=== PATIENT | female | born 1950 | race Caucasian/White ===

== ENCOUNTER → 2017-01-08 | Outpatient (CLI) | payer OTHER, MEDICARE ==
[~2017-01-08] MED LIST: AMLO2.5T PO; B-COCAP2 PO; CALC1CHW95 PO; CIME-56 PO; CYAN500T SL; CYCL5TAB PO; GLCS500 PO; HYDR0.5T PO; NSNN50 NAE; NTRGSL/4 UT; OMEG10007 PO; PANT40TA PO; PLQ200 PO; RALO60TA12 PO; SUMA100T16 PO; SUMA6KIT IM; SYN100 PO; TOPI100T34 PO; TRAM-10 PO; VALA500T60 PO; VITA1TAB4 PO; VITATAB11 PO; ZOLE5INJ IV
--- NOTE | 2017-01-08 15:19 | MAMMOGRAPHY REPORT ---
BILATERAL DIGITAL SCREENING MAMMOGRAM TOMOSYNTHESIS WITH CAD: 01/08/2017 CLINICAL HISTORY: Routine screening. Patient has no complaints. TECHNIQUE: Breast tomosynthesis in addition to standard 2D mammography was performed. Current study was also evaluated with a Computer Aided Detection (CAD) system. COMPARISON: Comparison is made to exams dated: 10/14/2014 mammogram - [facility], mammogram, 01/10/2011 mammogram, 11/07/2009 mammogram, 06/07/2008 mammogram, and 06/06/2007 junior mogram. BREAST COMPOSITION: The tissue of both breasts is heterogeneously dense, which may obscure small mas ses. FINDINGS: There is a benign rim calcification in the right breast. No suspicious mass, architectural distortion or cluster of microcalcifications is seen. IMPRESSION: ACR BI-RADS CATEGORY 1: NEGATIVE There is no mammographic evidence of malignancy. A 1 year screening mammogram is recommended. The pa tient will receive written notification of the results. Approximately 10% of breast cancers are not detected with mammography. A negative mammographic report should not delay biopsy if a clinically suggestive mass is present. Sonia Barnes M.D. ay/:01/08/2017 12:30:37 Sound Equipment Mechanic: [place], [facility] letter sent: Normal 1/2 BI-RADS Code: ACR BI-RADS Category 1: Negative
== END | disposition home or self-care (01) ==
LOC: C.MAMM 09:38
PROVIDERS: ATTEND Family Medicine
DX: Z12.31 Encounter for screening mammogram for malignant neoplasm of breast (principal)

== ENCOUNTER → 2017-02-06 | Outpatient (CLI) | payer OTHER, MEDICARE ==
[~2017-02-06] MED LIST changes: -RALO60TA12 PO; +RALO60TA30 PO
--- NOTE | 2017-02-06 16:31 | DIAGNOSTIC IMAGING REPORT ---
CHEST 2 VIEWS ROUTINE HISTORY: 66 years-old Female VIRAL URI W/COUGH,SOB acute cough and shortness of breath with upper respiratory infection COMPARISON: Chest radiograph 01/29/2017 TECHNIQUE: PA and lateral views of the chest FINDINGS: Cardiomediastinal and hilar silhouettes are within normal limits. There is atherosclerosis of the aorta. No pneumothorax, pleural effusion or focal airspace consolidation. There is improved aeration of left lung base from comparison. Mild hyperinflation. Degenerative changes are seen throughout the spine and shoulders. Remote right-sided rib fractures noted. IMPRESSION: No acute cardiopulmonary process. No lobar airspace consolidation to suggest pneumonia. The above report was generated using voice recognition software. It may contain grammatical, syntax or spelling errors. Electronically signed by: Bandar Rondon M.D. 02/06/2017 4:30 PM Dictated Date/Time: 02/06/2017 4:28 PM
== END | disposition home or self-care (01) ==
LOC: C.RAD1850 16:06
PROVIDERS: ATTEND Student in an Organized Health Care Education/Training Program
DX: R06.02 Shortness of breath (principal); J06.9 Acute upper respiratory infection, unspecified

== ENCOUNTER → 2017-02-19 | Outpatient (CLI) | payer OTHER, MEDICARE | END | disposition home or self-care (01) | LOC: C.RDSM 13:30 | PROVIDERS: ATTEND Orthopaedic Surgery Sports Medicine | DX: M79.672 Pain in left foot (principal) ==

== ENCOUNTER → 2017-03-13 | Outpatient (CLI) | payer OTHER, MEDICARE | END | disposition home or self-care (01) | LOC: C.RDSM 11:56 | PROVIDERS: ATTEND Orthopaedic Surgery Sports Medicine | DX: M79.672 Pain in left foot (principal) ==

== ENCOUNTER → 2017-07-29 | Outpatient (CLI) | payer OTHER, MEDICARE | END | disposition home or self-care (01) | LOC: C.MAMM 08:58 | PROVIDERS: ATTEND Internal Medicine Rheumatology | DX: M81.0 Age-related osteoporosis without current pathological fracture (principal); M85.851 Other specified disorders of bone density and structure, right thigh; M85.852 Other specified disorders of bone density and structure, left thigh ==

== ENCOUNTER 2018-10-18 09:47 | Inpatient (IN) ==
[2018-10-18] MEDS ORDERED: fentaNYL citrate 100 MCG/2 ML VIAL IV STA (10:18)
[2018-10-18] MEDS ORDERED: SODIUM CHLORIDE 0.9% 500 ML IV ONE (10:18)
[2018-10-18 10:54] LABS: Basophils # (auto) 0.11 K/uL (0-0.2); Basophils % (auto) 1.3 %; Eosinophils # (auto) 0.18 K/uL (0-0.5); Eosinophils % (auto) 2.1 %; Hematocrit (blood only) 41.3 % (37-47); Hemoglobin 14.2 g/dL (12.0-16.0); Immature Granulocytes # (auto) 0.02 K/uL (0.00-0.02); Immature Granulocytes % (auto) 0.2 %; Lymphocytes # (auto) 1.49 K/uL (1.2-3.4); Mean Corpuscular Hgb Conc 34.4 g/dL (32-36); Mean Corpuscular Volume 101.5 fL (80-100); Monocytes # (auto) 0.44 K/uL (0.11-0.59); Neutrophils # (auto) 6.53 K/uL (1.4-6.5); Neutrophils % (auto) 74.4 %; Platelet Count 329 K/uL (130-400); RDW Coefficient of Variation 13.7 % (11.5-14.5); RDW Standard Deviation 51.1 fL (36.4-46.3); Red Blood Count 4.07 M/uL (4.2-5.4); White Blood Count 8.77 K/uL (4.8-10.8)
--- NOTE | 2018-10-18 11:03 | XRay Report ---
SINGLE VIEW CHEST CLINICAL HISTORY: Atypical chest pain. FINDINGS: An AP, portable, upright chest radiograph is compared to study dated 01/29/2017. The cardiom ediastinal silhouette is unremarkable. Chronic interstitial thickening is similar to previous. No air space consolidation or large pleural effusion is identified. No pneumothorax is seen. The skeletal st ructures are osteopenic. There are healed right-sided rib fractures. Mild scoliosis is noted in the t horacic spine. IMPRESSION: No acute cardiopulmonary abnormality. Electronically signed by: Shravan Cueto M.D. 10/18/2018 11:02 AM
[2018-10-18 11:18] LABS: BUN Creatinine Ratio 9.8 (10-20); Bilirubin Direct 0.1 mg/dl (0-0.2); Calcium 8.8 mg/dl (8.5-10.1); Creatinine Clr Calc Pharmacy 36.5 ml/min; Est GFR (African American) 52.7; Est GFR (Non-African American) 45.5; Potassium 3.2 mmol/L (3.5-5.1)
[2018-10-18] MEDS ORDERED: MoRPHine SULFATE 10 MG/ML CARP/VIAL IV STA (11:18)
[2018-10-18] MEDS ORDERED: NITROGLYCERIN 2% OINTMENT 30GM TUBE EXT ONE (11:18)
[2018-10-18] MEDS ORDERED: ONDANSETRON INJ 2 MG/ML 2 ML VIAL ONE (11:39)
[2018-10-18 11:44] LABS: Bilirubin,Total 0.4 mg/dl (0.2-1); Total Protein 7.6 gm/dl (6.4-8.2); Troponin I 1.8 ng/ml (0-0.045)
[2018-10-18] MEDS ORDERED: methylPREDNISolone 125 MG/2 ML VIAL IV STA (12:04)
[2018-10-18] MEDS ORDERED: DiphenhydrAMINE HCL 50 MG/ML VIAL IV STA (12:04)
[2018-10-18] MEDS ORDERED: HEPARIN SODIUM/DEXTROSE 25,000 UNITS/500 ML BAG IV SCH (12:15)
[2018-10-18] MEDS: HEPARIN SOD 5,000 UNIT/0.5 ML VIAL ONE ×2 (12:17→13:33)
[2018-10-18] MEDS ORDERED: ASPIRIN CHEW 324 MG PO STA (13:23)
[2018-10-18] MEDS ORDERED: FAMOTIDINE 20MG IV PUSH 20 MG/5 ML SYR IV STA (13:23)
--- NOTE | 2018-10-18 13:27 | Cardiology Consultation ---
Date of Consultation October 18, 2018 Assessment & Plan (1) NSTEMI (non-ST elevated myocardial infarction): The patient's symptoms of chest discomfort are concerning for an acute coronary syndrome. She does have evidence of ischemia with an elevated troponin and EKG changes. She has a history of variant angina but describes her current symptoms as distinct from those she has experienced in the past. There were no ST elevations on her EKG. Her symptoms do not appear to have resolved with administration of nitroglycerin or narcotics. Based on the nature of her symptoms in the objective findings she was felt to be a good candidate for urgent angiography. She did have the procedure performed in 2010. I did describe the risks benefits and alternatives to the patient. Will plan on proceeding immediately. Alternate etiologies for symptoms include musculoskeletal pain, toxic suitable cardiomyopathy or aortic dissection. Her left ventricular function appeared to be normal without the typical pattern of takotsubo is injury. Her chest x-ray and echocardiogram did not support aortic dissection. She has normal and equal pulses in both arms. Present on Admission?: Yes (2) Hypokalemia: Will replete with oral potassium History of Present Illness Reason for Consultation: Chest pain Requesting Physician: Janki Attending Physician: Dawit History of Present Illness The patient is a 60-year-old woman with a history of variant angina who experienced the onset of substernal chest discomfort early this morning. Patient states that when she got up this morning she began experience some symptoms in the left precordium. Initially this was described as a heaviness. He later began to involve space between her shoulder blades and even relatively severe episode of discomfort involving the left neck, left shoulder and arm. There is not appear to be any change in the symptoms with changes in position or deep inspiration. The patient states that she has not had symptoms of this nature in the past. She has been under lot of stress over the last year. She had a alliance party last night at her house but did not report any other acute events over the past few days. 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 In general she is an active individual was able to perform mild to moderate activity without symptoms of limiting chest pain or significant dyspnea. Allergies Allergy/AdvReac Type Severity Reaction Status Date / Time Iodinated Contrast- Oral and Allergy Severe anaphylaxis Unverified 10/18/18 11:48 IV Dye penicillamine Allergy Unknown RASH, Verified 10/18/18 11:48 lupus-like rx Sulfa (Sulfonamide Allergy Unknown UNKNOWN Verified 10/18/18 11:48 Antibiotics) diflunisal AdvReac Intermediate KIDNEY Unverified 10/18/18 11:48 FAILURE NSAIDS (Non-Steroidal AdvReac Intermediate kidney Unverified 10/18/18 11:48 Anti-Inflamma failure gabapentin AdvReac Unknown hallucinati Unverified 10/18/18 11:48 ons Opioid Analgesics AdvReac Unknown gi Uncoded 10/18/18 11:48 intolerance Home Medications Home Medications Medication Instructions Recorded Confirmed Type nitroglycerin 0.4 mg UT q 5min x 3 #0 10/07/10 10/18/18 History valacyclovir 500 mg PO DAILY #0 10/07/10 10/18/18 History amlodipine 2.5 mg PO DAILY #0 tab 07/22/15 10/18/18 History calcium phosphate-vitamin D3 1 tab PO TID #0 07/22/15 10/18/18 History cyclobenzaprine 10 mg PO DIRECTED PRN #0 tab 07/22/15 10/18/18 History cyanocobalamin (vitamin B-12) 1,000 mg PO DAILY 03/08/18 10/18/18 History [Vitamin B-12] glucosamine sulfate 500 mg PO TID 03/08/18 10/18/18 History sumatriptan succinate [Imitrex] 50 mg PO DIRECTED PRN 03/08/18 10/18/18 History topiramate 100 mg PO BID 03/08/18 10/18/18 History vitamin B complex 1 tab PO DAILY 03/08/18 10/18/18 History vitamin E 400 unit PO DAILY 03/08/18 10/18/18 History vitamins-lipotropics 1 tab PO TID 03/08/18 10/18/18 History cimetidine 400 mg PO TID 05/24/18 10/18/18 History cyclobenzaprine 5 mg PO DAILY PRN 05/24/18 10/18/18 History docusate sodium 200 mg PO HS 05/24/18 10/18/18 History lorazepam [Ativan] 0.5 mg PO BID PRN #14 tab 05/24/18 10/18/18 Rx bupropion HCl 150 mg PO DAILY 10/18/18 10/18/18 History levothyroxine 88 mcg PO DAILY 10/18/18 10/18/18 History pantoprazole 20 mg PO DAILY 10/18/18 10/18/18 History sertraline 50 mg PO BID 10/18/18 10/18/18 History Patient History Medical History Eosinophilic fasciitis (Chronic) On chronic H2 annemarie History of shingles (Chronic) on chronic Valtrex History of hysterectomy (Chronic) CKD (chronic kidney disease), stage III (Chronic) Migraine (Chronic) History of angina (Chronic) Depression (Chronic) Anxiety (Chronic) Hypothyroidism (Chronic) Osteoarthritis (Chronic) CKD (chronic kidney disease) (Chronic) Eosinophilic fasciitis (Chronic) H/O: hysterectomy (Resolved) Surgical History History of cardiac catheterization (Chronic) 06/2010 at [facility] by Dr Maldonado - Normal coronary arteries History of appendectomy (Chronic) History of appendectomy (Resolved) Family History Other No pertinent family history Social History Preferred Language: Slovenian Communication Ability: Effective Beliefs That Will Affect Care: None Current Living Situation: Family Other Information That Helps Us Care for You: No Feels Safe at Home: Yes Safety Concerns: Feels Safe At This Time Smoking Status: Never smoker Hx Alcohol Use: No Hx Substance Use: No Review of Systems Review of Systems: All systems reviewed & are unremarkable except as noted in HPI & below No recent dizziness or lightheadedness. No history of chest pain over the past few years. She claims to be compliant with her medicines. Physical Exam Physical Exam: She is alert and oriented x3. Mood affect appear normal. She answered all questions appropriately. HEENT: Sclerae are anicteric. Pupils are equal and reactive to light and accommodation. Extraocular movements were intact. Neuro: Cranial nerves intact Neck: Examination of the submandibular region did not reveal any significant lymphadenopathy. Carotids are palpable bilaterally and free of bruits on auscultation. There was no evidence of jugular venous distention. The thyroid was not enlarged. Lungs: Lungs are clear to auscultation bilaterally. There are no rales wheezes or rhonchi. She has normal respiratory effort without use of accessory muscles. There is normal pulmonary excursion. Cardiac: The rhythm was regular. S1 and S2 were normal. There are no murmurs on examination. The PMI was not markedly displaced on palpation. Chest: No tenderness to palpation over the precordium or left shoulder Abdomen: The abdomen was soft and nontender. Extremities: Patient has bilateral radial pulses that are equal in intensity. There is no evidence cyanosis or clubbing. There was no evidence of significant peripheral edema bilaterally. Skin: There are no rashes noted on examination today. Results & Data Vital Signs (Past 12 Hours) Vital Signs Temp Pulse Pulse Resp BP BP Pulse Ox 10/18/18 11:45 64 18 139/73 96 10/18/18 10:39 73 21 118/75 98 10/18/18 10:02 36.8 C 77 16 125/73 98 10/18/18 09:56 96 Laboratory Results Abnormal Lab Results 10/18/18 10/18/18 10/18/18 09:40 09:40 09:40 WBC 8.77 RBC 4.07 L Hgb 14.2 Hct 41.3 MCV 101.5 H MCH 34.9 H MCHC 34.4 RDW Std Deviation 51.1 H RDW Coeff of Edmar 13.7 Plt Count 329 MPV 11.0 H Immature Gran % (Auto) 0.2 Neut % (Auto) 74.4 Lymph % (Auto) 17.0 [place] % (Auto) 5.0 Eos % (Auto) 2.1 Baso % (Auto) 1.3 Immature Gran # (Auto) 0.02 Neut # (Auto) 6.53 H Lymph # (Auto) 1.49 [place] # (Auto) 0.44 Eos # (Auto) 0.18 Baso # (Auto) 0.11 PT INR Sodium 142 Potassium 3.2 L Chloride 112 H Carbon Dioxide 20 L Anion Gap 10.0 BUN 12 Creatinine 1.22 H Est Cr Clr Drug Dosing 36.5 Est GFR ( Amer) 52.7 Est GFR (Non-Af Amer) 45.5 BUN/Creatinine Ratio 9.8 L Glucose 117 H Calcium 8.8 Magnesium 2.2 Total Bilirubin 0.4 Direct Bilirubin 0.1 AST 19 ALT 17 Alkaline Phosphatase 81 Troponin I 1.800 H* Total Protein 7.6 Albumin 4.0 Lipase 204 10/18/18 13:06 WBC RBC Hgb Hct MCV MCH MCHC RDW Std Deviation RDW Coeff of [place] Plt Count MPV Immature Gran % (Auto) Neut % (Auto) Lymph % (Auto) [place] % (Auto) Eos % (Auto) Baso % (Auto) Immature Gran # (Auto) Neut # (Auto) Lymph # (Auto) [place] # (Auto) Eos # (Auto) Baso # (Auto) PT 10.6 INR 1.0 Sodium Potassium Chloride Carbon Dioxide Anion Gap BUN Creatinine Est Cr Clr Drug Dosing Est GFR ( Amer) Est GFR (Non-Af Amer) BUN/Creatinine Ratio Glucose Calcium Magnesium Total Bilirubin Direct Bilirubin AST ALT Alkaline Phosphatase Troponin I Total Protein Albumin Lipase Diagnostic Findings Chest x-ray obtained the time of admission every any acute cardiopulmonary findings Echocardiogram performed today in the emergency room did not reveal any evidence of aortic dissection. There is very mild mitral regurgitation but preserved LV systolic function without regional wall motion abnormality ECG Additional Comments: Normal sinus rhythm with diffuse T-wave inversion
--- NOTE | 2018-10-18 13:27 | History & Physical Report ---
Date of Service October 18, 2018 Assessment & Plan (1) NSTEMI (non-ST elevated myocardial infarction): Pt with hx angina presented with c/o sternal CP started this morning with associated nausea, diaphoresis, SOB. Had 2 SL nitro prior to arrival with minimal relief. Was given aspirin by EMS. While in the ER chest pain radiated to left shoulder. In ER patient afebrile, pulse: 77, RR: 16, BP: 125/73, 98% on room air. No leukocytosis, H/H: 14/41, K: 3.2, magnesium: 2.2 troponin: 1.8. EKG: Sinus rhythm with inverted T waves septal, anterior, lateral which is changed compared to EKG September 12, 2013 Chest x-ray: no acute changes -In ER patient was given Nitropaste and morphine with some decrease chest pain. -Cardiology consult: Dr. Zeng saw patient in ER ordered bedside echo and plans to take patient to [facility] -In ER patient was started on heparin drip. -Benadryl and Solu-Medrol IV were given prior to cath secondary to history of reaction to IVP dye in past. -Monitor Vitals -Repeat EKG in am -Will trend troponin -Resting echo pending -Lipid panel in am -ASA -Cardiology on board (2) Hypokalemia: K: 3.2 -replace and monitor (3) CKD (chronic kidney disease), stage III: Cr: 1.2 (baseline 1.1-1.2) -Monitor renal functions -Avoid nephrotoxic agents when possible (4) Anxiety: (5) Depression: -Continue sertraline, bupropion -Continue Ativan as needed (6) Migraine: Denies current headache -Continue Topamax (7) Hypothyroidism: TSH: 3.1 on 05/20/2018 -Continue levothyroxine (8) Eosinophilic fasciitis: -Continue H2 annemarie DVT Prophylaxis -On heparin drip Full code as per discussion with pt Follows with Dr Rodger Tobar for routine care Pt was seen and care coordinated with Dr Pastor. See addendum History of Present Illness Chief Complaint: CP Primary Care Provider: Rodger Tobar, DO Pt is 68 y/o F with PMH angina, CKD III, hypothyroidism, anxiety, depression, migraine, eosinophilic fasciitis presented to ER with complaint of chest pain. Patient states this morning around 6:30 started with sternal chest heaviness. Patient states symptoms seem to ease up and she started trying to make breakfast and CP occurred again and described pain between shoulder blades with associated nausea and shortness of breath. Reports was feeling anxious and had some mild diaphoresis. Patient took 1 sublingual nitroglycerin at home without relief and the second was administered upon EMS arrival. Reported was given 4 baby aspirin by EMS. Patient states while in the ER chest pain radiated to left shoulder. In ER patient started on Nitropaste and given morphine with some decrease chest pain. Patient states morphine made her feel little dizzy. Denies fever/chills, V/D/C, DUONG, syncope, vision changes, orthopnea, palpitations, cough, sore throat, choking, otalgia, rhinorrhea, abdominal pain, paresthesias, weakness, extremity weakness, increased extremity edema, rashes, urinary symptoms. In ER EKG: Sinus rhythm with inverted T waves septal, anterior, lateral which is changed compared to EKG September 12, 2013. Dr. Zeng-cardiology ordered bedside echo and plans to take patient to [facility]. In ER patient was started on heparin. She was also given Benadryl and Solu-Medrol prior to cath. History cardiac cath 06/2010: Normal coronary arteries Allergies Allergy/AdvReac Type Severity Reaction Status Date / Time Iodinated Contrast- Oral and Allergy Severe anaphylaxis Unverified 10/18/18 11:48 IV Dye penicillamine Allergy Unknown RASH, Verified 10/18/18 11:48 lupus-like rx Sulfa (Sulfonamide Allergy Unknown UNKNOWN Verified 10/18/18 11:48 Antibiotics) diflunisal AdvReac Intermediate KIDNEY Unverified 10/18/18 11:48 FAILURE NSAIDS (Non-Steroidal AdvReac Intermediate kidney Unverified 10/18/18 11:48 Anti-Inflamma failure gabapentin AdvReac Unknown hallucinati Unverified 10/18/18 11:48 ons Opioid Analgesics AdvReac Unknown gi Uncoded 10/18/18 11:48 intolerance Home Medications Home Medications Medication Instructions Recorded Confirmed Type nitroglycerin 0.4 mg UT q 5min x 3 #0 10/07/10 10/18/18 History valacyclovir 500 mg PO DAILY #0 10/07/10 10/18/18 History amlodipine 2.5 mg PO DAILY #0 tab 07/22/15 10/18/18 History calcium phosphate-vitamin D3 1 tab PO TID #0 07/22/15 10/18/18 History cyclobenzaprine 10 mg PO DIRECTED PRN #0 tab 07/22/15 10/18/18 History cyanocobalamin (vitamin B-12) 1,000 mg PO DAILY 03/08/18 10/18/18 History [Vitamin B-12] glucosamine sulfate 500 mg PO TID 03/08/18 10/18/18 History sumatriptan succinate [Imitrex] 50 mg PO DIRECTED PRN 03/08/18 10/18/18 History topiramate 100 mg PO BID 03/08/18 10/18/18 History vitamin B complex 1 tab PO DAILY 03/08/18 10/18/18 History vitamin E 400 unit PO DAILY 03/08/18 10/18/18 History vitamins-lipotropics 1 tab PO TID 03/08/18 10/18/18 History cimetidine 400 mg PO TID 05/24/18 10/18/18 History cyclobenzaprine 5 mg PO DAILY PRN 05/24/18 10/18/18 History docusate sodium 200 mg PO HS 05/24/18 10/18/18 History lorazepam [Ativan] 0.5 mg PO BID PRN #14 tab 05/24/18 10/18/18 Rx bupropion HCl 150 mg PO DAILY 10/18/18 10/18/18 History levothyroxine 88 mcg PO DAILY 10/18/18 10/18/18 History pantoprazole 20 mg PO DAILY 10/18/18 10/18/18 History sertraline 50 mg PO BID 10/18/18 10/18/18 History Past Med/Surg History Medical History Eosinophilic fasciitis (Chronic) On chronic H2 annemarie History of shingles (Chronic) on chronic Valtrex History of hysterectomy (Chronic) CKD (chronic kidney disease), stage III (Chronic) Migraine (Chronic) History of angina (Chronic) Depression (Chronic) Anxiety (Chronic) Hypothyroidism (Chronic) Osteoarthritis (Chronic) CKD (chronic kidney disease) (Chronic) Eosinophilic fasciitis (Chronic) H/O: hysterectomy (Resolved) Surgical History History of cardiac catheterization (Chronic) 06/[address] [facility] by Dr Maldonado - Normal coronary arteries History of appendectomy (Chronic) History of appendectomy (Resolved) Family History Other No pertinent family history Social History Preferred Language: Bulgarian Communication Ability: Effective Beliefs That Will Affect Care: None Current Living Situation: Family Other Information That Helps Us Care for You: No Feels Safe at Home: Yes Safety Concerns: Feels Safe At This Time Smoking Status: Never smoker Hx Alcohol Use: No Hx Substance Use: No Review of Systems Review of Systems: All systems reviewed & are unremarkable except as noted in HPI & below Physical Exam Physical Exam: General: Mildly anxious appearing, WDWN Head: normocephalic, atraumatic Eyes: PERRL, EOM's intact, conjunctiva non-injected, anicteric ENT: normal inspection external ears, nose, mucous membranes moist Neck: supple, trachea midline Lungs: clear, no respiratory distress, no wheezing/rhonchi/rales CV: RRR, no murmur, chest wall without rashes and non-tender to palpation, no pretibial edema Abd: normal BS, soft, non-tender Ext: no cyanosis, no calf tenderness Neuro: A&O x 3, no focal deficits noted, anxious appearing Skin: warm, dry Results & Data Vital Signs (Past 12 Hours) Vital Signs Temp Pulse Pulse Resp BP BP Pulse Ox 10/18/18 11:45 64 18 139/73 96 10/18/18 10:39 73 21 118/75 98 10/18/18 10:02 36.8 C 77 16 125/73 98 10/18/18 09:56 96 Laboratory Results Short CBC 10/18/18 10/18/18 Range/Units 09:40 09:40 WBC 8.77 (4.8-10.8) K/uL Hgb 14.2 (12.0-16.0) g/dL Hct 41.3 (37-47) % Plt Count 329 (130-400) K/uL Creatinine 1.22 H (0.6-1.2) mg/dl BMP 10/18/18 09:40 Sodium 142 Potassium 3.2 L Chloride 112 H Carbon Dioxide 20 L BUN 12 Creatinine 1.22 H Glucose 117 H Calcium 8.8 Cardiac Enzymes 10/18/18 Range/Units 09:40 Troponin I 1.800 H* (0-0.045) ng/ml Liver Function 10/18/18 Range/Units 09:40 Total Bilirubin 0.4 (0.2-1) mg/dl Direct Bilirubin 0.1 (0-0.2) mg/dl AST 19 (15-37) U/L ALT 17 (12-78) U/L Alkaline Phosphatase 81 (45-117) U/L Albumin 4.0 (3.4-5.0) gm/dl Diagnostic Findings CXR: IMPRESSION: No acute cardiopulmonary abnormality. Supervising Physician Co-Signing Physician Notes I saw this patient with the physician senior assistant manager, I participated in the history, physical, review of systems, and physical exam. I reviewed the medications with the patient and the physician senior assistant manager and helped reconcile the medications. I helped take a detailed family and social history as well. I formulated the assessment and plan personally with the physician senior assistant manager and went over it with the patient. PT had a normal echo and a clean cath. ROS-No Headache, No Visual Changes, No Nausea, No Vomiting, No Fever, No Chills, No Neck Pain or Stiffness, + Chest Pain, No Palpitations, No SOB, No MONROE, No Cough, No Sputum, No Wheezing, No Abdominal Pain, No Diarrhea, No Hematemesis, No Hemoptysis, No Unexpected Weight Loss, No Flank pain, No Melena, No Hematochezia, No Frequency, No Urgency, No Burning, No Hematuria, No Rashes, No Diaphoresis. Appetite is Normal Physical Exam Gen-AAO x 3, NAD, Afebrile Head-NCAT, EOMI, PERRLA, Anicteric Sclera, No Posterior Pharyngeal Erythema Neck-Supple, No JVD, No Thyromegaly, No Masses, No LAD, No Bruits Lungs-Clear to Auscultation Bilaterally, No Rales, No Rhonchi, No Wheezing, No Crepitus Chest-No S4, +S1, +S2, No S3, No Murmurs, No Rubs, No Gallops, No Ectopy Abdomen-Soft, Bowel Sounds Present, Non Tender, Non Distended, No Hepatomegaly, No Splenomegaly, No Palpable Masses, No Rebound, No Rigidity, No Guarding Musculoskeletal-Full Range of Motion Bilaterally, No CVAT Extremities-No Cyanosis, No Clubbing, No Edema Nuero-Cranial Nerves II-XII grossly intact, Motor WNL, DTRs WNL, Strength WNL, Non Focal Psych-Normal Mood
[2018-10-18 13:30] LABS: Prothrombin Time 10.6 Seconds (9.0-12.0)
[2018-10-18] MEDS ORDERED: NiCARDipine HCL INJ 2.5 MG/ML 10 ML AMP ONE (13:59)
[2018-10-18] MEDS ORDERED: MIDAZOLAM HCL 1 MG/ML 2ML VIAL ONE (14:00)
[2018-10-18] MEDS ORDERED: fentaNYL citrate 100 MCG/2 ML VIAL ONE (14:00)
[2018-10-18] MEDS ORDERED: NITROGLYCERIN/D5W 100MCG/ML 20ML SYR ONE (14:01)
--- NOTE | 2018-10-18 14:26 | Pre Anesthesia Assessment ---
Date of Service October 18, 2018 Pre Sedation Assessment Vital Signs Temp Pulse Pulse Resp BP BP Pulse Ox 10/18/18 13:32 77 17 115/97 98 10/18/18 13:31 70 18 115/97 97 10/18/18 11:45 64 18 139/73 96 10/18/18 10:39 73 21 118/75 98 10/18/18 10:02 36.8 C 77 16 125/73 98 10/18/18 09:56 96 Cardiovascular + regular rate Respiratory + respiratory effort normal Pre-Sedation Airway Assessment Smoking Status: Never smoker Hx Sleep Apnea: No Hx Difficult Intubation: No Short, Thick Neck: No Thyromental Distance: > or= 3.5 Finger Breadths Oral Cavity: + WNL Mallampati Class: III ASA: ASA3 Procedure Planning Contraindications for Sedation: none Current Medications Reviewed: Yes Notes The planned sedation has been discussed with the patient. Informed Consent was obtained. I have identified the patient, determined the appropriateness of sedation and have assessed the patient immediately prior to the procedure. All medicine(s) and interventions are by my order.
[2018-10-18] MEDS ORDERED: POTASSIUM CHLORIDE 20 MEQ TABCR PO STA (14:55)
[2018-10-18] MEDS ORDERED: SODIUM CHLORIDE 0.9% 1000ML 1,000 ML IV SCH (15:00)
[2018-10-18] MEDS ORDERED: OPTIRAY 320 125ml IV PRN (15:00)
--- NOTE | 2018-10-18 15:02 | Cardiac Catheterization ---
Cardiac Cath Procedure: Brief Procedure Date October 18, 2018 Pre-Procedure Diagnosis Pre-Procedure Diagnosis: Non STEMI AUC Score AUC Score: 8 Post-Procedure Diagnosis Post-Procedure Diagnosis: Normal Coronary Arteries Procedure(s) Performed Procedure(s) Performed: Coronary Angiography and Left Heart Cath Destination Sign Repairer Gómez Zeng MD Computer Trainer(s) none Estimated Blood Loss Estimated Blood Loss: 5cc Medication(s) Medication(s): Fentanyl, Heparin, Nicardipine, Nitroglycerin and Versed Preliminary Findings Normal coronary arteries and left ventricular filling pressure. Recommendations Recommendations: None Specimens Specimens: None Procedural Complication(s) None Disposition PCU
--- NOTE | 2018-10-18 15:19 | CT Scan Report ---
CHEST CTA for AORTIC DISSECTION CT DOSE: 400.80 mGy.cm HISTORY: Atypical chest pain. r/o aortic dissection TECHNIQUE: Multiaxial CT images of the chest were performed both before and after the intravenous adm inistration of contrast to evaluate the aorta. Maximal intensity projection images were also obtained . A dose lowering technique was utilized adhering to the principles of ALARA. COMPARISON STUDY: None. FINDINGS: Noncontrast imaging through the chest shows no evidence for an intramural hematoma. The tho racic aorta is normal in caliber with no evidence for dissection. The heart is normal in size. No ple ural or pericardial effusions. No evidence for pulmonary embolus. No acute fractures within the visua lized osseous structures. The visualized liver, spleen, and adrenal glands are unremarkable. Normal e sophagus. No mediastinal or hilar lymphadenopathy. No pneumothorax. The central airways are patent. N o focal lung consolidations to suggest pneumonia. IMPRESSION: No evidence for an aortic dissection. Electronically signed by: Preston Reed M.D. 10/18/2018 3:17 PM
--- NOTE | 2018-10-18 17:29 | Cardiac Catheterization ---
Date of Service October 18, 2018 Cardiac Cath Report Cardiac Cath Report Procedure performed: Cardiac catheterization Staff crm developer: Gómez Zeng MD Indication: The patient is a 60-year-old woman with a history of variant angina who presented to the emergency room with symptoms of chest discomfort. Despite the usual efforts she continued to have chest pain, EKG changes and elevated cardiac biomarkers. He is therefore brought to the catheterization suite in urgent fashion for coronary angiography. Procedure in detail: The patient was informed of the risks benefits and alternatives to the intended procedure, he understood such and wished to proceed. She was taken to the cardiac catheterization suite in a fasting state. Conscious sedation was administered per protocol and the patient was monitored electrocardiographically throughout today's procedure. The right wrist area was prepped and draped in usual sterile fashion. This area was anesthetized using subcutaneous administration of a lidocaine solution. The right radial artery was then accessed using Seldinger technique, and a arterial sheath was placed at this site over a guidewire. The sheath was used to facilitate passage of the cardiac catheter for coronary angiography and left heart catheterization. Coronary angiogram was then obtained in multiple orthogonal views prior to removal of the catheter. At the conclusion of the procedure the sheath was removed and hemostasis was achieved at the access site using manual pressure. The patient tolerated procedure well, there were no immediate complications. Equipment used: 5 Setswana tiger 4 Findings: Opening aortic pressure: Left ventricular pressure: Left ventricular end-diastolic pressure: Closing aortic pressure: Coronary angiography: Left main: The left main coronary artery was normal in size and caliber. It bifurcated normally into the left anterior descending left circumflex arteries. There is no disease in this vessel Left anterior descending: Left anterior descending was a large transapical vessel. The produce a large 1st diagonal branch in 2 diminutive additional diagonal branches. There is no angiographic disease in this vessel. Left circumflex: Left circumflex was a non dominant vessel. It produced a sma ll OM1 and a large om 2. There is no significant disease in this vessel Ramus intermedius: There was a small ramus intermedius without obvious disease Right coronary artery: The right coronary artery was a dominant vessel. There is no angiographic disease in this vessel Impression: Right-dominant coronary system Normal left ventricular end-diastolic pressures No evidence of aortic stenosis Normal coronary arteries without obstructive coronary disease No evidence of acute coronary syndrome or spasm
[2018-10-18] MEDS: LORazepam 0.5 MG TAB PO PRN (20:13)
[2018-10-18] MEDS: DOCUSATE SODIUM 100 MG CAP PO SCH (20:14)
[2018-10-18] MEDS: TOPIRAMATE 100 MG TAB PO SCH (20:16)
[2018-10-18] MEDS ORDERED: Nursing to Pharmacy Communication ONE (20:43)
[2018-10-18] MEDS ORDERED: SERTRALINE HCL 50 MG TABLET PO SCH (21:00)
[2018-10-18] MEDS: SERTRALINE HCL 50 MG TABLET PO SCH (22:45)
[2018-10-19] MEDS: LEVOTHYROXINE SODIUM 88 MCG TABLET PO SCH (05:37)
[2018-10-19] MEDS: ASPIRIN 81 MG ECTAB PO SCH (08:09)
[2018-10-19] MEDS: BuPROPion XL 150 MG TABCR PO SCH (08:09)
[2018-10-19] MEDS: FAMOTIDINE 20 MG TAB PO SCH ×2 (08:09→10:04)
[2018-10-19] MEDS: PANTOprazole 40 MG TAB PO SCH (08:09)
[2018-10-19] MEDS: TOPIRAMATE 100 MG TAB PO SCH ×2 (08:09→20:44)
[2018-10-19] MEDS: SERTRALINE HCL 50 MG TABLET PO SCH (08:12)
[2018-10-19 08:23] LABS: Hemoglobin 12.7 g/dL (12.0-16.0); Mean Corpuscular Hgb Conc 33.4 g/dL (32-36); Mean Corpuscular Volume 102.2 fL (80-100); Mean Platelet Volume 10.5 fL (7.4-10.4); Platelet Count 265 K/uL (130-400); RDW Coefficient of Variation 13.8 % (11.5-14.5); RDW Standard Deviation 51.6 fL (36.4-46.3); Red Blood Count 3.72 M/uL (4.2-5.4); White Blood Count 11.45 K/uL (4.8-10.8)
[2018-10-19] MEDS ORDERED: VALACYCLOVIR HCL 500 MG TABLET PO SCH ×2 (09:00→21:00)
[2018-10-19] MEDS ORDERED: AMLODIPINE BESYLATE 5 MG TAB PO SCH ×2 (09:00→21:00)
[2018-10-19 09:05] LABS: BUN Creatinine Ratio 17.8 (10-20); Calcium 8.2 mg/dl (8.5-10.1); Creatinine Clr Calc Pharmacy 42.8 ml/min; Est GFR (African American) 63.9; Est GFR (Non-African American) 55.2; Potassium 3.9 mmol/L (3.5-5.1)
[2018-10-19] MEDS ORDERED: ACETAMINOPHEN 325 MG TAB PO PRN (09:17)
--- NOTE | 2018-10-19 09:20 | Emergency Department Note ---
Entered by Sheri Russell acting as a scribe for ED Provider Note Name: Miryam Bean Age: 68 Arrives Via: EMS Informant: Patient CC: Back and Chest Pain HPI: A 62 year old female arrives for evaluation of center chest and back pain that began 4 hours ago after she started walking after waking up this morning at 645. The patient reports the pain radiates into her shoulders. The patient describes the pain as intermittent and comes in spasms. The patient reports that she has had angina in the past, but she notes she has never experienced symptoms like this before. The patient denies stents, but she notes she had a clean heart cath test several years ago. The patient also denies history of aorta issues, bleeding disorders, hypertension, hyperlipidemia, diabetes, blood clots, or family history of heart disease. The patient does note anxiety issues that she has been seeing a psychiatrist for since September. The patient states EMS gave her 2 NG and aspirin prior to arrival, and she notes taking Ativan. The patient also reports she is allergic to IV dye, which causes convulsions, and she states she does not want opiates. ROS: See above HPI for pertinent positives & negatives. A total of 10 systems reviewed and were otherwise negative. Past Medical History: Anxiety, eosinophilic fasciitis, osteoarthritis, chronic kidney disease Past Surgical History: Appendectomy, hysterectomy. Family History: No significant family history. Social History: Never smoker. Home Medications: Ativan Allergies Allergic to IV dye. Physical: Vitals: BP 139/73. Pulse 64. Resp 18. Temp 36.8. O2 Sat 96. Room Air Exam: GENERAL: Patient is very anxious appearing and is periodically spasming in bed. EYES: No scleral icterus, unremarkable pupils. ENT: Mucous membranes moist, no nasal congestion. NECK: No masses appreciated, no meningismus, trachea is midline. RESPIRATORY: No dyspnea. Clear to auscultation and equal bilaterally. No wheeze, no rhonchi. CARDIOVASCULAR: Regular rate and rhythm. No murmurs, rubs, gallops appreciated. GASTROINTESTINAL: Abdomen soft, non-tender, no peritonitis. Bowel sounds positive. No masses appreciated. BACK: No midline tenderness, no CVA tenderness EXTREMITIES: Normal motion all extremities, no cyanosis, no edema. NEUROLOGIC: Alert and oriented, no acute motor or sensory deficits, no focal weakness, cranial nerves grossly intact. SKIN: No rash, no jaundice, no diaphoresis. ED Course: Prior Medical Record, Triage/Nursing Notes, Medications, Allergies reviewed by Me Vital Signs: reviewed and remarkable for wnl Labs: Reviewed and remarkable for elevated Troponin Interventions: saline lock, Fentanyl 50mcg IV, Morphine 6mg IV, Zofran 4mg IV, Nitro 1in paste, NSS infusion, Heparin bolus/gtt Imaging: Radiology results as stated below per my review and the radiologist's interpretation: SINGLE VIEW CHEST CLINICAL HISTORY: Atypical chest pain. FINDINGS: An AP, portable, upright chest radiograph is compared to study dated 01/29/2017. The cardiomediastinal silhouette is unremarkable. Chronic interstitial thickening is similar to previous. No airspace consolidation or large pleural effusion is identified. No pneumothorax is seen. The skeletal structures are osteopenic. There are healed right-sided rib fractures. Mild sc oliosis is noted in the thoracic spine. IMPRESSION: No acute cardiopulmonary abnormality. Electronically signed by: Shravan Cueto M.D. 10/18/2018 11:02 AM EKG: Per My Interpretation: Indication Chest Pain: NSR 74 qtc 457. Lateral t waves mildly more pronounced than previously without stemi. Otherwise similar to 09/12/2013 Course: 1012: Past medical records reviewed. The patient was evaluated in room B7. A complete history and physical exam was performed. 1118: I reevaluated and updated the patient. The patient is looking much more comfortable but she states she still has dull pain. She would like something more for pain. 1204: I reevaluated the patient. The patient has no more chest pain. She agrees to start heparin. The patient understands the severe risk of bleeding and the severe outcomes that could arise if aorta is the issue. The patient agrees to Benadryl and steroid in case she needs contrast dye. 1210: I reevaluated the patient. The patient is stable beyond chief complaint. 1210: I discussed the patient's case with Tabatha Aguero. Dr. Antonietta Aguero Hospitalist will further evaluate the patient. Blood pressure: Normal. No Referral necessary Disposition: Hospitalization Differentials: Differential diagnosis: Etiologies such as cardiac ischemia, aortic dissection, pulmonary embolism, pneumonia, pneumothorax, musculoskeletal, infections, pericarditis, myocarditis, esophageal rupture, gastrointestinal, as well as others were entertained. Medical Decision Making: Pleasant 68 yr old female quite anxious arrives for evaluation of central chest pain that radiates to back (as well at times to jaw). She was already given ASA 324 mg and SLNTG by EMS without any improvements. She was given IV fentanyl here with improvement, which after wearing off she was given Morphine with good result. Repeat EKG unchanged. Good pulses all 4. She has normal CXR. She does not have typical dissection symptoms and given her allergy to IV contrast I do not feel that doing CT would be appropriate. She is stable, breathing comfortably and no further distress. Reviewed with cards who agree with getting stat ECHO and admit. She has no evidence nor history of PE. Trop returned positive as well. While here symptoms actually seem a bit atypical for ACS, with positive Trop must assume NSTEMI until proven otherwise. Discussed pros/cons and significant risks of starting heparin and with shared decision making she agrees with starting this. We specifically discussed if dissection the risks of severe bleeding/. She was furthermore given IV solumedrol/b enadryl in preparation for presumed cath later on. Impression: Acute Non-ST Elevation Myocardial Infarction (NSTEMI) Critical Care Time: I have personally spent greater than 35 minutes of critical care time in the direct management of this patient. ACS with positive Troponin started on heparin. This was a life/limb threatening event. This includes time spent evaluating patient, direct bedside care, chart review, placing orders, interpretation of diagnostic studies, discussion with consultants, patient, and family members, as well as other required patient management activities. This 35 minutes is in excess of all separately billable procedures. The scribe's documentation has been prepared under my direction and personally reviewed by me in its entirety. I confirm that the note above accurately reflects all work, treatment, procedures, and medical decision making performed by me. Himanshu Shearer MD Impression & Plan Acute non-ST elevation myocardial infarction (NSTEMI) Past Med/Surg History Medical History Eosinophilic fasciitis (Chronic) On chronic H2 annemarie History of shingles (Chronic) on chronic Valtrex History of hysterectomy (Chronic) CKD (chronic kidney disease), stage III (Chronic) Migraine (Chronic) History of angina (Chronic) Depression (Chronic) Anxiety (Chronic) Hypothyroidism (Chronic) Osteoarthritis (Chronic) CKD (chronic kidney disease) (Chronic) Eosinophilic fasciitis (Chronic) H/O: hysterectomy (Resolved) Surgical History History of cardiac catheterization (Chronic) 06/2010 at [facility] by Dr Maldonado - Normal coronary arteries History of appendectomy (Chronic) History of appendectomy (Resolved) Family History Other No pertinent family history Social History Preferred Language: Uzbek Communication Ability: Effective Beliefs That Will Affect Care: None Current Living Situation: Family Other Information That Helps Us Care for You: No Feels Safe at Home: Yes Safety Concerns: Feels Safe At This Time Smoking Status: Never smoker Hx Alcohol Use: No Hx Substance Use: No Results & Data Vital Signs Vital Signs - 24 hr 10/18/18 09:56 10/18/18 10:02 10/18/18 10:39 Temperature 36.8 C Temperature Source Oral Sepsis Recent Fever Within 48 Hours No Sepsis New/Unexplained Change in Mental Status No Sepsis Action Taken by Nursing No Action Required Pulse Rate 77 Pulse Rate [Left] 73 Pulse Rhythm [Left] Respiratory Rate 16 21 Respiratory Effort / Characteristics Non-Labored Spontaneous Non-Labored Spontaneous Respiratory Depth Respiratory Pattern Blood Pressure 125/73 Blood Pressure [Left Arm] Blood Pressure [Right Arm] 118/75 Blood Pressure Mean 90 Blood Pressure Mean [Left Arm] Blood Pressure Mean [Right Arm] 89 Blood Pressure Position Lying Blood Pressure Position [Left Arm] Blood Pressure Position [Right Arm] Lying Pulse Oximetry 96 98 98 Oxygen Delivery Method Room Air Room Air Room Air 10/18/18 11:45 10/18/18 12:26 10/18/18 13:31 Temperature Temperature Source Sepsis Recent Fever Within 48 Hours Sepsis New/Unexplained Change in Mental Status Sepsis Action Taken by Nursing Pulse Rate Pulse Rate [Left] 64 70 Pulse Rhythm [Left] Regular Regular Respiratory Rate 18 18 Respiratory Effort / Characteristics Non-Labored Spontaneous Non-Labored Spontaneous Non-Labored Spontaneous Respiratory Depth Normal Normal Normal Respiratory Pattern Regular Regular Regular Blood Pressure Blood Pressure [Left Arm] Blood Pressure [Right Arm] 139/73 115/97 Blood Pressure Mean Blood Pressure Mean [Left Arm] Blood Pressure Mean [Right Arm] 95 103 Blood Pressure Position Blood Pressure Position [Left Arm] Blood Pressure Position [Right Arm] Pulse Oximetry 96 97 Oxygen Delivery Method Room Air Room Air Room Air 10/18/18 13:32 10/18/18 14:15 10/18/18 15:04 Temperature 37.1 C Temperature Source Oral Sepsis Recent Fever Within 48 Hours Sepsis New/Unexplained Change in Mental Status Sepsis Action Taken by Nursing Pulse Rate 73 Pulse Rate [Left] 77 62 Pulse Rhythm [Left] Regular Respiratory Rate 17 17 18 Respiratory Effort / Characteristics Non-Labored Spontaneous Respiratory Depth Normal Respiratory Pattern Regular Blood Pressure 118/89 Blood Pressure [Left Arm] 146/76 H Blood Pressure [Right Arm] 115/97 Blood Pressure Mean Blood Pressure Mean [Left Arm] 99 Blood Pressure Mean [Right Arm] 103 Blood Pressure Position Blood Pressure Position [Left Arm] Lying Blood Pressure Position [Right Arm] Pulse Oximetry 98 98 97 Oxygen Delivery Method Room Air Room Air Room Air Laboratory Data Result diagrams: 10/19/18 08:09 10/19/18 08:09 Lab Results 10/18/18 10/18/18 10/18/18 Range/Units 09:40 09:40 09:40 WBC 8.77 (4.8-10.8) K/uL RBC 4.07 L (4.2-5.4) M/uL Hgb 14.2 (12.0-16.0) g/dL Hct 41.3 (37-47) % MCV 101.5 H (80-100) fL MCH 34.9 H (25-34) pg MCHC 34.4 (32-36) g/dL RDW Std Deviation 51.1 H (36.4-46.3) fL RDW Coeff of Edmar 13.7 (11.5-14.5) % Plt Count 329 (130-400) K/uL MPV 11.0 H (7.4-10.4) fL Immature Gran % (Auto) 0.2 % Neut % (Auto) 74.4 % Lymph % (Auto) 17.0 % Morris % (Auto) 5.0 % Eos % (Auto) 2.1 % Baso % (Auto) 1.3 % Immature Gran # (Auto) 0.02 (0.00-0.02) K/uL Neut # (Auto) 6.53 H (1.4-6.5) K/uL Lymph # (Auto) 1.49 (1.2-3.4) K/uL Morris # (Auto) 0.44 (0.11-0.59) K/uL Eos # (Auto) 0.18 (0-0.5) K/uL Baso # (Auto) 0.11 (0-0.2) K/uL PT (9.0-12.0) Seconds INR (0.9-1.1) Sodium 142 (136-145) mmol/L Potassium 3.2 L (3.5-5.1) mmol/L Chloride 112 H (98-107) mmol/L Carbon Dioxide 20 L (21-32) mmol/L Anion Gap 10.0 (3-11) BUN 12 (7-18) mg/dl Creatinine 1.22 H (0.6-1.2) mg/dl Est Cr Clr Drug Dosing 36.5 ml/min Est GFR ( Amer) 52.7 Est GFR (Non-Af Amer) 45.5 BUN/Creatinine Ratio 9.8 L (10-20) Glucose 117 H (70-99) mg/dl Calcium 8.8 (8.5-10.1) mg/dl Magnesium 2.2 (1.8-2.4) mg/dl Total Bilirubin 0.4 (0.2-1) mg/dl Direct Bilirubin 0.1 (0-0.2) mg/dl AST 19 (15-37) U/L ALT 17 (12-78) U/L Alkaline Phosphatase 81 (45-117) U/L Troponin I 1.800 H* (0-0.045) ng/ml Total Protein 7.6 (6.4-8.2) gm/dl Albumin 4.0 (3.4-5.0) gm/dl Lipase 204 (73-393) U/L 10/18/18 Range/Units 13:06 WBC (4.8-10.8) K/uL RBC (4.2-5.4) M/uL Hgb (12.0-16.0) g/dL Hct (37-47) % MCV (80-100) fL MCH (25-34) pg MCHC (32-36) g/dL RDW Std Deviation (36.4-46.3) fL RDW Coeff of Edmar (11.5-14.5) % Plt Count (130-400) K/uL MPV (7.4-10.4) fL Immature Gran % (Auto) % Neut % (Auto) % Lymph % (Auto) % Morris % (Auto) % Eos % (Auto) % Baso % (Auto) % Immature Gran # (Auto) (0.00-0.02) K/uL Neut # (Auto) (1.4-6.5) K/uL Lymph # (Auto) (1.2-3.4) K/uL Morris # (Auto) (0.11-0.59) K/uL Eos # (Auto) (0-0.5) K/uL Baso # (Auto) (0-0.2) K/uL PT 10.6 (9.0-12.0) Seconds INR 1.0 (0.9-1.1) Sodium (136-145) mmol/L Potassium (3.5-5.1) mmol/L Chloride (98-107) mmol/L Carbon Dioxide (21-32) mmol/L Anion Gap (3-11) BUN (7-18) mg/dl Creatinine (0.6-1.2) mg/dl Est Cr Clr Drug Dosing ml/min Est GFR ( Amer) Est GFR (Non-Af Amer) BUN/Creatinine Ratio (10-20) Glucose (70-99) mg/dl Calcium (8.5-10.1) mg/dl Magnesium (1.8-2.4) mg/dl Total Bilirubin (0.2-1) mg/dl Direct Bilirubin (0-0.2) mg/dl AST (15-37) U/L ALT (12-78) U/L Alkaline Phosphatase (45-117) U/L Troponin I (0-0.045) ng/ml Total Protein (6.4-8.2) gm/dl Albumin (3.4-5.0) gm/dl Lipase (73-393) U/L Administered Medications Aspirin ([facility]rin Ectab) [facility] [place]: 11/18/18 08:59 Last Admin: 10/19/18 08:09 Dose: 81 mg Documented by: [id number] Bupropion HCl (Wellbutrin-Xl) 150 mg PO DAILY [facility] Stop: 11/18/18 08:59 Last Admin: 10/19/18 08:09 Dose: 150 mg Documented by: [id number] Docusate Sodium (Colace) 200 mg PO HS [facility] Stop: 11/17/18 20:59 Last Admin: 10/18/18 20:14 Dose: Not Given Documented by: [id number] Ioversol (Optiray 320 125ml) 118 ml IV ONCE PRN PRN Reason: Interaction Checking Stop: 10/22/18 14:59 Last Admin: 10/18/18 15:01 Dose: 118 ml Documented by: [id number] Levothyroxine Sodium (Synthroid) 88 mcg PO DAILYBB [facility] Stop: 11/18/18 06:29 Last Admin: 10/19/18 05:37 Dose: 88 mcg Documented by: [id number] Lorazepam (Ativan) 0.5 mg PO BID PRN PRN Reason: anxiety Stop: 11/17/18 15:16 Last Admin: 10/18/18 20:13 Dose: 0.5 mg Documented by: [id number] Pantoprazole Sodium (Protonix) 40 mg PO DAILY [facility] Stop: 11/18/18 08:59 Last Admin: 10/19/18 08:09 Dose: 40 mg Documented by: [id number] Sertraline HCl (Zoloft) 100 mg PO HS [facility] Stop: 11/17/18 20:59 Last Admin: 10/19/18 08:12 Dose: 100 mg Documented by: [id number] Admin: 10/18/18 22:45 Dose: 50 mg Documented by: [id number] Topiramate (Topamax) 100 mg PO BID [facility] Stop: 11/17/18 20:59 Last Admin: 10/19/18 08:09 Dose: 100 mg Documented by: [id number] Admin: 10/18/18 20:16 Dose: 100 mg Documented by: [id number] Discontinued Medications Amlodipine Besylate (Norvasc) 2.5 mg PO DAILY [facility] Stop: 11/18/18 08:59 Last Admin: 10/18/18 20:15 Dose: 2.5 mg Documented by: [id number] Aspirin (Aspirin) 324 mg PO NOW STA Stop: 10/18/18 13:24 Last Admin: 10/18/18 13:27 Dose: 324 mg Documented by: [id number] Diphenhydramine HCl (Benadryl) 50 mg IV NOW STA Stop: 10/18/18 12:05 Last Admin: 10/18/18 13:07 Dose: 50 mg Documented by: [id number] Fentanyl Citrate (Fentanyl Citrate) 50 mcg IV NOW STA Stop: 10/18/18 10:19 Last Admin: 10/18/18 10:38 Dose: 50 mcg Documented by: [id number] Fentanyl Citrate (Fentanyl Citrate) Confirm Administered Dose 100 mcg .ROUTE .S TK-MED ONE Stop: 10/18/18 14:01 Last Increment: 10/18/18 14:48 Dose: 25 mcg Documented by: [id number] Heparin Sodium (Porcine) (Heparin Sodium (Porcine)) Confirm Administered Dose 5,000 units .ROUTE .STK-MED ONE Stop: 10/18/18 12:17 Last Admin: 10/18/18 13:33 Dose: 4,000 units Documented by: [id number] Cosigned by: [id number] Heparin Sodium/Dextrose () 1 ea IV NOW STA; Protocol Stop: 10/18/18 12:09 Last Admin: 10/18/18 12:19 Dose: Not Given Documented by: [id number] Heparin Sodium/Sodium Chloride (Heparin/Nss 1000 Unit/500ml Flush Bag) Confirm Administered Dose 3,000 units IV .STK-MED ONE Stop: 10/18/18 14:01 Last Admin: 10/18/18 14:34 Dose: 3,000 units Documented by: [id number] Sodium Chloride (Nss) 500 mls @ 999 mls/hr IV .Q31M ONE Stop: 10/18/18 10:48 Last Infusion: 10/18/18 11:09 Dose: 0 mls/hr Documented by: [id number] Admin: 10/18/18 10:38 Dose: 999 mls/hr Documented by: [id number] Heparin Sodium/Dextrose (Heparin Sodium/Dextrose) 25,000 units in 500 mls @ 20 mls/hr IV .Q24H [facility]ERTR[facility]; Protocol Stop: 11/17/18 12:14 Last Titration: 10/18/18 14:10 Dose: 0 units/hr, 0 mls/hr Documented by: [id number] Cosigned by: [id number] Titration: 10/18/18 13:34 Dose: 1,000 units/hr, 20 mls/hr Documented by: [id number] Cosigned by: [id number] Titration: 10/18/18 12:19 Dose: 0 units/hr, 0 mls/hr Documented by: [id number] Cosigned by: [id number] Admin: 10/18/18 12:19 Dose: 1,000 units/hr, 20 mls/hr Documented by: [id number] Cosigned by: [id number] Famotidine (Pepcid 20mg Iv Push) 20 mg in 5 mls @ 2.5 mls/min IV NOW STA Stop: 10/18/18 13:24 Last Admin: 10/18/18 13:27 Dose: 2.5 mls/min Documented by: [id number] Sodium Chloride (Nss 1000ml) 1,000 mls @ 70 mls/hr IV .[id number] [facility]ER[facility] Stop: 10/19/18 03:59 Last Infusion: 10/19/18 06:25 Dose: 0 mls/hr Documented by: [id number] Admin: 10/18/18 16:24 Dose: 70 mls/hr Documented by: [id number] Methylprednisolone (Solumedrol) 125 mg IV NOW STA Stop: 10/18/18 12:05 Last Admin: 10/18/18 13:07 Dose: 125 mg Documented by: [id number] Midazolam HCl (Versed) Confirm Administered Dose 2 mg .ROUTE .STK-MED ONE Stop: 10/18/18 14:01 Last Increment: 10/18/18 14:48 Dose: 1 mg Documented by: [id number] Morphine Sulfate (Morphine Sulfate) 6 mg IV NOW STA Stop: 10/18/18 11:19 Last Admin: 10/18/18 11:43 Dose: 6 mg Documented by: [id number] Nicardipine HCl (Cardene) Confirm Administered Dose 25 mg .ROUTE .STK-MED ONE Stop: 10/18/18 14:00 Last Admin: 10/18/18 14:33 Dose: 25 mg Documented by: [id number] Nitroglycerin (Nitro-Bid 2%) 1 inch EXT NOW ONE Stop: 10/18/18 11:19 Last Admin: 10/18/18 11:36 Dose: 1 inch Documented by: Nitroglycerin/Dextrose (Nitroglycerin/D5w 100 Mcg/Ml 20ml Syringe) Confirm Administered Dose 2,000 mcg .ROUTE .STK-MED ONE Stop: 10/18/18 14:02 Last Admin: 10/18/18 14:34 Dose: 2,000 mcg Documented by: [id number] Ondansetron HCl (Zofran) Confirm Administered Dose 4 mg .ROUTE .STK-MED ONE Stop: 10/18/18 11:40 Last Admin: 10/18/18 11:43 Dose: 4 mg Documented by: [id number] Potassium Chloride (Klor-Con M20) 40 meq PO NOW STA Stop: 10/18/18 14:56 Last Admin: 10/18/18 16:23 Dose: 40 meq Documented by: [id number] Sertraline HCl (Zoloft) 50 mg PO BID [facility] Stop: 11/17/18 20:59 Last Admin: 10/18/18 20:14 Dose: 50 mg Documented by: [id number] Valacyclovir HCl (Valtrex) 500 mg PO DAILY [facility] Stop: 11/18/18 08:59 Last Admin: 10/18/18 20:15 Dose: 500 mg Documented by: [id number] Discharge Plan Visit Data *Final* Discharge Date/Time: 10/18/18 14:15 Chief Complaint: Chest Pain ED Provider: Himanshu Shearer Discharge Problem: Acute non-ST elevation myocardial infarction (NSTEMI) Patient Disposition: Still a Patient Discharge Instructions Interventions: ED Discharge Assessment Last Done: 10/18/18 14:15 The scribe's documentation has been prepared under my direction and personally reviewed by me in its entirety. I confirm that the note above accurately reflects all work, treatment, procedures, and medical decision making performed by me.
--- NOTE | 2018-10-19 09:35 | Cardiology Progress Note ---
Date of Service October 19, 2018 Assessment & Plan (1) NSTEMI (non-ST elevated myocardial infarction): Patient did have evidence of cardiac ischemia based on her biomarkers. However, there did not appear to be any evidence of acute coronary syndrome on angiography. Her CT report did not suggest a pulmonary embolus and there is no evidence of aortic dissection. She does have a history of variant angina, but she continued to have chest discomfort during her catheterization was suggest the symptoms themselves are not related to coronary spasm. Her EKG was also not characteristic of coronary spasm at the time of her presentation. Her biomarkers are trending down worse. It is possible that her event occurred prior to evaluation in the emergency room. The daily aspirin may be of some value given the evidence of myocardial injury, otherwise I am not sure any additional therapy is warranted. (2) Hypokalemia: Resolved (3) Chest pain: With her current symptoms are highly reproducible on examination. She has pretty significant tenderness along the spinal column between her shoulder blades and at the very discrete location left lateral to the sternum in the left upper chest. It is very possible that she has an inflammatory process or musculoskeletal problem causing her current symptoms. I suspect this can be treated conservatively. Subjective This morning the patient complains primarily of back discomfort. This appears to be fairly focal in nature along the spinal column between the shoulder blades. He is quite tender to palpation. She also has some continued discomfort in a very discrete spot just left of the sternum in the upper chest. This appears to be improved versus yesterday. She is not describe breathing difficulty. She claims to have slept well. She has good appetite this morning without complaints of dysphagia, nausea or odynophagia. Review of Systems Review of Systems: Per HPI Physical Exam Physical Exam: She is alert and oriented x3. Mood affect appear normal. She answered all questions appropriately. HEENT: Sclerae are anicteric. Pupils are equal and reactive to light and accommodation. Extraocular movements were intact. Neuro: Cranial nerves intact Lungs: Lungs are clear to auscultation bilaterally. There are no rales wheezes or rhonchi. She has normal respiratory effort without use of accessory muscles. There is normal pulmonary excursion. Cardiac: The rhythm was regular. S1 and S2 were normal. There are no murmurs on examination. The PMI was not markedly displaced on palpation. Extremities: Patient has bilateral radial pulses that are equal in intensity. There is no evidence cyanosis or clubbing. Only mild bruising along the radial artery on the right wrist. Not painful to palpation. No significant swelling or hematoma. There was no evidence of significant peripheral edema bilaterally. Skin: There are no rashes noted on examination today. Results & Data Vital Signs (Past 12 Hours) Vital Signs Temp Pulse Resp BP Pulse Ox 10/19/18 06:54 37.0 C 73 16 124/76 95 10/19/18 02:59 36.7 C 64 16 106/66 94 10/19/18 00:15 36.5 C 69 16 101/62 95 Laboratory Results Abnormal Lab Results 10/18/18 10/18/18 10/18/18 09:40 09:40 09:40 WBC 8.77 RBC 4.07 L Hgb 14.2 Hct 41.3 MCV 101.5 H MCH 34.9 H MCHC 34.4 RDW Std Deviation 51.1 H RDW Coeff of [place] 13.7 Plt Count 329 MPV 11.0 H Immature Gran % (Auto) 0.2 Neut % (Auto) 74.4 Lymph % (Auto) 17.0 [place] % (Auto) 5.0 Eos % (Auto) 2.1 Baso % (Auto) 1.3 Immature Gran # (Auto) 0.02 Neut # (Auto) 6.53 H Lymph # (Auto) 1.49 [place] # (Auto) 0.44 Eos # (Auto) 0.18 Baso # (Auto) 0.11 PT INR Sodium 142 Potassium 3.2 L Chloride 112 H Carbon Dioxide 20 L Anion Gap 10.0 BUN 12 Creatinine 1.22 H Est Cr Clr Drug Dosing 36.5 Est GFR ( Amer) 52.7 Est GFR (Non-Af Amer) 45.5 BUN/Creatinine Ratio 9.8 L Glucose 117 H Calcium 8.8 Magnesium 2.2 Total Bilirubin 0.4 Direct Bilirubin 0.1 AST 19 ALT 17 Alkaline Phosphatase 81 Troponin I 1.800 H* Total Protein 7.6 Albumin 4.0 Triglycerides Cholesterol LDL Cholesterol, Calc VLDL Cholesterol, Calc HDL Cholesterol Cholesterol/HDL Ratio Lipase 204 10/18/18 10/18/18 10/18/18 13:06 15:30 21:31 WBC RBC Hgb Hct MCV MCH MCHC RDW Std Deviation RDW Coeff of [place] Plt Count MPV Immature Gran % (Auto) Neut % (Auto) Lymph % (Auto) [place] % (Auto) Eos % (Auto) Baso % (Auto) Immature Gran # (Auto) Neut # (Auto) Lymph # (Auto) [place] # (Auto) Eos # (Auto) Baso # (Auto) PT 10.6 INR 1.0 Sodium Potassium Chloride Carbon Dioxide Anion Gap BUN Creatinine Est Cr Clr Drug Dosing Est GFR ( Amer) Est GFR (Non-Af Amer) BUN/Creatinine Ratio Glucose Calcium Magnesium Total Bilirubin Direct Bilirubin AST ALT Alkaline Phosphatase Troponin I 1.610 H* 1.440 H* Total Protein Albumin Triglycerides Cholesterol LDL Cholesterol, Calc VLDL Cholesterol, Calc HDL Cholesterol Cholesterol/HDL Ratio Lipase 10/19/18 10/19/18 08:09 08:09 WBC 11.45 H RBC 3.72 L Hgb 12.7 Hct 38.0 MCV 102.2 H MCH 34.1 H MCHC 33.4 RDW Std Deviation 51.6 H RDW Coeff of [place] 13.8 Plt Count 265 MPV 10.5 H Immature Gran % (Auto) Neut % (Auto) Lymph % (Auto) [place] % (Auto) Eos % (Auto) Baso % (Auto) Immature Gran # (Auto) Neut # (Auto) Lymph # (Auto) [place] # (Auto) Eos # (Auto) Baso # (Auto) PT INR Sodium 144 Potassium 3.9 D Chloride 116 H Carbon Dioxide 20 L Anion Gap 8.0 BUN 19 H D Creatinine 1.04 Est Cr Clr Drug Dosing 42.8 Est GFR ( Amer) 63.9 Est GFR (Non-Af Amer) 55.2 BUN/Creatinine Ratio 17.8 Glucose 100 H Calcium 8.2 L Magnesium Total Bilirubin Direct Bilirubin AST ALT Alkaline Phosphatase Troponin I Total Protein Albumin Triglycerides 81 Cholesterol 196 LDL Cholesterol, Calc 119 VLDL Cholesterol, Calc 16 HDL Cholesterol 61 Cholesterol/HDL Ratio 3 Lipase Diagnostic Findings Cardiac catheterization performed yesterday revealed normal coronary arteries without obstructive coronary disease, spasm or evidence of acute coronary syndrome Echocardiogram performed yesterday revealed preserved LV systolic function with out regional wall motion abnormalities and only mild valvular heart disease Chest CT did not reveal any evidence of aortic dissection there is no evidence of pulmonary embolus. ECG Additional Comments: Normal sinus rhythm. No arrhythmias on telemetry
[2018-10-19] MEDS: LORazepam 0.5 MG TAB PO PRN (11:09)
--- NOTE | 2018-10-19 11:15 | Hospitalist Progress Note ---
Date of Service October 19, 2018 Assessment & Plan (1) NSTEMI (non-ST elevated myocardial infarction): Pt with hx angina presented with c/o sternal CP started this morning with associated nausea, diaphoresis, SOB. Had 2 SL nitro prior to arrival with minimal relief. Was given aspirin by EMS. While in the ER chest pain radiated to left shoulder. EKG: Sinus rhythm with inverted T waves septal, anterior, lateral which is changed compared to EKG September 12, 2013 Cardiac enzyme was noted to be 1.8 at presentation and subsequently went down to 1.4 CTA was negative for any dissection Cardiac cath unremarkable: Right-dominant coronary system Normal left ventricular end-diastolic pressures No evidence of aortic stenosis Normal coronary arteries without obstructive coronary disease No evidence of acute coronary syndrome or spasm Echo has been unremarkable too: Left ventricular systolic function is normal, grade 1 diastolic dysfunction, mild MR, RV systolic function is normal Appreciate cardiology input and recommendation We will continue amlodipine and aspirin but no beta-annemarie for possible coronary spasm Could have musculoskeletal pain and will try Tylenol (2) Hypokalemia: K: 3.2 -replace and monitor - EYES: Pupils round equal and react to light, extraocular movements full, no injection. (3) CKD (chronic kidney disease), stage III: Cr: 1.2 (baseline 1.1-1.2) -Monitor renal functions -Avoid nephrotoxic agents when possible -Creatinine is normal (4) Anxiety: (5) Depression: -Continue sertraline, bupropion -Continue Ativan as needed (6) Migraine: Denies current headache -Continue Topamax (7) Hypothyroidism: TSH: 3.1 on 05/20/2018 -Continue levothyroxine (8) Eosinophilic fasciitis: -Continue H2 annemarie DVT Prophylaxis -On heparin drip Full code as per discussion with pt Follows with Dr Rodger Tobar for routine care Subjective 10/19 The patient was seen and examined in telemetry unit She has had pain in between shoulder blades this morning associated with headache During my examination the pain no headache are almost gone-EKG did not show any change Denies any other symptoms Review of Systems Review of Systems: All systems reviewed and are unremarkable except as noted below Cardiovascular: Additional Comments: Pain between shoulder blades as before which resolved Physical Exam Physical Exam: Looked anxious but no apparent distress at rest Constitutional: well developed, well nourished and + ill appearing; no acute distress Eyes: PERRL, conjunctivae normal, anicteric sclerae ENMT: external ear and nose normal, oropharynx normal Mallampati Class: III Neck: trachea midline, no thyromegaly Respiratory: normal respiratory effort Auscultation: lungs clear to auscultation bilaterally Cardiovascular: Rate/Rhythm: regular rate and regular rhythm Chest (Breasts): Additional Comments: Localized tenderness noted over precordial area and also lower part of the neck at the back Musculoskeletal: No acute arthritis in any of the joints Lymphatic: no cervical or axillary lymphadenopathy Results & Data Vital Signs (Past 12 Hours) Vital Signs Temp Pulse Pulse Resp BP Pulse Ox 10/19/18 08:00 67 10/19/18 06:54 37.0 C 73 16 124/76 95 10/19/18 02:59 36.7 C 64 16 106/66 94 10/19/18 00:15 36.5 C 69 16 101/62 95 Laboratory Results Short CBC 10/19/18 Range/Units 08:09 WBC 11.45 H (4.8-10.8) K/uL Hgb 12.7 (12.0-16.0) g/dL Hct 38.0 (37-47) % Plt Count 265 (130-400) K/uL BMP 10/18/18 10/19/18 09:40 08:09 Sodium 142 144 Potassium 3.2 L 3.9 D Chloride 112 H 116 H Carbon Dioxide 20 L 20 L BUN 12 19 H D Creatinine 1.22 H 1.04 Glucose 117 H 100 H Calcium 8.8 8.2 L Cardiac Enzymes 10/18/18 10/18/18 10/18/18 Range/Units 09:40 15:30 21:31 Troponin I 1.800 H* 1.610 H* 1.440 H* (0-0.045) ng/ml Liver Function 10/18/18 Range/Units 09:40 Total Bilirubin 0.4 (0.2-1) mg/dl Direct Bilirubin 0.1 (0-0.2) mg/dl AST 19 (15-37) U/L ALT 17 (12-78) U/L Alkaline Phosphatase 81 (45-117) U/L Albumin 4.0 (3.4-5.0) gm/dl Medications Administered Current Inpatient Medications Acetaminophen (Tylenol) 650 mg PO Q4H PRN PRN Reason: Pain Stop: 11/18/18 09:16 Amlodipine Besylate (Norvasc) 2.5 mg PO DAILY@2099 [facility] Stop: 11/18/18 08:59 Aspirin (Ecotrin Ectab) 81 mg PO QAM [facility] Stop: 11/18/18 08:59 Last Admin: 10/19/18 08:09 Dose: 81 mg Documented by: Bupropion HCl (Wellbutrin-Xl) 150 mg PO DAILY [facility] Stop: 11/18/18 08:59 Last Admin: 10/19/18 08:09 Dose: 150 mg Documented by: Docusate Sodium (Colace) 200 mg PO [facility] Stop: 11/17/18 20:59 Last Admin: 10/18/18 20:14 Dose: Not Given Documented by: Famotidine (Pepcid) 40 mg PO QAM [facility] Stop: 11/18/18 08:59 Last Admin: 10/19/18 10:04 Dose: Not Given Documented by: Ioversol (Optiray 320 125ml) 118 ml IV ONCE PRN PRN Reason: Interaction Checking Stop: 10/22/18 14:59 Last Admin: 10/18/18 15:01 Dose: 118 ml Documented by: Levothyroxine Sodium (Synthroid) 88 mcg PO DAILYBB [facility] Stop: 11/18/18 06:29 Last Admin: 10/19/18 05:37 Dose: 88 mcg Documented by: Lorazepam (Ativan) 0.5 mg PO BID PRN PRN Reason: anxiety Stop: 11/17/18 15:16 Last Admin: 10/18/18 20:13 Dose: 0.5 mg Documented by: Pantoprazole Sodium (Protonix) 40 mg PO DAILY [facility] Stop: 11/18/18 08:59 Last Admin: 10/19/18 08:09 Dose: 40 mg Documented by: Sertraline HCl (Zoloft) 100 mg PO HS [facility] Stop: 11/17/18 20:59 Last Admin: 10/19/18 08:12 Dose: 100 mg Documented by: Topiramate (Topamax) 100 mg PO BID [facility] Stop: 11/17/18 20:59 Last Admin: 10/19/18 08:09 Dose: 100 mg Documented by: Valacyclovir HCl (Valtrex) 500 mg PO DAILY@2100 [facility] Stop: 11/18/18 08:59
[2018-10-19] MEDS ORDERED: MoRPHine SULFATE 2 MG/ML CARP IV STA (11:17)
[2018-10-19] MEDS ORDERED: ONDANSETRON INJ 2 MG/ML 2 ML VIAL IV PRN (11:22)
[2018-10-19] MEDS: NITROGLYCERIN SL 0.4 MG/TAB TAB SL PRN ×3 (11:53→18:05)
[2018-10-19] MEDS ORDERED: Nursing to Pharmacy Communication ONE ×2 (15:27→18:07)
[2018-10-19] MEDS: DOCUSATE SODIUM 100 MG CAP PO SCH (20:43)
[2018-10-20] MEDS: NITROGLYCERIN SL 0.4 MG/TAB TAB SL PRN (00:38)
[2018-10-20] MEDS: LORazepam 0.5 MG TAB PO PRN ×2 (00:38→07:56)
[2018-10-20] MEDS: LEVOTHYROXINE SODIUM 88 MCG TABLET PO SCH (06:21)
[2018-10-20 07:27] LABS: Basophils # (auto) 0.07 K/uL (0-0.2); Basophils % (auto) 0.8 %; Eosinophils # (auto) 0.22 K/uL (0-0.5); Eosinophils % (auto) 2.5 %; Hematocrit (blood only) 37.9 % (37-47); Hemoglobin 12.8 g/dL (12.0-16.0); Immature Granulocytes # (auto) 0.01 K/uL (0.00-0.02); Immature Granulocytes % (auto) 0.1 %; Lymphocytes # (auto) 1.99 K/uL (1.2-3.4); Lymphocytes % (auto) 22.6 %; Mean Corpuscular Hgb Conc 33.8 g/dL (32-36); Mean Corpuscular Volume 102.7 fL (80-100); Mean Platelet Volume 10.2 fL (7.4-10.4); Monocytes # (auto) 0.88 K/uL (0.11-0.59); Neutrophils # (auto) 5.63 K/uL (1.4-6.5); Platelet Count 246 K/uL (130-400); RDW Standard Deviation 52.3 fL (36.4-46.3); Red Blood Count 3.69 M/uL (4.2-5.4)
[2018-10-20] MEDS: PANTOprazole 40 MG TAB PO SCH (07:52)
[2018-10-20] MEDS: BuPROPion XL 150 MG TABCR PO SCH (07:52)
[2018-10-20] MEDS: ASPIRIN 81 MG ECTAB PO SCH (07:52)
[2018-10-20] MEDS: TOPIRAMATE 100 MG TAB PO SCH (07:52)
[2018-10-20 07:54] LABS: Calcium 8.3 mg/dl (8.5-10.1); Creatinine Clr Calc Pharmacy 44.5 ml/min; Est GFR (Non-African American) 57.8; Magnesium 2.2 mg/dl (1.8-2.4); Potassium 3.9 mmol/L (3.5-5.1)
[2018-10-20] MEDS ORDERED: CIMETIDINE 200 MG PO SCH ×2 (09:00→21:00)
[2018-10-20] MEDS ORDERED: ASPIRIN 81 MG ECTAB PO SCH (09:00)
--- NOTE | 2018-10-20 14:25 | Hospitalist Progress Note ---
Date of Service October 20, 2018 Assessment & Plan (1) NSTEMI (non-ST elevated myocardial infarction): Pt with hx angina presented with c/o sternal CP started this morning with associated nausea, diaphoresis, SOB. Had 2 SL nitro prior to arrival with minimal relief. Was given aspirin by EMS. While in the ER chest pain radiated to left shoulder. EKG: Sinus rhythm with inverted T waves septal, anterior, lateral which is changed compared to EKG September 12, 2013 Cardiac enzyme was noted to be 1.8 at presentation and subsequently went down to 1.4 CTA was negative for any dissection Cardiac cath unremarkable: Right-dominant coronary system Normal left ventricular end-diastolic pressures No evidence of aortic stenosis Normal coronary arteries without obstructive coronary disease No evidence of acute coronary syndrome or spasm Echo has been unremarkable too: Left ventricular systolic function is normal, grade 1 diastolic dysfunction, mild MR, RV systolic function is normal Appreciate cardiology input and recommendation We will continue amlodipine and aspirin but no beta-annemarie for possible coronary spasm Has had occasional chest pain while in the hospital without any EKG abnormality Was seen by photoflash powder mixer Discussed with photoflash powder mixer this morning and the patient can be discharged home today Could have musculoskeletal pain and will try Tylenol (2) Hypokalemia: K: 3.2 -replace and monitor -Electrolytes are normal (3) CKD (chronic kidney disease), stage III: Cr: 1.2 (baseline 1.1-1.2) -Acute kidney injury seems to be secondary to dehydration -Monitor renal functions -Avoid nephrotoxic agents when possible -Creatinine is normal (4) Anxiety: (5) Depression: -Continue sertraline, bupropion -Continue Ativan as needed (6) Migraine: Denies current headache -Continue Topamax (7) Hypothyroidism: TSH: 3.1 on 05/20/2018 -Continue levothyroxine (8) Eosinophilic fasciitis: -Continue H2 annemarie DVT Prophylaxis -On heparin drip Full code as per discussion with pt Follows with Dr Rodger Tobar for routine care Will discharge home today Subjective 10/19 The patient was seen and examined in telemetry unit She has had pain in between shoulder blades this morning associated with headache During my examination the pain no headache are almost gone-EKG did not show any change Denies any other symptoms 10/20 Patient was seen and examined in telemetry unit She has been complaining some chest pain even this morning without any associated symptoms Seems to be noncardiac and could be musculoskeletal No EKG abnormality noted Review of Systems Review of Systems: All systems reviewed and are unremarkable except as noted below Cardiovascular: + chest pain (At rest, central upper chest, no associated symptoms) Gastrointestinal: no abdominal pain and no bloating Physical Exam Physical Exam: No apparent distress at rest Constitutional: well developed, well nourished and + ill appearing; no acute distress Eyes: PERRL, conjunctivae normal, anicteric sclerae ENMT: external ear and nose normal, oropharynx normal Mallampati Class: III Neck: trachea midline, no thyromegaly Respiratory: normal respiratory effort Auscultation: lungs clear to auscultation bilaterally Cardiovascular: Rate/Rhythm: regular rate and regular rhythm Gastrointestinal (Abdomen): Inspection/Auscultation: abdomen normal to inspection Percussion/Palpation: abdomen soft Musculoskeletal: No acute arthritis in any joint Psychiatric: A+Ox3, euthymic affect Lymphatic: no cervical or axillary lymphadenopathy Results & Data Vital Signs (Past 12 Hours) Vital Signs Temp Pulse Resp BP Pulse Ox 10/20/18 11:12 36.9 C 72 20 137/87 98 10/20/18 09:05 36.9 C 72 20 123/76 97 10/20/18 07:05 37.0 C 69 17 133/79 96 10/20/18 03:36 36.5 C 66 17 120/73 96 Laboratory Results Short CBC 10/20/18 Range/Units 07:16 WBC 8.80 (4.8-10.8) K/uL Hgb 12.8 (12.0-16.0) g/dL Hct 37.9 (37-47) % Plt Count 246 (130-400) K/uL [facility] 10/20/18 07:16 Sodium 144 Potassium 3.9 Chloride 115 H Carbon Dioxide 23 BUN 14 Creatinine 1.00 Glucose 92 Calcium 8.3 L Medications Administered Current Inpatient Medications Acetaminophen (Tylenol) 650 mg PO Q4H PRN PRN Reason: Pain Stop: 11/18/18 09:16 Amlodipine Besylate (Norvasc) 2.5 mg PO DAILY@2100 [facility] Stop: 11/18/18 08:59 Last Admin: 10/19/18 20:44 Dose: 2.5 mg Documented by: Aspirin (Ecotrin Ectab) 81 mg PO QAM [facility] Stop: 11/18/18 08:59 Last Admin: 10/20/18 07:52 Dose: 81 mg Documented by: Bupropion HCl (Wellbutrin-Xl) 150 mg PO DAILY [facility] Stop: 11/18/18 08:59 Last Admin: 10/20/18 07:52 Dose: 150 mg Documented by: Docusate Sodium (Colace) 200 mg PO HS [facility] Stop: 11/17/18 20:59 Last Admin: 10/19/18 20:43 Dose: 200 mg Documented by: Ioversol (Optiray 320 125ml) 118 ml IV ONCE PRN PRN Reason: Interaction Checking Stop: 10/22/18 14:59 Last Admin: 10/18/18 15:01 Dose: 118 ml Documented by: [facility]: 11/18/18 06:29 Last Admin: 10/20/18 06:21 Dose: 88 mcg Documented by: Lorazepam (Ativan) 0.5 mg PO BID PRN PRN Reason: anxiety Stop: 11/17/18 15:16 Last Admin: 10/20/18 07:56 Dose: 0.5 mg Documented by: Nitroglycerin (Nitrostat) 0.4 mg SL PRN PRN PRN Reason: Chest Pain Stop: 11/18/18 11:46 Last Admin: 10/20/18 00:38 Dose: 0.4 mg Documented by: Nima Hb 200 Mg: Non-Formulary Patient's Own Med 1 ea PO TID [facility] Stop: 11/19/18 08:59 Last Admin: 10/20/18 13:20 Dose: 2 tabs Documented by: Ondansetron HCl (Zofran) 4 mg IV Q6H PRN PRN Reason: Nausea Stop: 11/18/18 11:21 Last Admin: 10/19/18 11:35 Dose: 4 mg Documented by: Pantoprazole Sodium (Protonix) 40 mg PO DAILY [facility] Stop: 11/18/18 08:59 Last Admin: 10/20/18 07:52 Dose: 40 mg Documented by: Sertraline HCl (Zoloft) 100 mg PO HS [facility] Stop: 11/17/18 20:59 Last Admin: 10/19/18 08:12 Dose: 100 mg Documented by: Topiramate (Topamax) 100 mg PO BID [facility] Stop: 11/17/18 20:59 Last Admin: 10/20/18 07:52 Dose: 100 mg Documented by: Valacyclovir HCl (Valtrex) 500 mg PO DAILY@2100 [facility] Stop: 11/18/18 08:59 Last Admin: 10/19/18 20:43 Dose: 500 mg Documented by:
--- NOTE | 2018-10-21 10:36 | Discharge Summary ---
Date of Service October 21, 2018 Admission HPI Per Admitting Provider Pt is 68 y/o F with PMH angina, CKD III, hypothyroidism, anxiety, depression, migraine, eosinophilic fasciitis presented to ER with complaint of chest pain. Patient states this morning around 6:30 started with sternal chest heaviness. Patient states symptoms seem to ease up and she started trying to make breakfast and CP occurred again and described pain between shoulder blades with associated nausea and shortness of breath. Reports was feeling anxious and had some mild diaphoresis. Patient took 1 sublingual nitroglycerin at home without relief and the second was administered upon EMS arrival. Reported was given 4 baby aspirin by EMS. Patient states while in the ER chest pain radiated to left shoulder. In ER patient started on Nitropaste and given morphine with some decrease chest pain. Patient states morphine made her feel little dizzy. Denies fever/chills, V/D/C, DUONG, syncope, vision changes, orthopnea, palpitations, cough, sore throat, choking, otalgia, rhinorrhea, abdominal pain, paresthesias, weakness, extremity weakness, increased extremity edema, rashes, urinary symptoms. In ER EKG: Sinus rhythm with inverted T waves septal, anterior, lateral which is changed compared to EKG September 12, 2013. Dr. Zeng-cardiology ordered bedside echo and plans to take patient to [facility]. In ER patient was started on heparin. She was also given Benadryl and Solu-Medrol prior to cath. History cardiac cath 06/2010: Normal coronary arteries Admission Exam Per Admitting Provider Physical Exam: General: Mildly anxious appearing, WDWN Head: normocephalic, atraumatic Eyes: PERRL, EOM's intact, conjunctiva non-injected, anicteric ENT: normal inspection external ears, nose, mucous membranes moist Neck: supple, trachea midline Lungs: clear, no respiratory distress, no wheezing/rhonchi/rales CV: RRR, no murmur, chest wall without rashes and non-tender to palpation, no pretibial edema Abd: normal BS, soft, non-tender Ext: no cyanosis, no calf tenderness Neuro: A&O x 3, no focal deficits noted, anxious appearing Skin: warm, dry Principal Diagnosis NSTEMI. Cardiac cath: nonobstructive coronaries Discharge Exam Constitutional well developed, well nourished and + ill appearing; no acute distress Eyes PERRL, conjunctivae normal, anicteric sclerae ENMT external ear and nose normal, oropharynx normal Mallampati Class: III Neck trachea midline, no thyromegaly Respiratory normal respiratory effort Auscultation: lungs clear to auscultation bilaterally Cardiovascular Rate/Rhythm: regular rate and regular rhythm Gastrointestinal (Abdomen) Inspection/Auscultation: abdomen normal to inspection Percussion/Palpation: abdomen soft Psychiatric A+Ox3, euthymic affect Lymphatic no cervical or axillary lymphadenopathy Discharge Data Allergies Allergy/AdvReac Type Severity Reaction Status Date / Time Iodinated Contrast- Oral and Allergy Severe anaphylaxis Unverified 10/18/18 11:48 IV Dye penicillamine Allergy Unknown RASH, Verified 10/18/18 11:48 lupus-like rx Sulfa (Sulfonamide Allergy Unknown UNKNOWN Verified 10/18/18 11:48 Antibiotics) diflunisal AdvReac Intermediate KIDNEY Unverified 10/18/18 11:48 FAILURE NSAIDS (Non-Steroidal AdvReac Intermediate kidney Unverified 10/18/18 11:48 Anti-Inflamma failure gabapentin AdvReac Unknown hallucinati Unverified 10/18/18 11:48 ons Opioid Analgesics AdvReac Unknown gi Uncoded 10/18/18 11:48 intolerance Consultations 10/18/18 12:08 ED Decision to Admit Stat 10/18/18 15:17 Consult Cardiology Routine Consult Case Management - Discharge Planning Routine Procedures Performed Operation Date: 10/18/18 14:00 Actual Procedures p Cardiac Heart Alert - Darrick Zeng MD p Cath, Left with Cors and Vent - Darrick Zeng MD s Cineradiography w/Routine Exam - Darrick Zeng MD Ordered Studies 10/18/18 13:56 CL Cath Imgs for PACS use only Stat 10/18/18 14:45 CT angio chest dissec wo/w con Stat Hospital Course (1) NSTEMI (non-ST elevated myocardial infarction): Pt with hx angina presented with c/o sternal CP started this morning with associated nausea, diaphoresis, SOB. Had 2 SL nitro prior to arrival with minimal relief. Was given aspirin by EMS. While in the ER chest pain radiated to left shoulder. EKG: Sinus rhythm with inverted T waves septal, anterior, lateral which is changed compared to EKG September 12, 2013 Cardiac enzyme was noted to be 1.8 at presentation and subsequently went down to 1.4 CTA was negative for any dissection Cardiac cath unremarkable: Right-dominant coronary system Normal left ventricular end-diastolic pressures No evidence of aortic stenosis Normal coronary arteries without obstructive coronary disease No evidence of acute coronary syndrome or spasm Echo has been unremarkable too: Left ventricular systolic function is normal, grade 1 diastolic dysfunction, mild MR, RV systolic function is normal Appreciate cardiology input and recommendation We will continue amlodipine and aspirin but no beta-annemarie for possible coronary spasm Has had occasional chest pain while in the hospital without any EKG abnormality 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 Discussed with supervisor poultry farm this morning and the patient can be discharged home today Could have musculoskeletal pain and will try Tylenol (2) Hypokalemia: K: 3.2 -replace and monitor -Electrolytes are normal (3) CKD (chronic kidney disease), stage III: Cr: 1.2 (baseline 1.1-1.2) -Acute kidney injury seems to be secondary to dehydration -Monitor renal functions -Avoid nephrotoxic agents when possible -Creatinine is normal (4) Anxiety: (5) Depression: -Continue sertraline, bupropion -Continue Ativan as needed (6) Migraine: Denies current headache -Continue Topamax (7) Hypothyroidism: TSH: 3.1 on 05/20/2018 -Continue levothyroxine (8) Eosinophilic fasciitis: -Continue H2 annemarie DVT Prophylaxis -On heparin drip Full code as per discussion with pt Follows with Dr Rodger Tobar for routine care Will discharge home today Total Time Total Time Spent Total Time Spent (In Minutes): 35 minutes Total Time Includes: Examination of the Patient, Discharge Planning, Medication Reconciliation and Communication With Other Providers Discharge Plan Discharge Items Patient Disposition: Home - Self-Care Reason For Visit: NSTEMI Discharge Diagnosis: NSTEMI. Cardiac cath: nonobstructive coronaries Condition: Good Discharge Goals: Decrease discomfort, Increase independence and Improve nutritional status Activity: Resume your previous activity Non-emergency contact: Primary Care Provider Call non-emergency contact if: you have any medication questions and your symptoms worsen Follow-up/Referrals: Rodger Tobar DO [Primary Care Provider] - 10/23/18 10:45 am Diet: Heart Healthy Addtl Provider Instructions: Please make an appointment with your supervisor poultry farm in 2 weeks. No change in your medications. Prescriptions: Continued nitroglycerin 0.4 mg Tablet, Sublingual 0.4 mg UT q 5min x 3 Qty: 0 RF: 0 valacyclovir 500 mg Tablet 500 mg PO DAILY Qty: 0 RF: 0 amlodipine 2.5 mg Tablet 2.5 mg PO DAILY Qty: 0 RF: 0 cyclobenzaprine 5 mg Tablet 10 mg PO DIRECTED PRN (Reason: Pain) Qty: 0 RF: 0 calcium phosphate-vitamin D3 250-400 mg-unit Tablet,Chewable 1 tab PO TID Qty: 0 RF: 0 sumatriptan succinate [Imitrex] 100 mg Tablet 50 mg PO DIRECTED PRN (Reason: Migraine Headache) RF: 0 cyanocobalamin (vitamin B-12) [Vitamin B-12] 1,000 mcg Tablet 1,000 mg PO DAILY RF: 0 glucosamine sulfate 500 mg Capsule 500 mg PO TID RF: 0 vitamin B complex Tablet 1 tab PO DAILY RF: 0 topiramate 100 mg Tablet 100 mg PO BID RF: 0 vitamin E 400 unit Capsule 400 unit PO DAILY RF: 0 vitamins-lipotropics Tablet 1 tab PO TID RF: 0 cyclobenzaprine 5 mg tablet 5 mg PO DAILY PRN (Reason: muscle spasm) RF: 0 docusate sodium 100 mg Capsule 200 mg PO HS RF: 0 cimetidine 400 mg Tablet 400 mg PO TID RF: 0 lorazepam [Ativan] 0.5 mg tablet 0.5 mg PO BID PRN (Reason: anxiety) Qty: 14 RF: 0 pantoprazole 20 mg Tablet,Delayed Release (Dr/Ec) 20 mg PO DAILY RF: 0 sertraline 50 mg Tablet 50 mg PO BID RF: 0 levothyroxine 88 mcg Tablet 88 mcg PO DAILY RF: 0 bupropion HCl 150 mg tablet extended release 24 hr 150 mg PO DAILY RF: 0 Stand-Alone Forms: Call Back Authorization, Pending Sale To [facility] Discharge Orders: Discharge Order (Routine); Ordered 10/20/18 Ordered By: Hugo Odom Admission Data Admit Date/Time: 10/18/18 15:10 Attending Provider: Hugo Odom Admit Provider: Hugo Odom Primary Care Provider: Rodger Tobar Other Providers: Darrick Zeng ; Rey Pastor ; Darrick Barton Service: Telemetry Other Interventions: Discharge Summary Assessment (RN) Last Done: 10/20/18 15:26 DC Date/Time DO NOT enter until pt leaves facility: 10/20/18 16:29
== END 2018-10-20 16:29 | disposition home or self-care (01) | DRG 282 ==
LOC: ED 09:47 → 2S 14:15 → CC 14:15 → SUATTDRO 15:10 → 2S 15:10
DX: Z88.8 Allergy status to other drugs, medicaments and biological substances; M35.4 Diffuse (eosinophilic) fasciitis; F41.9 Anxiety disorder, unspecified; Z88.1 Allergy status to other antibiotic agents; E87.6 Hypokalemia; G43.909 Migraine, unspecified, not intractable, without status migrainosus; Z88.2 Allergy status to sulfonamides; N18.3 Chronic kidney disease, stage 3 (moderate); E03.9 Hypothyroidism, unspecified; I21.4 Non-ST elevation (NSTEMI) myocardial infarction

== ENCOUNTER 2020-10-12 20:41 | Inpatient (IN) ==
[2020-10-12] MEDS ORDERED: ASPIRIN CHEW 324 MG PO STA ×2 (20:47→23:20)
[2020-10-12 21:25] LABS: Basophils % (auto) 1.3 %; Eosinophils # (auto) 0.16 K/uL (0-0.5); Eosinophils % (auto) 2.1 %; Hematocrit (blood only) 40.8 % (37-47); Hemoglobin 13.5 g/dL (12.0-16.0); Immature Granulocytes # (auto) 0.01 K/uL (0.00-0.02); Immature Granulocytes % (auto) 0.1 %; Lymphocytes # (auto) 2.92 K/uL (1.2-3.4); Lymphocytes % (auto) 39.2 %; Mean Corpuscular Hemoglobin 33.3 pg (25-34); Mean Corpuscular Hgb Conc 33.1 g/dL (32-36); Mean Corpuscular Volume 100.7 fL (80-100); Mean Platelet Volume 10.7 fL (7.4-10.4); Monocytes # (auto) 0.74 K/uL (0.11-0.59); Monocytes % (auto) 9.9 %; Neutrophils # (auto) 3.52 K/uL (1.4-6.5); Neutrophils % (auto) 47.4 %; Platelet Count 281 K/uL (130-400); RDW Coefficient of Variation 13.6 % (11.5-14.5); RDW Standard Deviation 49.9 fL (36.4-46.3); Red Blood Count 4.05 M/uL (4.2-5.4); White Blood Count 7.45 K/uL (4.8-10.8)
[2020-10-12 21:36] LABS: BUN Creatinine Ratio 16.5 (10-20); Calcium 8.8 mg/dl (8.5-10.1); Creatinine Clr Calc Pharmacy 34.6 ml/min; Est GFR (African American) 50.5 ml/min; Est GFR (Non-African American) 43.5 ml/min; Potassium 3.7 mmol/L (3.5-5.1)
[2020-10-12 21:42] LABS: Troponin I 1.88 ng/ml (0-0.045)
[2020-10-12] MEDS ORDERED: Heparin IV Adult Wt-Based Low-Dose WITH Bolus Protocol STA (21:48)
[2020-10-12] MEDS ORDERED: HEPARIN SOD (PORCINE) 1000 UNIT/ML IV ONE (22:03)
[2020-10-12] MEDS ORDERED: HEPARIN SODIUM/DEXTROSE 25,000 UNITS/500 ML BAG IV SCH (22:15)
--- NOTE | 2020-10-12 22:25 | Emergency Department Note ---
History of Present Illness General Chief Complaint: Chest Pain Stated Complaint: CHEST PAIN, ARYTHMIA Time Seen by Provider: 10/12/20 20:47 History of Present Illness Provider Complaint: chest pain Onset (ago): hour(s) 7 Duration: intermittent Onset: during exertion Pain Location: left chest Pain Radiation: LUE Severity: moderate Maximum Pain Intensity: 4 Current Pain Intensity: 0 Relieved By: + nitroglycerin Exacerbated By: + exertion Context: no recent illness, no recent surgery, no recent immobilization, no recent travel, no trauma/injury, no new medications or no history of DVT/PE Associated symptoms: no nausea, no vomiting, no diaphoresis, no dyspnea, no sense of impending doom, no syncope, no palpitations, no fever, no cough or no leg swelling Treatments prior to arrival: nitroglycerin Home Medications Medication Instructions Recorded Confirmed Type glucosamine sulfate 500 mg capsule 500 mg PO TID 03/08/18 09/06/20 History sumatriptan succinate 100 mg 0 mg PO DIRECTED PRN 03/08/18 09/06/20 History tablet (Imitrex) vitamin E 400 unit capsule 400 unit PO QAM 03/08/18 09/06/20 History vitamins-lipotropics tablet 1 tab PO BID 03/08/18 09/06/20 History lorazepam 0.5 mg tablet (Ativan) 0.5 mg PO BID PRN #14 tab 05/24/18 09/06/20 Rx levothyroxine 88 mcg tablet 88 mcg PO QAM 10/18/18 09/06/20 History cholecalciferol (vitamin D3) 2,000 units PO QPM 11/18/18 09/06/20 History valacyclovir 500 mg tablet 500 mg PO HS 11/18/18 09/06/20 History duloxetine 60 mg capsule,delayed 60 mg PO QPM 11/26/18 09/06/20 History release Lactobacillus acidophilus 10 1.75 cell PO QAM 11/28/18 09/06/20 History billion cell capsule (Probiotic) amlodipine 2.5 mg tablet 2.5 mg PO QPM #90 tab 02/08/20 09/06/20 Rx estradiol 1 g VAGINAL .COMPLEX #42.5 g 02/23/20 09/06/20 Rx cyanocobalamin (vitamin B-12) 1,000 mcg PO DAILY 03/08/20 09/06/20 History 1,000 mcg capsule methotrexate sodium 2.5 mg tablet 2.5 mg PO DAILY 03/08/20 09/06/20 History pantoprazole 20 mg tablet,delayed 40 mg PO QAM tab 03/08/20 09/06/20 History release prednisone 5 mg tablet 7.5 mg PO DAILY tab 03/08/20 09/06/20 History nitroglycerin 0.4 mg sublingual See Rx Instructions .ROUTE 04/15/20 09/06/20 Rx tablet .COMPLEX #75 tab cimetidine 400 mg tablet 400 mg PO TID tab 09/06/20 09/06/20 History topiramate 100 mg tablet 50 mg PO BID tab 09/06/20 09/06/20 History zinc sulfate 1 tab PO DAILY 09/06/20 09/06/20 History Allergies Allergy/AdvReac Type Severity Reaction Status Date / Time Iodinated Contrast Media Allergy Severe anaphylaxis Verified 09/06/20 11:26 meloxicam Allergy Intermediate Unresponsiv Verified 09/06/20 11:26 e penicillamine Allergy Unknown RASH, Verified 09/06/20 11:26 lupus-like rx Sulfa (Sulfonamide Allergy Unknown Rash Verified 09/06/20 11:26 Antibiotics) alendronate sodium Allergy Unknown Verified 09/06/20 11:26 diltiazem Allergy Unknown Verified 09/06/20 11:26 hydroxyzine Allergy Nausea Verified 09/06/20 11:26 mirtazapine [From Remeron] Allergy Migraine Verified 09/06/20 11:26 venlafaxine [From Effexor] Allergy Dizziness Verified 09/06/20 11:26 NSAIDS (Non-Steroidal AdvReac Intermediate kidney Verified 09/06/20 11:26 Anti-Inflamma failure gabapentin AdvReac Unknown hallucinati Verified 09/06/20 11:26 ons Cuprimine CAPS Allergy Unknown Uncoded 09/06/20 11:26 Opioid Analgesics AdvReac Unknown gi Uncoded 09/06/20 11:26 intolerance Past Med/Surg History Medical History Anxiety CKD (chronic kidney disease), stage III due to NSAID use- FOLLOWS WITH PCP, DR. 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 History of appendectomy History of cardiac catheterization SEPTEMBER 2018- [facility]- NO STENTS- "EVERYTHING CLEAN PER PATIENT" FOLLOWS WITH DR. JIMENEZ History of colonoscopy Family History Mother Dementia, Onset Age: 100 Other No pertinent family history Social History Smoking Status: Never smoker Second Hand Exposure: No; Hx Alcohol Use: No Hx Substance Use: No Preferred Language: Chilean Communication Ability: Effective Ski Lift Operator Required: No Beliefs That Will Affect Care: None Current Living Situation: Family Feels Safe at Home: Yes Assistive Devices: Glasses Review of Systems A total of 10 systems reviewed and were otherwise negative Physical Exam Vital Signs Vital Signs - 24 hr 10/12/20 20:42 10/12/20 21:30 10/12/20 22:00 Temperature 37.0 C Temperature Source Temporal Artery Scan Pulse Rate 80 66 69 Pulse Rate from SpO2 Sensor 69 68 Respiratory Rate 18 16 14 Respiratory Effort / Characteristics Non-Labored Spontaneous Respiratory Depth Normal Respiratory Pattern Regular Blood Pressure 136/86 135/72 132/81 Blood Pressure Mean 102 93 98 Blood Pressure Position Sitting Pulse Oximetry 95 95 94 Oxygen Delivery Method Room Air Sepsis Recent Fever Within 48 Hours No Sepsis New/Unexplained Change in Mental Status No Sepsis Action Taken by Nursing No Action Required 10/12/20 23:00 10/12/20 23:40 Temperature Temperature Source Pulse Rate 75 73 Pulse Rate from SpO2 Sensor 75 70 Respiratory Rate 22 18 Respiratory Effort / Characteristics Respiratory Depth Respiratory Pattern Blood Pressure 123/72 Blood Pressure Mean 89 Blood Pressure Position Pulse Oximetry 98 96 Oxygen Delivery Method Sepsis Recent Fever Within 48 Hours Sepsis New/Unexplained Change in Mental Status Sepsis Action Taken by Nursing Physical Exam GENERAL: She is oriented to person, place, and time. She appears well-developed and well-nourished. She does not appear distressed. HENT: Exam performed. -Head: Normocephalic and atraumatic. -Right Ear: External ear normal. No mastoid tenderness. -Left Ear: External ear normal. No mastoid tenderness. -Mouth/Throat: The oropharynx is clear and moist. No trismus in the jaw. No dental abscesses or uvula swelling. No oropharyngeal exudate or tonsillar abscesses. EYES: Conjunctivae and EOM are normal. Pupils are equal, round, and reactive to light. Right eye exhibits no discharge. Left eye exhibits no discharge. No scleral icterus. NECK: Normal range of motion. Neck supple. No JVD present. No spinous process tenderness present. No carotid bruit present. No rigidity. No tracheal deviation and normal range of motion present. No Brudzinski's sign and no Kernig's sign noted. CV: Normal rate, regular rhythm, normal heart sounds and intact distal pulses. There is no peripheral edema. Palpable radial pulses bue. PULM/CHEST: Effort normal and breath sounds normal. No respiratory distress. No stridor. She has no wheezes. She has no rales. -Chest Wall: She exhibits no tenderness. ABD: The abdomen is soft. Bowel sounds are normal. She has no distension. No mass is present. There is no tenderness. There is no rebound, no guarding, no Sebastian's sign and no tenderness at McBurney's point. Rovsig negative MUSC/SKEL: Normal range of motion. There is no peripheral edema, tenderness or deformity. LYMPH: No cervical adenopathy. NEURO: She is alert and oriented to person, place, and time. She has normal strength. No cranial nerve deficit or sensory deficit. Coordination and gait normal. GCS eye subscore is 4. GCS verbal subscore is 5. GCS motor subscore is 6. Cerebellar tests wnl. SKIN: Skin is warm and dry. She is not diaphoretic. PSYCH: She has a normal mood and affect. Behavior is normal. Judgment and thought content normal. Course Course 2046: The patient was evaluated in room C7. A complete history and physical exam was performed Cardiac monitoring: An order was placed for continuous cardiac monitoring. The monitor shows a rate of 70 with sinus rhythm 0: Vital signs stable. Labs show an elevated troponin. Chest x-ray negative. Patient will be admitted for NSTEMI and started on heparin. patient will be admitted to the [facility] Hospitalist team Dr. Blue notified. Administered Medications Heparin Sodium/Dextrose (Heparin Sodium/Dextrose) 25,000 units in 500 mls @ 13 mls/hr IV .Q24H BERTRAND; Protocol Stop: 11/11/20 22:14 Last Admin: 10/12/20 22:18 Dose: 650 units/hr, 13 mls/hr Documented by: [id number] Cosigned by: [id number] Discontinued Medications Aspirin (Aspirin Chew 324 Mg) 324 mg PO NOW STA Stop: 10/12/20 20:48 Last Admin: 10/12/20 21:13 Dose: Not Given Documented by: [id number] Aspirin (Aspirin Chew 324 Mg) 324 mg PO NOW STA Stop: 10/12/20 23:21 Last Admin: 10/12/20 23:39 Dose: 324 mg Documented by: [id number] Heparin Sodium (Porcine) (Heparin Sod (Porcine) 1000 Unit/Ml) 1 units IV NOW ONE Stop: 10/12/20 22:04 Last Admin: 10/12/20 22:19 Dose: 4,000 units Documented by: [id number] Cosigned by: [id number] Heparin Sodium/Dextrose (Heparin Iv Adult Wt-Based Low-Dose With Bolus Protocol) 1 ea N/A NOW STA; Protocol Stop: 10/12/20 21:49 Last Admin: 10/12/20 22:19 Dose: Not Given Documented by: [id number] Medical Decision Making Laboratory Data Result diagrams: 10/12/20 21:05 10/12/20 21:05 Labs: Lab Results 10/12/20 10/12/20 10/12/20 Range/Units 21:05 21:05 22:13 WBC 7.45 (4.8-10.8) K/uL RBC 4.05 L (4.2-5.4) M/uL Hgb 13.5 (12.0-16.0) g/dL Hct 40.8 (37-47) % MCV 100.7 H (80-100) fL MCH 33.3 (25-34) pg MCHC 33.1 (32-36) g/dL RDW Std Deviation 49.9 H (36.4-46.3) fL RDW Coeff of Edmar 13.6 (11.5-14.5) % Plt Count 281 (130-400) K/uL MPV 10.7 H (7.4-10.4) fL Immature Gran % (Auto) 0.1 % Neut % (Auto) 47.4 % Lymph % (Auto) 39.2 % [place] % (Auto) 9.9 % Eos % (Auto) 2.1 % Baso % (Auto) 1.3 % Neut # (Auto) 3.52 (1.4-6.5) K/uL Lymph # (Auto) 2.92 (1.2-3.4) K/uL [place] # (Auto) 0.74 H (0.11-0.59) K/uL Eos # (Auto) 0.16 (0-0.5) K/uL Baso # (Auto) 0.10 (0-0.2) K/uL Immature Gran # (Auto) 0.01 (0.00-0.02) K/uL Sodium 144 (136-145) mmol/L Potassium 3.7 (3.5-5.1) mmol/L Chloride 116 H (98-107) mmol/L Carbon Dioxide 23 (21-32) mmol/L Anion Gap 5.0 (3-11) BUN 21 H (7-18) mg/dl Creatinine 1.25 H (0.6-1.2) mg/dl Est Cr Clr Drug Dosing 34.6 ml/min Est GFR ( Amer) 50.5 ml/min Est GFR (Non-Af Amer) 43.5 ml/min BUN/Creatinine Ratio 16.5 (10-20) Glucose 97 (70-99) mg/dl Calcium 8.8 (8.5-10.1) mg/dl Troponin I 1.880 H* (0-0.045) ng/ml Lipase 262 (73-393) U/L COVID-19 Eval Order Covid19 at [facility] SARS-CoV-2 (PCR) (Negative) 10/12/20 Range/Units 22:13 WBC (4.8-10.8) K/uL RBC (4.2-5.4) M/uL Hgb (12.0-16.0) g/dL Hct (37-47) % MCV (80-100) fL MCH (25-34) pg MCHC (32-36) g/dL RDW Std Deviation (36.4-46.3) fL RDW Coeff of Edmar (11.5-14.5) % Plt Count (130-400) K/uL MPV (7.4-10.4) fL Immature Gran % (Auto) % Neut % (Auto) % Lymph % (Auto) % [place] % (Auto) % Eos % (Auto) % Baso % (Auto) % Neut # (Auto) (1.4-6.5) K/uL Lymph # (Auto) (1.2-3.4) K/uL [place] # (Auto) (0.11-0.59) K/uL Eos # (Auto) (0-0.5) K/uL Baso # (Auto) (0-0.2) K/uL Immature Gran # (Auto) (0.00-0.02) K/uL Sodium (136-145) mmol/L Potassium (3.5-5.1) mmol/L Chloride (98-107) mmol/L Carbon Dioxide (21-32) mmol/L Anion Gap (3-11) BUN (7-18) mg/dl Creatinine (0.6-1.2) mg/dl Est Cr Clr Drug Dosing ml/min Est GFR ( Amer) ml/min Est GFR (Non-Af Amer) ml/min BUN/Creatinine Ratio (10-20) Glucose (70-99) mg/dl Calcium (8.5-10.1) mg/dl Troponin I (0-0.045) ng/ml Lipase (73-393) U/L COVID-19 Eval Order SARS-CoV-2 (PCR) NEGATIVE (Negative) Imaging Data Chest x-ray: My impression: Chest x-ray negative. Airway clear. No pneumothorax. No consolidation. No cardiomegaly or cephalization.. No free air under the diap hragm. No fractures of the skeletal structures. ECG Data Indication: chest pain Rate (beats per minute): 73 Rhythm: normal sinus Findings: + LBBB and + RBBB; no ST depression, no ST elevation or no prolonged QT Additional Comments: HI 142 QRS 124 QTC 438 MDM Narrative 2046: The patient was evaluated in room C7. A complete history and physical exam was performed Cardiac monitoring: An order was placed for continuous cardiac monitoring. The monitor shows a rate of 70 with sinus rhythm 2150: Vital signs stable. Labs show an elevated troponin. Chest x-ray negative. Patient will be admitted for NSTEMI and started on heparin. patient will be admitted to the [facility] hospitalist team Dr. Blue notified. Impression & Plan Non-ST elevation CO (NSTEMI) Critical Care Time Critical Care Time: Yes Total Critical Care Time: 70 I have personally spent greater than 70 minutes of critical care time in the direct management of this patient. This includes bedside care, interpretation of diagnostic studies, and testing, discussion with consultants, patient, and family members, and other required patient management activities. This 70 minutes is in excess of all separately billable procedures. Discharge Plan Visit Data Chief Complaint: Chest Pain Stated Complaint: CHEST PAIN, ARYTHMIA ED Provider: Ronak Patrick Discharge Problem: Non-ST elevation CO (NSTEMI) Patient Disposition: Admitted As Inpatient Forms Stand Alone Forms: My [facility] Prescriptions Prescriptions: No Action amlodipine 2.5 mg tablet 2.5 mg PO QPM Qty: 90 RF: 3 nitroglycerin 0.4 mg tablet, sublingual See Rx Instructions .ROUTE .COMPLEX Qty: 75 RF: 3 cyanocobalamin (vitamin B-12) 1,000 mcg capsule 1,000 mcg PO DAILY RF: 0 prednisone 5 mg tablet 7.5 mg PO DAILY RF: 0 methotrexate sodium 2.5 mg tablet 2.5 mg PO DAILY RF: 0 cholecalciferol (vitamin D3) 2,000 units PO QPM RF: 0 valacyclovir 500 mg tablet 500 mg PO HS RF: 0 estradiol 0.01 % (0.1 mg/gram) cream 1 g vaginal .COMPLEX Qty: 42.5 RF: 1 zinc sulfate 1 tab PO DAILY RF: 0 cimetidine 400 mg tablet 400 mg PO TID RF: 0 sumatriptan succinate [Imitrex] 100 mg Tablet 0 mg PO DIRECTED PRN (Reason: Migraine Headache) RF: 0 glucosamine sulfate 500 mg Capsule 500 mg PO TID RF: 0 vitamin E 400 unit Capsule 400 unit PO QAM RF: 0 vitamins-lipotropics Tablet 1 tab PO BID RF: 0 topiramate 100 mg tablet 50 mg PO BID RF: 0 lorazepam [Ativan] 0.5 mg tablet 0.5 mg PO BID PRN (Reason: anxiety) Qty: 14 RF: 0 levothyroxine 88 mcg Tablet 88 mcg PO QAM RF: 0 pantoprazole 20 mg tablet,delayed release (DR/EC) 40 mg PO QAM RF: 0 duloxetine 60 mg capsule,delayed release(DR/EC) 60 mg PO QPM RF: 0 Probiotic 10 billion cell Capsule 1.75 cell PO QAM RF: 0 Referrals Referrals: Seth Harrison MD [Primary Care Provider] -
[2020-10-12] MEDS ORDERED: POTASSIUM CHLORIDE / WTR 10 MEQ/100 ML PLCT IV STA (23:53)
--- NOTE | 2020-10-13 00:06 | History & Physical Report ---
Date of Service October 12, 2020 Assessment & Plan (1) Prinzmetal's angina: Plan: This is a 70-year-old female with a notable past medical history of Prinzmetal angina, atypical chest pain syndrome, hypercholesterolemia, eosinophilic fasciitis, CKD stage III, depression, anxiety, hypothyroidism, osteoarthritis who presented to [facility] for evaluation of chest pain relieved by nitroglycerin, subsequently found to have evidence of elevated troponins on arrival. Chest Pain - with Elevated Troponins Patient reporting substernal chest pain that radiated to her left shoulder, was relieved by nitro, that lasted for approximately 4 hours while folding laundry Upon arrival, patient was found to have troponin of 1.88 ECG demonstrating persistence of right bundle branch block but has been visuali zed on EKGs back to 2019, but otherwise no major acute repolarization or conduction abnormalities Cardiac cath in 2019 unremarkable At this point, major concern is ruling out NSTEMI versus temporary coronary hypoperfusion that may have been caused by exacerbation of Prinzmetal's angina. Low suspicion for PE, AoD, esophageal spasms at present. -Status post ASA 324 in ED -Continue heparin drip started in ED Trend troponins Lipids, A1c ordered Echocardiogram in a.m. Consult cardiology, appreciate insight and recommendations ECG as needed for chest pain. Nitro as needed for chest pain Maintain K > 4, Mg > 2, Phos > 3 -- will replete K now Chronic medical problems: Migraines: Continue Topamax, Imitrex as needed Anxiety: Continue Cymbalta, Ativan as needed Eosinophilic fasciitis: Patient not currently taking methotrexate or prednisone, will hold Code: DNR/DNI Diet: Heart healthy Prophylaxis: On heparin drip Dispo: PCU (2) Hypercholesterolemia: (3) Atypical chest pain: (4) NSTEMI (non-ST elevated myocardial infarction): (5) Hypokalemia: (6) Acute non-ST elevation myocardial infarction (NSTEMI): (7) Chest pain: (8) Cystocele: (9) Encounter for pre-operative examination: (10) History of cardiac catheterization: (11) Eosinophilic fasciitis: (12) History of shingles: (13) History of appendectomy: (14) CKD (chronic kidney disease), stage III: (15) Migraine: (16) History of angina: (17) Depression: (18) Anxiety: (19) Hypothyroidism: History of Present Illness Primary Care Provider: Seth Harrison MD This is a 70-year-old female with a notable past medical history of Prinzmetal angina, hypercholesterolemia, eosinophilic fasciitis, CKD stage III, depression, anxiety, hypothyroidism, osteoarthritis who presented to [facility] for evaluation of chest pain. Patient says that she was folding laundry at approximately 1530 when she felt slow onset of a pressure radiating from the substernal area towards her left upper extremity. She says that this felt like her typical angina, however it was quite unusual for her to have it during the dayas it usually happens at night. Alongside this, she also endorsed feelings of palpitations happening at the same timealmost like her "heart was skipping a beat." She denies any shortness of breath during it. Denies any nausea or vomiting. She says that she took nitro x1 with good relief in the severity of the symptoms. She said, however, that the pain persisted until approximately 1930 before resolving. She denies any trauma to the chest. Denies any recent illness. She does state that over the last 3 weeks, there have been several stressful events which is left her somewhat on edge, but she feels she was otherwise within her normal health. She has been taking her medications as prescribed. She denies any history of smoking, alcohol, or recreational drug use. In the ED, patient was found to be hemodynamically stable with blood pressures ranging from 120-140 over 80s, pulse between 60 and 80s. Saturating appropriately on room air. Initial blood tests were significant for mild SUNITA, troponin I 0.88, ECG showing normal sinus rhythm with persistence of known right bundle branch block, but without acute repolarization or conduction abnormaliti es otherwise. Chest x-ray without acute processes. Given concern for acute coronary syndrome, patient was started on low-dose heparin with bolus. She did endorse mild palpitations while in the room. Allergies Allergy/AdvReac Type Severity Reaction Status Date / Time Iodinated Contrast Media Allergy Severe anaphylaxis Verified 10/13/20 00:34 meloxicam Allergy Intermediate Unresponsiv Verified 10/13/20 00:34 e penicillamine Allergy Unknown RASH, Verified 10/13/20 00:34 lupus-like rx Sulfa (Sulfonamide Allergy Unknown Rash Verified 10/13/20 00:34 Antibiotics) alendronate sodium Allergy Unknown Verified 10/13/20 00:34 diltiazem Allergy Unknown Verified 10/13/20 00:34 hydroxyzine Allergy Nausea Verified 10/13/20 00:34 mirtazapine [From Remeron] Allergy Migraine Verified 10/13/20 00:34 venlafaxine [From Effexor] Allergy Dizziness Verified 10/13/20 00:34 NSAIDS (Non-Steroidal AdvReac Intermediate kidney Verified 10/13/20 00:34 Anti-Inflamma failure gabapentin AdvReac Unknown hallucinati Verified 09/06/20 11:26 ons Cuprimine CAPS Allergy Unknown Uncoded 09/06/20 11:26 Opioid Analgesics AdvReac Unknown gi Uncoded 09/06/20 11:26 intolerance Home Medications Medication Instructions Recorded Confirmed Type glucosamine sulfate 500 mg capsule 500 mg PO TID 03/08/18 10/13/20 History sumatriptan succinate 100 mg 0 mg PO DIRECTED PRN 03/08/18 10/13/20 History tablet (Imitrex) vitamin E 400 unit capsule 400 unit PO QAM 03/08/18 10/13/20 History vitamins-lipotropics tablet 1 tab PO BID 03/08/18 10/13/20 History lorazepam 0.5 mg tablet (Ativan) 0.5 mg PO BID PRN #14 tab 05/24/18 10/13/20 Rx levothyroxine 88 mcg tablet 88 mcg PO QAM 10/18/18 10/13/20 History valacyclovir 500 mg tablet 500 mg PO HS 11/18/18 10/13/20 History duloxetine 60 mg capsule,delayed 60 mg PO QPM 11/26/18 10/13/20 History release Lactobacillus acidophilus 10 1.75 cell PO QAM 11/28/18 10/13/20 History billion cell capsule (Probiotic) amlodipine 2.5 mg tablet 2.5 mg PO QPM #90 tab 02/08/20 10/13/20 Rx cyanocobalamin (vitamin B-12) 1,000 mcg PO DAILY 03/08/20 10/13/20 History 1,000 mcg capsule pantoprazole 20 mg tablet,delayed 40 mg PO QAM tab 03/08/20 10/13/20 History release nitroglycerin 0.4 mg sublingual See Rx Instructions .ROUTE 04/15/20 10/13/20 Rx tablet .COMPLEX #75 tab cimetidine 400 mg tablet 400 mg PO TID tab 09/06/20 10/13/20 History topiramate 100 mg tablet 100 mg PO BID tab 09/06/20 10/13/20 History biotin 1,000 mcg chewable tablet 1,000 mcg PO DAILY 10/13/20 10/13/20 History cholecalciferol (vitamin D3) 50 50 mcg PO QPM 10/13/20 10/13/20 History mcg (2,000 unit) tablet estradiol 1 g VAGINAL .COMPLEX PRN 10/13/20 10/13/20 History kfozfdqz-hll-xzlzaf 5 mg-zeaxanth 1 cap PO QAM 10/13/20 10/13/20 History 1 mg-bilberry 7.5 mg-herbal capsule ([employer] Formula) zinc sulfate 50 mg zinc (220 mg) 0 mg PO QPM 10/13/20 10/13/20 History tablet Past Med/Surg History Medical History Acute renal insufficiency Anxiety Cervicalgia CKD (chronic kidney disease), stage III due to NSAID use- FOLLOWS WITH PCP, DR. SETH HARRISON/ [facility] Depression Eosinophilic fasciitis On chronic H2 annemarie History of angina SEPTEMBER 2018.....Catheterization was negative....to see PCP before OR....senior hydrogeologist felt more musculoskeletal in origin...more details under notes..DO DOROTEO History of shingles on chronic Valtrex Hypothyroidism Kidney stones Migraine HX - GETS OCCASIONALLY Nausea and vomiting after administration of anesthetic agent Nephrolithiasis Osteoarthritis Osteoporosis Rib fracture left 9th rib- surgeon aware Surgical History H/O total hysterectomy with bilateral salpingo-oophorectomy (BSO) Age 25 for endometriosis. History of appendectomy History of cardiac catheterization SEPTEMBER 2018- [facility]- NO STENTS- "EVERYTHING CLEAN PER PATIENT" FOLLOWS WITH DR. JIMENEZ History of colonoscopy Family History Mother Dementia, Onset Age: 100 Other No pertinent family history Social History Smoking Status: Never smoker Second Hand Exposure: No; Hx Alcohol Use: No Hx Substance Use: No Preferred Language: Cymraes Communication Ability: Effective Beaver Trapper Required: No Beliefs That Will Affect Care: Orthodoxy Current Living Situation: Family Current Living Situation Comment: Lives at home with daughter How many Children do You have: 2 Feels Safe at Home: Yes Safety Concerns: Feels Safe At This Time Assistive Devices: Glasses Review of Systems Review of Systems: Constitutional: Denies fever, chills, malaise, weight change Eyes: Denies double vision, vision change, eye pain ENT: Denies ear pain, sore throat, sinus pain Cardiovascular: Denies Chest pain, chest pressure, extremity swelling Respiratory: Denies shortness of breath, cough, sputum production, difficulty breathing Gastrointestinal: Denies abdominal pain, nausea, vomiting, constipation, diarrhea Genitourinary: Denies urinary symptoms including dysuria Musculoskeletal: Denies weakness, does endorse some persistent muscle aches within her lower extremities Integumentary:Denies rash, lesions, bruising Neurological: Denies headache, numbness, tingling, focal weakness Physical Exam Physical Exam: General: Tired, but well-appearing 70-year-old female who is lying back in her hospital bed rocks upon my arrival. She is freely conversive. No acute distress. HEENT: NCAT. Eyes - Sclera are white, anicteric, and without injection. PERRL. EOMs display full ROM bilaterally. Mouth - MMM with no tonsillar edema or exudates. Cardiac: Normal rate and regular rhythm; S1 and S2 present with no murmurs, rubs, or gallops. No JVD. Pulmonary: Good respiratory effort with symmetric expansion of the chest. No use of accessory muscles. Lungs were clear to auscultation bilaterally with no crackles or wheezes. Abdominal: Normoactive bowel sounds. Abdomen was soft, nondistended, and non- tender to palpation. Extremities: Upper and lower extremities are warm and well perfused. Radial and dorsalis pedis pulses were 2+ b/l. Capillary refill assessed in UE was < 3 sec. Psych: Well-developed, well-nourished, appropriately dressed for occasion. Behavior is cooperative and appropriate. Affect is WNL. Insight is appropriate. Results & Data Results & Data ([facility]) Vital Signs (Past 12 Hours) Vital Signs Temp Pulse Resp BP Pulse Ox 10/12/20 22:00 69 14 132/81 94 10/12/20 21:30 66 16 135/72 95 10/12/20 20:42 37.0 C 80 18 136/86 95 Supervising Physician Co-Signing Physician Notes Attending addendum: I have physically seen this patient, have supervised the medical residents activities, and agree with the H&P unless as otherwise noted. Assessment and Plan: Elevated troponin/palpitations/CAD/NSTEMI/Prinzmetal's angina- The patient will be admitted to telemetry for serial cardiac enzymes, serial EKG's, cardiac rhythm monitoring and a 2-D echocardiogram with Dopplers. Give Klor-Con 40 mEq p.o. x1, and optimize potassium to 4, and keep magnesium greater than equal to 2, due to PACs and PVCs noted on monitor in ED Check a fasting lipid panel and hemoglobin A1c Continue heparin drip started in ED Given aspirin 3 and 24 mg in ED, continue 81 mg every morning Consult cardiology Hypothyroidism- Continue levothyroxine 88 mcg every morning GERD- Continue pantoprazole Remaining orders and notations as noted Resident Activity Tracking Resident Involvement: Resident Care Provided Care Provided: Adult Hospital Medicine
[2020-10-13] MEDS ORDERED: NITROGLYCERIN SL 0.4 MG/TAB TAB SL PRN (01:31)
[2020-10-13] MEDS ORDERED: LORazepam 0.5 MG TAB PO PRN (01:31)
[2020-10-13] MEDS ORDERED: POLYETHYLENE (MIRALAX) 17 GM PACK PO PRN (01:31)
[2020-10-13] MEDS ORDERED: ACETAMINOPHEN 325 MG TAB PO PRN (01:31)
[2020-10-13] MEDS: NSS + 20MEQ KCL 20 MEQ/1,000 ML BAG IV SCH ×2 (02:39→12:51)
[2020-10-13 04:53] LABS: Partial Thromboplastin Ratio 2.4
[2020-10-13 04:54] LABS: Partial Thromboplastin Time 62.6 Seconds (21.0-31.0)
[2020-10-13 05:02] LABS: BUN Creatinine Ratio 19.7 (10-20); Calcium 8.1 mg/dl (8.5-10.1); Creatinine Clr Calc Pharmacy 40.1 ml/min; Est GFR (African American) 60.2 ml/min; Potassium 3.5 mmol/L (3.5-5.1)
[2020-10-13] MEDS: LEVOTHYROXINE SODIUM 88 MCG TABLET PO SCH (05:47)
--- NOTE | 2020-10-13 06:43 | XRay Report ---
XR chest 2V PA/lateral CLINICAL HISTORY: Atypical chest pain COMPARISON STUDY: 09/24/2019 FINDINGS: The cardiac and mediastinal contours remain stable. There is no failure. There is no focal pulmonary consolidation. There are no pleural effusions.[No pneumothorax is visualized. IMPRESSION: No active disease in the chest. ACT 112: Negative or not required by law. Electronically signed by: Trell Desai M.D. 10/13/2020 6:42 AM
[2020-10-13 07:34] LABS: Estimated Average Glucose 111 mg/dl; Hemoglobin A1C 5.5 % (4.5-5.6)
--- NOTE | 2020-10-13 08:13 | Electrocardiogram Report ---
Test Reason : Blood Pressure : / mmHG Vent. Rate : 073 BPM Atrial Rate : 073 BPM P-R Int : 142 ms QRS Dur : 124 ms QT Int : 398 ms P-R-T Axes : 069 -56 066 degrees QTc Int : 438 ms Sinus rhythm with occasional Premature ventricular complexes Left atrial enlargement Right bundle branch block with repolarization abnormality Left anterior fascicular block Left ventricular hypertrophy Chronic T-wave inversion in Anterior leads Abnormal ECG When compared with ECG of 20-OCT-2018 09:02, Premature ventricular complexes are now Present Left anterior fascicular block is now Present T wave inversion no longer evident in Anterolateral leads Confirmed by Frank Godoy ([id number]) on 10/13/2020 8:12:56 AM Referred By: REFERRED SELF Confirmed By:Frank Godoy
--- NOTE | 2020-10-13 08:14 | Electrocardiogram Report ---
Test Reason : Blood Pressure : / mmHG Vent. Rate : 063 BPM Atrial Rate : 063 BPM P-R Int : 148 ms QRS Dur : 122 ms QT Int : 452 ms P-R-T Axes : 070 -57 043 degrees QTc Int : 462 ms Normal sinus rhythm Right bundle branch block Left anterior fascicular block Left ventricular hypertrophy Abnormal ECG When compared with ECG of 12-OCT-2020 20:50, Premature ventricular complexes are no longer Present T wave inversion now evident in Anterolateral leads Confirmed by Frank Godoy ([id number]) on 10/13/2020 8:13:49 AM Referred By: REFERRED SELF Confirmed By:Frank Godoy
[2020-10-13] MEDS: PANTOprazole 40 MG TAB PO SCH (08:19)
[2020-10-13] MEDS: TOPIRAMATE 50 MG TAB PO SCH ×2 (08:20→20:06)
[2020-10-13] MEDS: CYANOCOBALAMIN 500 MCG TABLET (VITAMIN B-12) PO SCH (08:20)
[2020-10-13] MEDS: TOCOPHERYL, DL-ALPHA 400 UNITS 180 MG CAP PO SCH (08:21)
[2020-10-13] MEDS: GLUCOSAMINE SULFATE 500 MG CAP PO SCH ×3 (08:21→20:07)
[2020-10-13] MEDS: LACTOBACILLUS ACIDOPHILUS 1 GM PACK PO SCH (08:21)
[2020-10-13] MEDS ORDERED: FAMOTIDINE 40 MG TABLET PO SCH (09:00)
--- NOTE | 2020-10-13 09:32 | XCELERA ---
[id number]
[2020-10-13] MEDS: CIMETIDINE 400 MG PO SCH ×3 (10:00→20:06)
--- NOTE | 2020-10-13 11:34 | Hospitalist Progress Note ---
Date of Service October 13, 2020 Assessment & Plan (1) Prinzmetal's angina: Plan: This is a 70-year-old female with a notable past medical history of Prinzmetal angina, atypical chest pain syndrome, hypercholesterolemia, eosinophilic fasciitis, CKD stage III, depression, anxiety, hypothyroidism, osteoarthritis who presented to [facility] for evaluation of chest pain relieved by nitroglycerin, subsequently found to have evidence of elevated troponins on arrival. Chest Pain - with Elevated Troponins Patient reporting substernal chest pain that radiated to her left shoulder, was relieved by nitro, that lasted for approximately 4 hours while folding laundry. Upon arrival, patient was found to have troponin of 1.88. ECG demonstrating persistence of right bundle branch block but has been visualized on EKGs back to 2019, but otherwise no major acute repolarization or conduction abnormalities. Cardiac cath in 2019 unremarkable. Cardiology has determined this episode an NSTEMI. Echo showed EF 60-65%, grade 1 diastolic dysfunction, LA dilation. Consult cardiology, appreciate insight and recommendations. Patient undergoing stress test tomorrow. ECG as needed for chest pain. Nitro as needed for chest pain -stop KCl Chronic medical problems: Migraines: Continue Topamax, Imitrex as needed Anxiety: Continue Cymbalta, Ativan as needed Eosinophilic fasciitis: Patient not currently taking methotrexate or prednisone, will hold Code: DNR/DNI Diet: Heart healthy Prophylaxis: On heparin drip Dispo: PCU (2) Hypercholesterolemia: (3) Atypical chest pain: (4) NSTEMI (non-ST elevated myocardial infarction): (5) Hypokalemia: (6) Acute non-ST elevation myocardial infarction (NSTEMI): (7) Chest pain: (8) Cystocele: (9) Encounter for pre-operative examination: (10) History of cardiac catheterization: (11) Eosinophilic fasciitis: (12) History of shingles: (13) History of appendectomy: (14) CKD (chronic kidney disease), stage III: (15) Migraine: (16) History of angina: (17) Depression: (18) Anxiety: (19) Hypothyroidism: Admission and Anticipated Discharge Date Admission Date: October 12, 2020 Supervising Physician Co-Signing Physician Notes I personally examined the patient and verified all coon points of history and exam, discussed case, and agree with decision making with Dr Doe. Feeling better. No further angina. Discussed treatment plansanswered all questions to the best my ability. She notes that she got lightheaded with higher dosing of amlodipine before, was worried about verapamilbut after we discussed risk/benefits/potential side effects she is okay with proceeding. Vitals noted, in general she is awake and alert pleasant no distress. HEENT normocephalic atraumatic mucous membranes moist. Breathing unlabored no accessory muscle use good effort. Skin shows no rashes no pallor or icterus. Prinzmetal's angina/vasospastic NSTEMIfortunately mild, asymptomatic now. Switch from amlodipine to verapamil. Stress test to assess exercise tolerance/tolerability. Hopefully home tomorrow. Subjective 70yo Female presents to ED with episode chest pain that was relieved by nitro and rest. She says recently she has had some life stressors, did lots of yard work, was warm outside, had squeezing and chest pain and a headache with palpitations while folding clothing. Says it felt different from her previous 2- 3 angina episodes since her diagnosis, said those felt more like fizzy squeezing hiccups. Her last cardiac cath 2019 normal. In the ED her trop 1.88 decreased to 1.81, chest XR negative, EKG showed RBBB. Echo ordered, cardio consulted. Cardio recommended continuing low dose aspirin, d/c heparin tonight, medication change to verapamil or low dose beta annemarie for senior living management. Patient is scheduled for stress test tomorrow. Patient seen at bedside, ate slept well normal BM. Daughter brought in her home medication. Dr. Young educated patient on calcium channel blockers, patient comfortable with adjusting her medications. Telemetry showed sinus rhythm in 60-70's with occasional PACs. PMH: Prinzmetal angina, HLD, eosinophilic fascitis, CKD3, hypothyroidism, depression/anxiety, OA Review of Systems Review of Systems: Constitutional: Denies fever, chills, malaise, weight change Eyes: Denies double vision, vision change, eye pain ENT: Denies ear pain, sore throat, sinus pain Cardiovascular: Denies Chest pain, chest pressure, extremity swelling Respiratory: Denies shortness of breath, cough, sputum production, difficulty breathing Gastrointestinal: Denies abdominal pain, nausea, vomiting, constipation, diarrhea Genitourinary: Denies urinary symptoms including dysuria Musculoskeletal: Denies weakness, does endorse some persistent muscle aches within her lower extremities Integumentary:Denies rash, lesions, bruising Neurological: Denies headache, numbness, tingling, focal weakness Physical Exam Constitutional: WD/WN, vitals as above average body habitus, cooperative and comfortable Respiratory: normal respiratory effort, lungs clear to auscultation Cardiovascular: RRR, no murmur, no edema Gastrointestinal (Abdomen): normal bowel sounds, soft, nontender, no hepatosplenomegaly Psychiatric: A+Ox3, euthymic affect Results & Data Results & Data ([facility]) Vital Signs (Past 12 Hours) Vital Signs Temp Pulse Pulse Resp BP BP Pulse Ox 10/13/20 07:54 36.5 C 74 18 125/80 99 10/13/20 07:00 72 10/13/20 04:07 36.4 C L 74 18 110/69 96 10/13/20 03:51 72 10/13/20 01:33 36.6 C 73 18 139/90 97 10/13/20 01:15 36.6 C 73 18 139/90 97 10/13/20 00:30 76 20 132/78 92 10/13/20 00:00 74 18 132/75 97 10/12/20 23:40 73 18 123/72 96 Laboratory Results 10/13/20 10/13/20 10/13/20 Range/Units 11:25 05:32 04:09 WBC (4.8-10.8) K/uL RBC (4.2-5.4) M/uL Hgb (12.0-16.0) g/dL Hct (37-47) % MCV (80-100) fL MCH (25-34) pg MCHC (32-36) g/dL RDW Std Deviation (36.4-46.3) fL RDW Coeff of [place] (11.5-14.5) % Plt Count (130-400) K/uL MPV (7.4-10.4) fL Immature Gran % (Auto) % Neut % (Auto) % Lymph % (Auto) % [place] % (Auto) % Eos % (Auto) % Baso % (Auto) % Neut # (Auto) (1.4-6.5) K/uL Lymph # (Auto) (1.2-3.4) K/uL [place] # (Auto) (0.11-0.59) K/uL Eos # (Auto) (0-0.5) K/uL Baso # (Auto) (0-0.2) K/uL Immature Gran # (Auto) (0.00-0.02) K/uL APTT 62.6 H* (21.0-31.0) Seconds PTT Ratio 2.4 Sodium (136-145) mmol/L Potassium (3.5-5.1) mmol/L Chloride (98-107) mmol/L Carbon Dioxide (21-32) mmol/L Anion Gap (3-11) BUN (7-18) mg/dl Creatinine (0.6-1.2) mg/dl Est Cr Clr Drug Dosing ml/min Est GFR ( Amer) ml/min Est GFR (Non-Af Amer) ml/min BUN/Creatinine Ratio (10-20) Glucose (70-99) mg/dl Estimat Average Glucose mg/dl Hemoglobin A1c (4.5-5.6) % Calcium (8.5-10.1) mg/dl Troponin I 1.860 H* 1.810 H* (0-0.045) ng/ml Triglycerides (0-150) mg/dl Cholesterol (0-200) mg/dl LDL Cholesterol, Calc mg/dl VLDL Cholesterol, Calc mg/dl HDL Cholesterol mg/dl Cholesterol/HDL Ratio Lipase (73-393) U/L COVID-19 Eval Order SARS-CoV-2 (PCR) (Negative) 10/13/20 10/13/20 10/12/20 Range/Units 04:09 04:09 22:13 WBC (4.8-10.8) K/uL RBC (4.2-5.4) M/uL Hgb (12.0-16.0) g/dL Hct (37-47) % MCV (80-100) fL MCH (25-34) pg MCHC (32-36) g/dL RDW Std Deviation (36.4-46.3) fL RDW Coeff of [place] (11.5-14.5) % Plt Count (130-400) K/uL MPV (7.4-10.4) fL Immature Gran % (Auto) % Neut % (Auto) % Lymph % (Auto) % [place] % (Auto) % Eos % (Auto) % Baso % (Auto) % Neut # (Auto) (1.4-6.5) K/uL Lymph # (Auto) (1.2-3.4) K/uL [place] # (Auto) (0.11-0.59) K/uL Eos # (Auto) (0-0.5) K/uL Baso # (Auto) (0-0.2) K/uL Immature Gran # (Auto) (0.00-0.02) K/uL APTT (21.0-31.0) Seconds PTT Ratio Sodium 145 (136-145) mmol/L Potassium 3.5 (3.5-5.1) mmol/L Chloride 118 H (98-107) mmol/L Carbon Dioxide 26 (21-32) mmol/L Anion Gap 1.0 L (3-11) BUN 21 H (7-18) mg/dl Creatinine 1.08 (0.6-1.2) mg/dl Est Cr Clr Drug Dosing 40.1 ml/min Est GFR ( Amer) 60.2 ml/min Est GFR (Non-Af Amer) 52.0 ml/min BUN/Creatinine Ratio 19.7 (10-20) Glucose 101 H (70-99) mg/dl Estimat Average Glucose 111 mg/dl Hemoglobin A1c 5.5 (4.5-5.6) % Calcium 8.1 L (8.5-10.1) mg/dl Troponin I (0-0.045) ng/ml Triglycerides 87 (0-150) mg/dl Cholesterol 189 (0-200) mg/dl LDL Cholesterol, Calc 114 mg/dl VLDL Cholesterol, Calc 17 mg/dl HDL Cholesterol 58 mg/dl Cholesterol/HDL Ratio 3 Lipase (73-393) U/L COVID-19 Eval Order SARS-CoV-2 (PCR) NEGATIVE (Negative) 10/12/20 10/12/20 10/12/20 Range/Units 22:13 21:05 21:05 WBC 7.45 (4.8-10.8) K/uL RBC 4.05 L (4.2-5.4) M/uL Hgb 13.5 (12.0-16.0) g/dL Hct 40.8 (37-47) % MCV 100.7 H (80-100) fL MCH 33.3 (25-34) pg MCHC 33.1 (32-36) g/dL RDW Std Deviation 49.9 H (36.4-46.3) fL RDW Coeff of [place] 13.6 (11.5-14.5) % Plt Count 281 (130-400) K/uL MPV 10.7 H (7.4-10.4) fL Immature Gran % (Auto) 0.1 % Neut % (Auto) 47.4 % Lymph % (Auto) 39.2 % [place] % (Auto) 9.9 % Eos % (Auto) 2.1 % Baso % (Auto) 1.3 % Neut # (Auto) 3.52 (1.4-6.5) K/uL Lymph # (Auto) 2.92 (1.2-3.4) K/uL [place] # (Auto) 0.74 H (0.11-0.59) K/uL Eos # (Auto) 0.16 (0-0.5) K/uL Baso # (Auto) 0.10 (0-0.2) K/uL Immature Gran # (Auto) 0.01 (0.00-0.02) K/uL APTT (21.0-31.0) Seconds PTT Ratio Sodium 144 (136-145) mmol/L Potassium 3.7 (3.5-5.1) mmol/L Chloride 116 H (98-107) mmol/L Carbon Dioxide 23 (21-32) mmol/L Anion Gap 5.0 (3-11) BUN 21 H (7-18) mg/dl Creatinine 1.25 H (0.6-1.2) mg/dl Est Cr Clr Drug Dosing 34.6 ml/min Est GFR ( Amer) 50.5 ml/min Est GFR (Non-Af Amer) 43.5 ml/min BUN/Creatinine Ratio 16.5 (10-20) Glucose 97 (70-99) mg/dl Estimat Average Glucose mg/dl Hemoglobin A1c (4.5-5.6) % Calcium 8.8 (8.5-10.1) mg/dl Troponin I 1.880 H* (0-0.045) ng/ml Triglycerides (0-150) mg/dl Cholesterol (0-200) mg/dl LDL Cholesterol, Calc mg/dl VLDL Cholesterol, Calc mg/dl HDL Cholesterol mg/dl Cholesterol/HDL Ratio Lipase 262 (73-393) U/L COVID-19 Eval Order Covid19 at [facility] SARS-CoV-2 (PCR) (Negative) Medications Administered Current Inpatient Medications Acetaminophen (Acetaminophen 325 Mg Tab) 650 mg PO Q4H PRN PRN Reason: Pain or Fever Stop: 11/12/20 01:30 Cimetidine (Pt Own Med - Cimetidine 400 Mg Tablet) 400 mg PO TID BERTRAND Stop: 11/12/20 09:59 Last Admin: 10/13/20 14:01 Dose: 400 mg Documented by: Cyanocobalamin (Cyanocobalamin 500 Mcg Tablet (Vitamin B-12)) 1,000 mcg PO DAILY BERTRAND Stop: 11/12/20 08:59 Last Admin: 10/13/20 08:20 Dose: 1,000 mcg Documented by: Duloxetine HCl (Duloxetine Hcl 60 Mg Cap) 60 mg PO QPM BERTRAND Stop: 11/12/20 20:59 Glucosamine Sulfate (Glucosamine Sulfate 500 Mg Cap) 500 mg PO TID BERTRAND Stop: 11/12/20 08:59 Last Admin: 10/13/20 14:01 Dose: 500 mg Documented by: Heparin Sodium/Dextrose (Heparin Sodium/Dextrose) 25,000 units in 500 mls @ 13 mls/hr IV .Q24H BERTRAND; Protocol Stop: 11/11/20 22:14 Last Titration: 10/13/20 19:11 Dose: 650 units/hr, 13 mls/hr Documented by: Potassium Chloride/Sodium Chloride (Normal Saline W/20 Meq Kcl) 20 meq in 1,000 mls @ 100 mls/hr IV .Q10H BERTRAND Stop: 11/12/20 01:44 Last Admin: 10/13/20 12:51 Dose: 100 mls/hr Documented by: Lactobacillus Acidophilus (Lactobacillus Acidophilus 1 Gm Pack) 1 gm PO QAM BERTRAND Stop: 11/12/20 08:59 Last Admin: 10/13/20 08:21 Dose: 1 gm Documented by: Levothyroxine Sodium (Levothyroxine Sodium 88 Mcg Tablet) 88 mcg PO DAILYBB BERTRAND Stop: 11/12/20 06:29 Last Admin: 10/13/20 05:47 Dose: 88 mcg Documented by: Lorazepam (Lorazepam 0.5 Mg Tab) 0.5 mg PO BID PRN PRN Reason: anxiety Stop: 11/12/20 01:30 Miscellaneous (*Estradiol*Order Awaiting Action) 1 ea N/A QS [facility] Stop: 11/12/20 07:59 Last Admin: 10/13/20 17:14 Dose: Not Given Documented by: Nitroglycerin (Nitroglycerin Sl 0.4 Mg/Tab Tab) 0.4 mg SL UD PRN PRN Reason: Chest Pain Stop: 11/12/20 01:30 Pantoprazole Sodium (Pantoprazole 40 Mg Tab) 40 mg PO QAM [facility] Stop: 11/12/20 08:59 Last Admin: 10/13/20 08:19 Dose: 40 mg Documented by: Polyethylene Glycol (Polyethylene (Miralax) 17 Gm Pack) 17 gm PO DAILY PRN PRN Reason: Constipation Stop: 11/12/20 01:30 Topiramate (Topiramate 50 Mg Tab) 50 mg PO BID [facility] Stop: 11/12/20 08:59 Last Admin: 10/13/20 08:20 Dose: 50 mg Documented by: Valacyclovir HCl (Valacyclovir Hcl 500 Mg Tablet) 500 mg PO HS [facility] Stop: 10/20/20 20:59 Verapamil HCl (Verapamil Hcl 180 Mg Tabcr) 180 mg PO QAM [facility] Stop: 11/13/20 08:59 Vitamin D (Cholecalciferol 1,000 Units 25 Mcg Tab) 2,000 units PO QPM [facility] Stop: 11/12/20 20:59 Vitamin E (Tocopheryl, Dl-Alpha 400 Units 180 Mg Cap) 400 units PO QAM [facility] Stop: 11/12/20 08:59 Last Admin: 10/13/20 08:21 Dose: 400 units Documented by: Resident Activity Tracking Resident Involvement: Resident Care Provided Care Provided: Adult Hospital Medicine
--- NOTE | 2020-10-13 12:34 | Cardiology Consultation ---
Date of Consultation October 13, 2020 Assessment & Plan (1) Acute non-ST elevation myocardial infarction (NSTEMI): Patient with history of Prinzmetal's angina presents with chest pain and elevated troponin, ECG without obvious change (but not obtained during chest pain), and normal wall motion on echocardiogram. Most likely explanation for her non-ST elevation myocardial infarction is prolonged coronary spasm, much less likely acute vessel thrombosis or occlusive coronary artery disease (given absence of any significant CAD on catheterization 2018). Although aspirin and heparin are unnecessary in the context of likely coronary spasm, reasonable to continue low-dose aspirin (81 mg daily) long-term given modest vascular risk factors (age, dyslipidemia) and the fact she has had a second unexplained non-STEMI, and continue heparin for 24 hours (could be discontinued around 8 PM tonight) to address the unlikely but possible presence of coronary artery thrombosis. After further observation overnight to ensure no recurrent chest pain, dysrhythmias, or clinical deterioration off heparin (to be discontinued this evening), would recommend stress echocardiogram tomorrow to assess exercise hemodynamics, exclude the remote possibility that she developed obstructive coronary artery disease. and to allow patient to return to full activity promptly. For longer-term management of her Prinzmetal's, see below. (2) Prinzmetal's angina: She has been on amlodipine to reduce the likelihood of coronary spasm. However, she now has had a second non-STEMI, so may require additional or alternative therapy. She notes that higher doses of amlodipine caused orthostatic lightheadedness and that she could not tolerate diltiazem in the past. If she can tolerate without developing bradycardia, would consider verapamil as coronary spasm preventative agent. This would have the additional benefit that it might contribute to migraine prophylaxis, potentially allowing for reduction or elimination of Topamax. If she is unable to tolerate verapamil, could consider adding a low-dose beta- annemarie to her amlodipine. Although a beta-annemarie does not directly address coronary spasm, it seems that overactivity/adrenergic environment contributed to this non-STEMI and it would also help reduce the likelihood of ventricular ectopy. She has favorable hemodynamics currently and is asymptomatic, therefore no immediate change in her vasoactive regimen. However, would hold amlodipine tomorrow morning and check with Dr. Maldonado regarding long-term management of her Prinzmetal's angina (he will be rounding in the hospital tomorrow morning and could decide on verapamil versus beta-annemarie versus other). (3) PVCs (premature ventricular contractions): Noted transiently, likely the source of her subjective palpitations. As above, could either substitute verapamil for amlodipine or add low-dose beta- annemarie. (4) Mild mitral regurgitation: Noted on 2019 echocardiogram and again currently, no mold insert changer time. History of Present Illness Reason for Consultation: NSTEMI Requesting Physician: Abhishek Mueller MD Attending Physician: Abhishek Young DO History of Present Illness 70-year-old woman with history of atypical chest pain and apparent Prinzmetal's angina (non-STEMI with normal coronaries 2019) who is followed by Dr. Maldonado, admitted 10/13/2023 chest pain and again noted to have an elevated troponin. During her 2019 admission, troponin was 1.8 at peak, ECG showed chronic T wave inversions anteriorly, catheterization showed no evidence of coronary artery disease. Chest CT showed no aortic dissection and no pulmonary embolism. She also had chest wall and back pain which was reproducible to palpation. Thus, she was felt to have both an atypical musculoskeletal chest pain type syndrome along with apparent Prinzmetal's (variant) angina. She was continued on amlodipine to manage potential coronary spasm. She had done well since the 2019 hospitalization, exercising regularly with no chest symptoms. She was seen by Dr. Maldonado a month ago and reported no significant problems. The day of admission she had been moving some heavy [employer] plants and exerting herself more than usual, she noted intermittent anterior chest discomfort occurring for 10 to 20 minutes at a time over a period of 4 hours, prompting an ER visit. She also noted a subjective sense of "missed beats" during this time. She denied tachypalpitations, lightheadedness, presyncope, or syncope. ECGs obtained in the ER and subsequently showed no acute ST change, but the patient noted these were not obtained during chest pain episodes. Her troponin again peaked at 1.88 and is declining. She has had no further symptoms overnight and is comfortable presently. No current chest pain, dyspnea, or lightheadedness. No further palpitations. Allergies Allergy/AdvReac Type Severity Reaction Status Date / Time Iodinated Contrast Media Allergy Severe anaphylaxis Verified 10/13/20 00:34 meloxicam Allergy Intermediate Unresponsiv Verified 10/13/20 00:34 e penicillamine Allergy Unknown RASH, Verified 10/13/20 00:34 lupus-like rx Sulfa (Sulfonamide Allergy Unknown Rash Verified 10/13/20 00:34 Antibiotics) alendronate sodium Allergy Unknown Verified 10/13/20 00:34 diltiazem Allergy Unknown Verified 10/13/20 00:34 hydroxyzine Allergy Nausea Verified 10/13/20 00:34 mirtazapine [From Remeron] Allergy Migraine Verified 10/13/20 00:34 venlafaxine [From Effexor] Allergy Dizziness Verified 10/13/20 00:34 NSAIDS (Non-Steroidal AdvReac Intermediate kidney Verified 10/13/20 00:34 Anti-Inflamma failure gabapentin AdvReac Unknown hallucinati Verified 09/06/20 11:26 ons Cuprimine CAPS Allergy Unknown Uncoded 09/06/20 11:26 Opioid Analgesics AdvReac Unknown gi Uncoded 09/06/20 11:26 intolerance Home Medications Medication Instructions Recorded Confirmed Type glucosamine sulfate 500 mg capsule 500 mg PO TID 03/08/18 10/13/20 History sumatriptan succinate 100 mg 0 mg PO DIRECTED PRN 03/08/18 10/13/20 History tablet (Imitrex) vitamin E 400 unit capsule 400 unit PO QAM 03/08/18 10/13/20 History vitamins-lipotropics tablet 1 tab PO BID 03/08/18 10/13/20 History lorazepam 0.5 mg tablet (Ativan) 0.5 mg PO BID PRN #14 tab 05/24/18 10/13/20 Rx levothyroxine 88 mcg tablet 88 mcg PO QAM 10/18/18 10/13/20 History valacyclovir 500 mg tablet 500 mg PO HS 11/18/18 10/13/20 History duloxetine 60 mg capsule,delayed 60 mg PO QPM 11/26/18 10/13/20 History release Lactobacillus acidophilus 10 1.75 cell PO QAM 11/28/18 10/13/20 History billion cell capsule (Probiotic) amlodipine 2.5 mg tablet 2.5 mg PO QPM #90 tab 02/08/20 10/13/20 Rx cyanocobalamin (vitamin B-12) 1,000 mcg PO DAILY 03/08/20 10/13/20 History 1,000 mcg capsule pantoprazole 20 mg tablet,delayed 40 mg PO QAM tab 03/08/20 10/13/20 History release nitroglycerin 0.4 mg sublingual See Rx Instructions .ROUTE 04/15/20 10/13/20 Rx tablet .COMPLEX #75 tab cimetidine 400 mg tablet 400 mg PO TID tab 09/06/20 10/13/20 History topiramate 100 mg tablet 100 mg PO BID tab 09/06/20 10/13/20 History biotin 1,000 mcg chewable tablet 1,000 mcg PO DAILY 10/13/20 10/13/20 History cholecalciferol (vitamin D3) 50 50 mcg PO QPM 10/13/20 10/13/20 History mcg (2,000 unit) tablet estradiol 1 g VAGINAL .COMPLEX PRN 10/13/20 10/13/20 History wugdoisr-bpa-aulbnt 5 mg-zeaxanth 1 cap PO QAM 10/13/20 10/13/20 History 1 mg-bilberry 7.5 mg-herbal capsule ([employer] Formula) zinc sulfate 50 mg zinc (220 mg) 0 mg PO QPM 10/13/20 10/13/20 History tablet Patient History Medical History Acute renal insufficiency Anxiety Cervicalgia CKD (chronic kidney disease), stage III due to NSAID use- FOLLOWS WITH PCP, DR. SETH HARRISON/ [facility] Depression Eosinophilic fasciitis On chronic H2 annemarie History of angina SEPTEMBER 2018.....Catheterization was negative....to see PCP before OR....support coordinator felt more musculoskeletal in origin...more details under notes..DO DOROTEO History of shingles on chronic Valtrex Hypothyroidism Kidney stones Migraine HX - GETS OCCASIONALLY Nausea and vomiting after administration of anesthetic agent Nephrolithiasis Osteoarthritis Osteoporosis Rib fracture left 9th rib- surgeon aware Surgical History H/O total hysterectomy with bilateral salpingo-oophorectomy (BSO) Age 25 for endometriosis. History of appendectomy History of cardiac catheterization SEPTEMBER 2018- [facility]- NO STENTS- "EVERYTHING CLEAN PER PATIENT" FOLLOWS WITH DR. MALDONADO History of colonoscopy Family History No pertinent family history Dementia Mother, Onset Age: 100 Social History Smoking Status: Never smoker Second Hand Exposure: No; Hx Alcohol Use: No Hx Substance Use: No Preferred Language: Maori Communication Ability: Effective Training Manager Required: No Beliefs That Will Affect Care: Orthodoxy Current Living Situation: Family Current Living Situation Comment: Lives at home with daughter Feels Safe at Home: Yes Safety Concerns: Feels Safe At This Time Assistive Devices: Glasses Review of Systems Cardiovascular: Additional Comments: Per HPI. Neurologic: Migraine headaches, these have been infrequent on Topamax. Physical Exam Physical Exam: Elderly white female in no distress. BP normotensive. Pulse 64 and regular without ectopy. Skin: no ecchymoses or generalized lesions. HEENT: unremarkable. Neck: no JVD or carotid bruits. Lungs: clear. Cardiac: regular rhythm, no murmur or gallop. Abdomen: benign. Extremities: no edema, pulses intact. Neurologic: normal affect, nonfocal. Results & Data ([facility]) Laboratory Results Troponin 1.88 declining to 1.81. Creatinine 1.08. Hemoglobin A1c 5.5%. Normal CBC. Diagnostic Findings Serial ECGs show sinus rhythm with occasional PVCs, right bundle branch block, left anterior fascicular block, left ventricular hypertrophy, and chronic T wave inversions in the anterior and anterolateral leads. No acute ST deviation noted. Echocardiogram showed EF 60 to 65% with normal wall motion, normal wall thickness with grade 1 diastolic dysfunction, mild mitral and tricuspid re gurgitation with normal right ventricular systolic pressure. Chest x-ray was unremarkable. PG Care Time/CCT Total # of Minutes Spent Total Time Spent with Patient: Total time spent is greater than 50% in coordination of care (as documented) at patient's floor/unit and/or counseling patient: Coding Level of Care Code 37415 Initial Inpt Care Lvl 3 Diagnoses Prinzmetal's angina I20.1 Acute non-ST elevation myocardial infarction (NSTEMI) I21.4 Mild mitral regurgitation I34.0 PVCs (premature ventricular contractions) I49.3
--- NOTE | 2020-10-13 18:53 | Billing Data ---
Date of Service October 13, 2020 Coding Level of Care Code 10618 Subseq Hosp Care Lvl 3
--- NOTE | 2020-10-13 20:32 | Billing Data ---
Date of Service October 13, 2020 Coding Level of Care Code 79786 Initial Inpt Care Lvl 3
[2020-10-13] MEDS ORDERED: amLODIPine BESYLATE 5 MG TAB PO SCH (21:00)
[2020-10-13] MEDS ORDERED: DULoxetine HCL 60 MG CAP PO SCH (21:00)
[2020-10-13] MEDS ORDERED: CHOLECALCIFEROL 1,000 UNITS 25 MCG TAB PO SCH (21:00)
[2020-10-13] MEDS ORDERED: valACYclovir HCL 500 MG TABLET PO SCH (21:00)
[2020-10-14] MEDS: LEVOTHYROXINE SODIUM 88 MCG TABLET PO SCH (05:54)
--- NOTE | 2020-10-14 06:43 | Hospitalist Progress Note ---
Date of Service October 14, 2020 Assessment & Plan Admission and Anticipated Discharge Date Admission Date: October 12, 2020 Results & Data Results & Data ([facility]) Vital Signs (Past 12 Hours) Vital Signs Temp Pulse Pulse Resp BP BP Pulse Ox 10/14/20 03:24 36.5 C 67 14 111/69 96 10/13/20 23:38 36.5 C 68 16 131/80 97 10/13/20 23:11 67 10/13/20 19:31 36.7 C 69 18 126/72 96
[2020-10-14] MEDS: CIMETIDINE 400 MG PO SCH (08:05)
[2020-10-14] MEDS: TOPIRAMATE 50 MG TAB PO SCH (08:05)
[2020-10-14] MEDS: PANTOprazole 40 MG TAB PO SCH (08:05)
[2020-10-14] MEDS: CYANOCOBALAMIN 500 MCG TABLET (VITAMIN B-12) PO SCH (08:05)
[2020-10-14] MEDS: GLUCOSAMINE SULFATE 500 MG CAP PO SCH (08:05)
[2020-10-14] MEDS: TOCOPHERYL, DL-ALPHA 400 UNITS 180 MG CAP PO SCH (08:05)
[2020-10-14] MEDS: LACTOBACILLUS ACIDOPHILUS 1 GM PACK PO SCH (08:05)
[2020-10-14 08:28] LABS: Hematocrit (blood only) 39.9 % (37-47); Mean Corpuscular Hemoglobin 33.5 pg (25-34); Mean Corpuscular Hgb Conc 32.6 g/dL (32-36); Mean Corpuscular Volume 102.8 fL (80-100); Mean Platelet Volume 10.8 fL (7.4-10.4); Platelet Count 264 K/uL (130-400); RDW Coefficient of Variation 13.6 % (11.5-14.5); RDW Standard Deviation 51.3 fL (36.4-46.3); Red Blood Count 3.88 M/uL (4.2-5.4); White Blood Count 5.62 K/uL (4.8-10.8)
[2020-10-14 08:37] LABS: Partial Thromboplastin Time 27.3 Seconds (21.0-31.0)
[2020-10-14] MEDS ORDERED: VERAPAMIL HCL 180 MG TABCR PO SCH (09:00)
[2020-10-14 09:10] LABS: BUN Creatinine Ratio 18.7 (10-20); Creatinine Clr Calc Pharmacy 52.8 ml/min; Est GFR (Non-African American) 72.5 ml/min; Potassium 4.1 mmol/L (3.5-5.1)
--- NOTE | 2020-10-14 13:19 | Discharge Summary ---
Date of Service October 14, 2020 Admission HPI Per Admitting Provider This is a 70-year-old female with a notable past medical history of Prinzmetal angina, hypercholesterolemia, eosinophilic fasciitis, CKD stage III, depression, anxiety, hypothyroidism, osteoarthritis who presented to [facility] for evaluation of chest pain. Patient says that she was folding laundry at approximately 1530 when she felt slow onset of a pressure radiating from the substernal area towards her left upper extremity. She says that this felt like her typical angina, however it was quite unusual for her to have it during the dayas it usually happens at night. Alongside this, she also endorsed feelings of palpitations happening at the same timealmost like her "heart was skipping a beat." She denies any shortness of breath during it. Denies any nausea or vomiting. She says that she took nitro x1 with good relief in the severity of the symptoms. She said, however, that the pain persisted until approximately 1930 before resolving. She denies any trauma to the chest. Denies any recent illness. She does state that over the last 3 weeks, there have been several stressful events which is left her somewhat on edge, but she feels she was otherwise within her normal health. She has been taking her medications as prescribed. She denies any history of smoking, alcohol, or recreational drug use. In the ED, patient was found to be hemodynamically stable with blood pressures ranging from 120-140 over 80s, pulse between 60 and 80s. Saturating appropriately on room air. Initial blood tests were significant for mild SUNITA, troponin I 0.88, ECG showing normal sinus rhythm with persistence of known right bundle branch block, but without acute repolarization or conduction abnormalities otherwise. Chest x-ray without acute processes. Given concern for acute coronary syndrome, patient was started on low-dose heparin with bolus. She did endorse mild palpitations while in the room. Admission Exam Per Admitting Provider General: Tired, but well-appearing 70-year-old female who is lying back in her hospital bed rocks upon my arrival. She is freely conversive. No acute distress. HEENT: NCAT. Eyes - Sclera are white, anicteric, and without injection. PERRL. EOMs display full ROM bilaterally. Mouth - MMM with no tonsillar edema or exudates. Cardiac: Normal rate and regular rhythm; S1 and S2 present with no murmurs, rubs, or gallops. No JVD. Pulmonary: Good respiratory effort with symmetric expansion of the chest. No use of accessory muscles. Lungs were clear to auscultation bilaterally with no crackles or wheezes. Abdominal: Normoactive bowel sounds. Abdomen was soft, nondistended, and non- tender to palpation. Extremities: Upper and lower extremities are warm and well perfused. Radial and dorsalis pedis pulses were 2+ b/l. Capillary refill assessed in UE was < 3 sec. Psych: Well-developed, well-nourished, appropriately dressed for occasion. Behavior is cooperative and appropriate. Affect is WNL. Insight is appropriate. Principal Diagnosis Prinzmetal angina Discharge Exam Constitutional WD/WN, vitals as above average body habitus, cooperative and comfortable Respiratory normal respiratory effort, lungs clear to auscultation Cardiovascular RRR, no murmur, no edema Gastrointestinal (Abdomen) normal bowel sounds, soft, nontender, no hepatosplenomegaly Psychiatric A+Ox3, euthymic affect Discharge Data Allergies Allergy/AdvReac Type Severity Reaction Status Date / Time Iodinated Contrast Media Allergy Severe anaphylaxis Verified 10/13/20 00:34 meloxicam Allergy Intermediate Unresponsiv Verified 10/13/20 00:34 e penicillamine Allergy Unknown RASH, Verified 10/13/20 00:34 lupus-like rx Sulfa (Sulfonamide Allergy Unknown Rash Verified 10/13/20 00:34 Antibiotics) alendronate sodium Allergy Unknown Verified 10/13/20 00:34 diltiazem Allergy Unknown Verified 10/13/20 00:34 hydroxyzine Allergy Nausea Verified 10/13/20 00:34 mirtazapine [From Remeron] Allergy Migraine Verified 10/13/20 00:34 venlafaxine [From Effexor] Allergy Dizziness Verified 10/13/20 00:34 NSAIDS (Non-Steroidal AdvReac Intermediate kidney Verified 10/13/20 00:34 Anti-Inflamma failure gabapentin AdvReac Unknown hallucinati Verified 09/06/20 11:26 ons Cuprimine CAPS Allergy Unknown Uncoded 09/06/20 11:26 Opioid Analgesics AdvReac Unknown gi Uncoded 09/06/20 11:26 intolerance Consultations 10/12/20 21:49 ED Decision to Admit Stat 10/13/20 01:31 Consult Cardiology Routine Hospital Course (1) Prinzmetal's angina: This is a 70-year-old female with a notable past medical history of Prinzmetal angina, atypical chest pain syndrome, hypercholesterolemia, eosinophilic fasciitis, CKD stage III, depression, anxiety, hypothyroidism, osteoarthritis who presented to [facility] for evaluation of chest pain relieved by nitroglycerin, subsequently found to have evidence of elevated troponins on arrival. 1) Chest Pain Patient reporting substernal chest pain that radiated to her left shoulder, was relieved by nitro, that lasted for approximately 4 hours while folding laundry. Upon arrival, patient was found to have elevated troponins. ECG demonstrating persistence of right bundle branch block but has been visualized on EKGs back to 2019, but otherwise no major acute repolarization or conduction abnormalities. Cardiac cath in 2019 unremarkable. Cardiology has determined this episode an NSTEMI. Echo showed EF 60-65%, grade 1 diastolic dysfunction, LA dilation. Stress test was negative. Her symptoms were determined to be a continuation of her Prinzmetal Angina. 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 She should follow her PCP after her hospitalization. 2) Migraines: Continue home medications 3) Anxiety: Continue home medications 4) Eosinophilic fasciitis: Patient not currently taking methotrexate or prednisone (2) Hypercholesterolemia: (3) Atypical chest pain: (4) NSTEMI (non-ST elevated myocardial infarction): (5) Hypokalemia: (6) Acute non-ST elevation myocardial infarction (NSTEMI): (7) Chest pain: (8) Cystocele: (9) Encounter for pre-operative examination: (10) History of cardiac catheterization: (11) Eosinophilic fasciitis: (12) History of shingles: (13) History of appendectomy: (14) CKD (chronic kidney disease), stage III: (15) Migraine: (16) History of angina: (17) Depression: (18) Anxiety: (19) Hypothyroidism: Total Time Total Time Spent Total Time Spent (In Minutes): <30 Discharge Plan Discharge Items Patient Disposition: Home - Self-Care Reason For Visit: CP Discharge Diagnosis: prinzmetal's (vasospastic) angina Activity: Resume your previous activity Non-emergency contact: Primary Care Provider Call non-emergency contact if: you have any medication questions and your symptoms worsen Follow-up/Referrals: Obdulia Larsen MD [Primary Care Provider] - 10/19/20 10:50 am Diet: Regular Addtl Attending Provider Instructions: prinzmetal's angina (coronary vasospasm) -your chest pain was due to another episode of spasm of your coronary arteries -- this led to a temporary lack of blood flow to your heart muscle. unfortunately there was a small rise in troponin levels (a blood test to look at strain or damage to the heart muscle) but fortunately that rise stayed small, and more importantly your echocardiogram and stress echocardiogram both show good heart function, so you're not walking away from this with any lasting damage -since you were already on amlodipine to try to prevent vasospasm, and higher doses make you too lightheaded, and obviously the current dose wasn't quite enough - we'll be switching you over to a different calcium channel annemarie medicine called verapamil. typically people tolerate it really well, and we're starting you at the lowest dose of the long acting medicine. if it causes side effects, it would be most likely to be that you feel lightheaded or dizzy (kind of like when you were on the higher dosing of the amlodipine), or just feel a pervasive fatigue (if it's making your heartrates too slow) -- if either of those side effects happen in the next few days, as long as they're tolerable try to give it a week or so - a lot of the time if someone gets those side effects at the start they go away pretty quickly. also if you feel things at all, switching it from day time to bedtime would be reasonable to see if you sleep through any period of feeling fatigued or weak from the medication. however, if the side effects happen and are either too intense or don't go away, then talk w dr larsen and dr maldonado about shuffling to other possible medicines like beta blockers. but again, most people tolerate this medicine really well. Pending Studies at Discharge: No Stand-Alone Forms: [facility], Smoking Cessation Medications and DC Order Prescriptions: New verapamil 180 mg Tablet Extended Release 180 mg PO QAM Qty: 30 RF: 0 Continued nitroglycerin 0.4 mg tablet, sublingual See Rx Instructions .ROUTE .COMPLEX Qty: 75 RF: 3 cyanocobalamin (vitamin B-12) 1,000 mcg capsule 1,000 mcg PO DAILY RF: 0 valacyclovir 500 mg tablet 500 mg PO HS RF: 0 cimetidine 400 mg tablet 400 mg PO TID RF: 0 sumatriptan succinate [Imitrex] 100 mg Tablet 0 mg PO DIRECTED PRN (Reason: Migraine Headache) RF: 0 glucosamine sulfate 500 mg Capsule 500 mg PO TID RF: 0 vitamin E 400 unit Capsule 400 unit PO QAM RF: 0 vitamins-lipotropics Tablet 1 tab PO BID RF: 0 topiramate 100 mg tablet 100 mg PO BID RF: 0 lorazepam [Ativan] 0.5 mg tablet 0.5 mg PO BID PRN (Reason: anxiety) Qty: 14 RF: 0 levothyroxine 88 mcg Tablet 88 mcg PO QAM RF: 0 pantoprazole 20 mg tablet,delayed release (DR/EC) 40 mg PO QAM RF: 0 duloxetine 60 mg capsule,delayed release(DR/EC) 60 mg PO QPM RF: 0 Probiotic 10 billion cell Capsule 1.75 cell PO QAM RF: 0 cholecalciferol (vitamin D3) 50 mcg (2,000 unit) Tablet 50 mcg PO QPM RF: 0 estradiol 0.01 % (0.1 mg/gram) cream 1 g vaginal .COMPLEX PRN (Reason: Vaginal Dryness) RF: 0 zinc sulfate 50 mg zinc (220 mg) Tablet 0 mg PO QPM RF: 0 biotin 1,000 mcg Tablet,Chewable 1,000 mcg PO DAILY RF: 0 Macular Health Formula 5-1-7.5 mg Capsule 1 cap PO QAM RF: 0 Discontinued amlodipine 2.5 mg tablet 2.5 mg PO QPM Qty: 90 RF: 3 Discharge Orders: Discharge Order (Routine); Ordered 10/14/20 Ordered By: Abhishek Mcgovern/Other Patient Handouts: Exercise for a Healthier Heart, Eating Heart- Healthy Foods Admission Data Admit Date/Time: 10/12/20 23:28 Attending Provider: Abhishek Young Admit Provider: Abhishek Mueller Primary Care Provider: Obdulia Larsen Other Providers: Sudarshan Ramos ; Jeff Arthur ; Frank Godoy ; Maxime Maldonado ; Timi Romero ; Alfonso Fenton ; Jeovany Dill Jr ; Emmett Bah ; Ena Cui ; Sonia Garnett ; Darrick Barton ; Darrick Zeng ; Fermin Farr ; Talha Park ; Coco Jain ; Luis Montanez ; Abner Galindo ; Victor Hugo Dawson Other Interventions: Discharge Summary Assessment (RN) Last Done: 10/14/20 10:55 Supervising Physician Co-Signing Physician Notes I personally examined the patient and verified all coon points of history and exam, discussed case, and agree with decision making with Dr Doe. Feels good, wants to go home. Did well on treadmill. Vitals noted, in general she is awake and alert pleasant no distress. HEENT normocephalic atraumatic mucous membranes moist. Breathing unlabored no accessory muscle use good effort. Skin shows no rashes no pallor or icterus. Prinzmetal's angina/vasospastic NSTEMIfortunately mild, asymptomatic now. Switched from amlodipine to verapamil. Stress test to assess exercise tolerance/tolerability was very reassuring. Tolerating verapamil well. Stable for home. Otherwise as above/per discharge instructions. Resident Activity Tracking Resident Involvement: Resident Care Provided Care Provided: Adult Hospital Medicine
--- NOTE | 2020-10-14 14:27 | XCELERA ---
[id number]
--- NOTE | 2020-10-14 18:18 | Billing Data ---
Date of Service October 14, 2020 Coding Level of Care Code D/C DAY MANAGEMENT <30 MINS
== END 2020-10-14 11:20 | disposition home or self-care (01) | DRG 282 ==
LOC: ED 20:41 → SUATTDRO 23:28 → 2S 23:28

== ENCOUNTER 2022-09-15 20:53 | Inpatient (IN) ==
[2022-09-15] MEDS ORDERED: NITROGLYCERIN SL 0.4 MG/TAB TAB SL PRN (21:20)
[2022-09-15 21:39] LABS: Basophils # (auto) 0.13 K/uL (0-0.2); Basophils % (auto) 1.8 %; Eosinophils # (auto) 0.43 K/uL (0-0.50); Hemoglobin 13.3 g/dl (12.0-16.0); Immature Granulocytes # (auto) 0.02 K/uL (0.01-0.20); Immature Granulocytes % (auto) 0.3 %; Lymphocytes # (auto) 2.17 K/uL (1.2-3.4); Lymphocytes % (auto) 30.3 %; Mean Corpuscular Hemoglobin 33.6 pg (25.0-34.0); Mean Corpuscular Hgb Conc 33.3 g/dL (32.0-36.0); Mean Platelet Volume 10.9 fL (9.4-12.4); Monocytes # (auto) 0.82 K/uL (0.11-0.59); Monocytes % (auto) 11.5 %; Neutrophils # (auto) 3.58 K/uL (1.40-6.50); Neutrophils % (auto) 50.1 %; Platelet Count 267 K/uL (130-400); RDW Coefficient of Variation 12.4 % (11.5-14.5); RDW Standard Deviation 46.5 fL (36.4-46.3); Red Blood Count 3.96 M/uL (4.20-5.40); White Blood Count 7.15 K/ul (4.8-10.8)
--- NOTE | 2022-09-15 21:49 | Emergency Department Note ---
Impression & Plan Acute shoulder pain, Prinzmetal's angina, Nausea ED Provider Note INFORMANT: Patient ED PROVIDER(S): Freddie Waite MD CHIEF COMPLAINT: Shoulder pain PLAN: Disposition: Admitted Condition: Good Outpatient prescription management: none Referral: None MEDICAL DECISION MAKING: Patient presented because of right shoulder pain. She has a history of Prinzmetal angina. Her ECG was abnormal but unchanged from prior. Chest x-ray was unremarkable. Blood work did not reveal any acute findings regarding her CBC and chemistry panel. Patient's troponin was elevated. This is concerning due to the patient's pain and nausea that she had yesterday. Patient does have a history of non-ST elevation MT. Patient states she cannot take aspirin. She was given Nitropaste. She is pain-free at this time. Further management in the hospital will be necessary. Consultation was made with Dr. Sudarshan Ramos of the [facility] service. Patient was evaluated in the ER for further management. Discussed with manager group After review of the information above and other included data, I feel the patient requires admission. Triage Nursing notes reviewed and agree them. Vital Signs: reviewed and remarkable for no significant abnormalities Prior /Outside records reviewed: Prior admissions and cardiac consultations reviewed. Patient has Prinzmetal angina. Had troponin elevations consistent with non-STEMI. Differential diagnosis: Coronary vasospasm, Cardiac ischemia, aortic dissection, pulmonary embolism, pneumothorax, pneumonia, pericarditis, myocarditis, esophageal rupture, GERD, cholecystitis, pancreatitis, musculoskeletal, as well as other pathologies. Diagnostics, as interpreted by me: ECG: Twelve-lead ECG reveals a normal sinus rhythm at 74 bpm. Left atrial enlargement. Right bundle branch block. Left anterior fascicular block. Lateral T wave flattening and anterior T wave inversion. When compared to 13 October 2020 there is no change. Cardiac Monitoring: Cardiac monitoring ordered by me: The patient was placed on continuous cardiac monitoring and observed. It revealed a normal sinus rhythm at 71 beats per minute without ectopy or evidence of dysrhythmia. Medical decision rules: none Imaging studies: Chest x-ray. Findings: A chest x-ray was performed and revealed no pneumothorax, effusion, infiltrate, pulmonary edema, free air under the diaphragm, or wide mediastinum. Impression: No acute disease. HPI: The patient is a 72year old female with past medical history of Prinzmetal angina who presents to the Emergency Room with complaints of shoulder pain and neck pain. This started 1 week ago and then occurred again yesterday all day and is currently resolved. The patient also notes the following associated symptoms, nausea. Patient was concerned as she has a history of Prinzmetal angina. The patient has taken no medication for relieving factors. Current pain is rated as 0/10. Pt denies LOC, headache, fevers, chills, diaphoresis, visual changes, chest pain, breathing difficulties, vomiting, abdominal pain, back pain, melena, hematochezia, urinary symptoms, numbness, weakness, lymphadenopathy, rash, or other complaints. PAST MEDICAL HISTORY: See Below, Prinzmetal angina, non-ST elevation MT PAST SURGICAL HISTORY: See Below, SOCIAL HISTORY: See Below, HOME MEDICATIONS: See Below ALLERGIES: See Below VITALS: See Below PHYSICAL EXAMINATION: GENERAL: Awake, alert, well-appearing, in no distress HENT: Normocephalic, atraumatic. Oropharynx unremarkable. EYES: Normal conjunctiva. Sclera non-icteric. NECK: Inspection normal. Non-tender. Supple. No nuchal rigidity. FROM. No masses. RESPIRATORY: Clear to auscultation. No wheezes. No rales. Normal respiratory effort. CARDIAC: Normal rate. Normal rhythm. No murmurs. No rubs. Extremities warm and well perfused. Pulses equal. No JVD. GI: Soft, non-distended. No tenderness to palpation. No rebound or guarding. No masses. RECTAL: Deferred. MUSCULOSKELETAL: Atraumatic. Chest examination reveals no tenderness. The back is symmetrical on inspection without obvious abnormality. There is no CVA tenderness to palpation. No joint edema. LOWER EXTREMITIES: Calves are equal size bilaterally and non-tender. No edema. No discoloration. NEURO: Normal sensorium. No sensory or motor deficits noted. SKIN: No rash or jaundice noted. Past Med/Surg History Medical History Anxiety CKD (chronic kidney disease), stage III due to NSAID use- FOLLOWS WITH PCP, DR. 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 History of appendectomy History of cardiac catheterization SEPTEMBER 2018- [facility]- NO STENTS- "EVERYTHING CLEAN PER PATIENT" FOLLOWS WITH DR. JIMENEZ History of colonoscopy History of eye surgery AGE 2 History of left cataract surgery History of surgery repair of left femur fx/hardware. Family History Mother Dementia, Onset Age: 100 Family/Other Myocardial infarction Other Family history of diabetes mellitus in father No pertinent family history Denies family history of Ovarian cancer Prostate cancer Breast cancer Colorectal cancer Social History (Updated 10/10/21 @ 10:08 by Mulu Hamilton MD) Smoking Status: Never smoker Second Hand Exposure: No; Do You Dip or Chew Tobacco: No; Hx Alcohol Use: No Hx Substance Use: No Preferred Language: Sierra Leonean Communication Ability: Effective Vp Scientific Required: No Beliefs That Will Affect Care: None Current Living Situation: Alone Current Living Situation Comment: Daughter (sveta) moved to [place] How many Children do You have: 2 Feels Safe at Home: Yes Assistive Devices: Glasses Allergies Allergies Allergy/AdvReac Type Severity Reaction Status Date / Time Iodinated Contrast Media Allergy Severe anaphylaxis Verified 08/27/22 12:03 meloxicam Allergy Severe Unresponsiv Verified 08/27/22 12:03 e diltiazem Allergy Unknown PT CAN'T Verified 08/27/22 12:03 REMEMBER RXN. ? NOT EFFECTIVE. penicillamine Allergy Unknown RASH, Verified 08/27/22 12:03 lupus-like rx Sulfa (Sulfonamide Allergy Unknown Rash Verified 08/27/22 12:03 Antibiotics) alendronate sodium AdvReac Unknown WASN'T Verified 08/27/22 12:03 EFFECTIVE gabapentin AdvReac Unknown hallucinati Verified 08/27/22 12:03 ons hydroxyzine AdvReac Unknown Nausea/DIZZ Verified 08/27/22 12:03 Y. mirtazapine [From Remeron] AdvReac Unknown Migraines/very Verified 08/27/22 12:03 lucid horrible dreams. NSAIDS (Non-Steroidal AdvReac Unknown WAS ON Verified 08/27/22 12:03 Anti-Inflamma HIGH DOSES CAUSED KIDNEY DAMAGE. venlafaxine [From Effexor] AdvReac Unknown Dizziness Verified 08/27/22 12:03 Cuprimine CAPS Allergy Unknown PT DOESN'T Uncoded 08/27/22 12:03 REMEMBER RX. Opioid Analgesics AdvReac Unknown N/V. Uncoded 08/27/22 12:03 Home Meds Home Medications Medication Instructions Recorded Confirmed glucosamine sulfate 500 mg capsule 500 mg PO TID 03/08/18 09/15/22 sumatriptan succinate 100 mg 100 mg PO DIRECTED PRN Migraine 03/08/18 09/15/22 tablet (Imitrex) Headache vitamin E 268 mg (400 unit) capsule 400 unit PO QAM 03/08/18 09/15/22 levothyroxine 88 mcg tablet 88 mcg PO DAILYBB 10/18/18 09/15/22 valacyclovir 500 mg tablet 500 mg PO HS 11/18/18 09/15/22 Lactobacillus acidophilus 10 1.75 cell PO QAM 11/28/18 09/15/22 billion cell capsule (Probiotic) cyanocobalamin (vitamin B-12) 1,000 mcg PO QDL 03/08/20 09/15/22 1,000 mcg capsule cimetidine 400 mg tablet 400 mg PO TID 09/06/20 09/15/22 topiramate 100 mg tablet 100 mg PO AMHS 09/06/20 09/15/22 biotin 1,000 mcg chewable tablet 1,000 mcg PO QDL 10/13/20 09/15/22 cholecalciferol (vitamin D3) 50 50 mcg PO QDD 10/13/20 09/15/22 mcg (2,000 unit) tablet lorazepam 0.5 mg tablet (Ativan) 0.5 mg PO HS PRN anxiety 04/19/21 09/15/22 calcium citrate 250 mg 1 tab PO TID 07/29/21 09/15/22 calcium-vitamin D3 5 mcg (200 unit) tablet duloxetine 60 mg capsule,delayed 90 mg PO QDD 02/14/22 09/15/22 release amlodipine 2.5 mg tablet 2.5 mg PO QPM 08/03/22 09/15/22 denosumab 60 mg/mL subcutaneous 60 mg subcut UD 08/03/22 09/15/22 syringe (Prolia) nitroglycerin 0.4 mg sublingual 0.4 mg sublingual UD PRN Chest Pain 08/03/22 09/15/22 tablet vit C 250 mg-vit E 90 mg-zinc 40 1 tab PO BID 08/03/22 09/15/22 mg-copper 1 [id number] capsule (PreserVision AREDS-2) ascorbic acid (vitamin C) 1,000 mg 1 g PO QDD 09/15/22 09/15/22 tablet (Vitamin C) pantoprazole 40 mg tablet,delayed 40 mg PO QAM 09/15/22 09/15/22 release vitamins-lipotropics tablet 1 tab PO BID 09/15/22 09/15/22 Previous Rx's Medication Instructions Recorded estradiol 0.01% (0.1 mg/gram) 1 g vaginal DAILY PRN Vaginal 09/12/22 vaginal cream Dryness #42.5 grams Results & Data (ED) Vital Signs Vital Signs - 24 hr 09/15/22 20:58 09/15/22 21:20 09/15/22 21:20 Temperature 36.9 C Temperature Source Temporal Artery Scan Pulse Rate 83 71 Pulse Rate [Apical] 74 Pulse Rate from SpO2 Sensor Pulse Rhythm Regular Pulse Rhythm [Apical] Regular Pulse Strength [Apical] Normal Respiratory Rate 16 18 18 Respiratory Effort / Characteristics Non-Labored Spontaneous Respiratory Depth Normal Respiratory Pattern Blood Pressure 150/95 H Blood Pressure [Right Arm] 135/83 Blood Pressure Mean 113 Blood Pressure Mean [Right Arm] 100 Pulse Oximetry 95 98 98 Oxygen Delivery Method Room Air Room Air Room Air Sepsis Recent Fever Within 48 Hours No Sepsis New/Unexplained Change in Mental Status No Sepsis Action Taken by Nursing No Action Required 09/15/22 22:33 09/15/22 23:12 09/15/22 23:12 Temperature Temperature Source Pulse Rate 76 Pulse Rate [Apical] 71 Pulse Rate from SpO2 Sensor Pulse Rhythm Pulse Rhythm [Apical] Regular Pulse Strength [Apical] Normal Respiratory Rate 19 20 Respiratory Effort / Characteristics Non-Labored Respiratory Depth Normal Respiratory Pattern Regular Blood Pressure 141/70 H Blood Pressure [Right Arm] 135/83 Blood Pressure Mean 100 Blood Pressure Mean [Right Arm] 100 Pulse Oximetry 98 Oxygen Delivery Method Sepsis Recent Fever Within 48 Hours Sepsis New/Unexplained Change in Mental Status Sepsis Action Taken by Nursing 09/15/22 23:00 09/16/22 00:11 09/16/22 00:11 Temperature Temperature Source Pulse Rate 68 66 Pulse Rate [Apical] Pulse Rate from SpO2 Sensor Pulse Rhythm Pulse Rhythm [Apical] Pulse Strength [Apical] Respiratory Rate 18 Respiratory Effort / Characteristics Respiratory Depth Respiratory Pattern Blood Pressure 132/96 Blood Pressure [Right Arm] Blood Pressure Mean 105 Blood Pressure Mean [Right Arm] Pulse Oximetry Oxygen Delivery Method Sepsis Recent Fever Within 48 Hours Sepsis New/Unexplained Change in Mental Status Sepsis Action Taken by Nursing 09/16/22 00:30 09/16/22 01:00 09/16/22 01:30 Temperature Temperature Source Pulse Rate 67 76 83 Pulse Rate [Apical] Pulse Rate from SpO2 Sensor 66 Pulse Rhythm Pulse Rhythm [Apical] Pulse Strength [Apical] Respiratory Rate 17 15 22 Respiratory Effort / Characteristics Respiratory Depth Respiratory Pattern Blood Pressure Blood Pressure [Right Arm] Blood Pressure Mean Blood Pressure Mean [Right Arm] Pulse Oximetry 96 Oxygen Delivery Method Room Air Sepsis Recent Fever Within 48 Hours Sepsis New/Unexplained Change in Mental Status Sepsis Action Taken by Nursing Laboratory Data 09/15/22 21:18 09/15/22 21:18 Lab Results 09/15/22 09/15/22 09/15/22 Range/Units 21:18 21:18 21:18 WBC 7.15 (4.8-10.8) K/ul RBC 3.96 L (4.20-5.40) M/uL Hgb 13.3 (12.0-16.0) g/dl Hct 40.0 (37.0-47.0) % MCV 101.0 H (80.0-100.0) fL MCH 33.6 (25.0-34.0) pg MCHC 33.3 (32.0-36.0) g/dL RDW Std Deviation 46.5 H (36.4-46.3) fL RDW Coeff of Edmar 12.4 (11.5-14.5) % Plt Count 267 (130-400) K/uL MPV 10.9 (9.4-12.4) fL Immature Gran % (Auto) 0.3 % Neut % (Auto) 50.1 % Lymph % (Auto) 30.3 % [place] % (Auto) 11.5 % Eos % (Auto) 6.0 % Baso % (Auto) 1.8 % Neut # (Auto) 3.58 (1.40-6.50) K/uL Lymph # (Auto) 2.17 (1.2-3.4) K/uL [place] # (Auto) 0.82 H (0.11-0.59) K/uL Eos # (Auto) 0.43 (0-0.50) K/uL Baso # (Auto) 0.13 (0-0.2) K/uL Immature Gran # (Auto) 0.02 (0.01-0.20) K/uL PT 10.3 (9.0-12.0) Seconds INR 0.9 (0.9-1.1) APTT 26.6 (21.0-31.0) Seconds PTT Ratio 0.9 Sodium 138 (136-145) mmol/L Potassium 3.9 (3.5-5.1) mmol/L Chloride 109 H (98-107) mmol/L Carbon Dioxide 23 (21-32) mmol/L Anion Gap 6 (3-11) BUN 21 (6-23) mg/dl Creatinine 1.15 (0.6-1.2) mg/dl Est Cr Clr Drug Dosing 36.6 ml/min Est GFR ( Amer) 55.0 ml/min Est GFR (Non-Af Amer) 47.5 ml/min BUN/Creatinine Ratio 18.3 (10-20) Glucose 105 H (70-99(Fasting)) mg/dl Calcium 10.2 (8.6-10.3) mg/dl Total Bilirubin 0.3 (0.2-1.0) mg/dl AST 18 (13-39) U/L ALT 8 (7-52) U/L Alkaline Phosphatase 73 (34-104) U/L Troponin I High Sens 631.4 H* (0-14) pg/ml Total Protein 7.1 (6.0-8.3) gm/dl Albumin 4.1 (3.4-5.0) gm/dl Globulin 3.0 (2.5-4.0) gm/dl Albumin/Globulin Ratio 1.4 (0.9-2) Lipase 38 (11-82) U/L SARS-CoV-2, RNA, NAAT (NEGATIVE) 09/15/22 09/16/22 Range/Units 21:28 00:08 WBC (4.8-10.8) K/ul RBC (4.20-5.40) M/uL Hgb (12.0-16.0) g/dl Hct (37.0-47.0) % MCV (80.0-100.0) fL MCH (25.0-34.0) pg MCHC (32.0-36.0) g/dL RDW Std Deviation (36.4-46.3) fL RDW Coeff of [place] (11.5-14.5) % Plt Count (130-400) K/uL MPV (9.4-12.4) fL Immature Gran % (Auto) % Neut % (Auto) % Lymph % (Auto) % [place] % (Auto) % Eos % (Auto) % Baso % (Auto) % Neut # (Auto) (1.40-6.50) K/uL Lymph # (Auto) (1.2-3.4) K/uL [place] # (Auto) (0.11-0.59) K/uL Eos # (Auto) (0-0.50) K/uL Baso # (Auto) (0-0.2) K/uL Immature Gran # (Auto) (0.01-0.20) K/uL PT (9.0-12.0) Seconds INR (0.9-1.1) APTT (21.0-31.0) Seconds PTT Ratio Sodium (136-145) mmol/L Potassium (3.5-5.1) mmol/L Chloride (98-107) mmol/L Carbon Dioxide (21-32) mmol/L Anion Gap (3-11) BUN (6-23) mg/dl Creatinine (0.6-1.2) mg/dl Est Cr Clr Drug Dosing ml/min Est GFR ( Amer) ml/min Est GFR (Non-Af Amer) ml/min BUN/Creatinine Ratio (10-20) Glucose (70-99(Fasting)) mg/dl Calcium (8.6-10.3) mg/dl Total Bilirubin (0.2-1.0) mg/dl AST (13-39) U/L ALT (7-52) U/L Alkaline Phosphatase (34-104) U/L Troponin I High Sens 642.2 H* (0-14) pg/ml Total Protein (6.0-8.3) gm/dl Albumin (3.4-5.0) gm/dl Globulin (2.5-4.0) gm/dl Albumin/Globulin Ratio (0.9-2) Lipase (11-82) U/L SARS-CoV-2, RNA, NAAT NEGATIVE (NEGATIVE) Administered Medications Sodium Chloride (Nss 1000ml) 1,000 mls @ 100 mls/hr IV .Q10H BERTRAND Stop: 10/16/22 00:59 Last Admin: 09/16/22 01:11 Dose: 100 mls/hr Documented By: Heparin Sodium/Dextrose (Heparin Sodium/Dextrose) 25,000 units in 500 mls @ 13 mls/hr IV .Q24H BERTRAND; Protocol Stop: 10/16/22 01:14 Last Admin: 09/16/22 01:46 Dose: 650 units/hr, 13 mls/hr Documented By: Co-signed By: BERTA Discontinued Medications Aspirin (Aspirin 81 Mg Ectab) 81 mg PO NOW STA Stop: 09/16/22 00:34 Last Admin: 09/16/22 01:06 Dose: 81 mg Documented By: Nitroglycerin (Nitroglycerin 2% Ointment 30gm Tube) 0.5 inch EXT NOW STA Stop: 09/15/22 22:22 Last Admin: 09/15/22 22:30 Dose: 0.5 inch Documented By: HNNina Discharge Plan Visit Data Chief Complaint: Shoulder Pain Stated Complaint: ARTERIAL VASOCONSTRICTION - NECK/SHOULDER PAIN ED Provider: Freddie Waite Discharge Problem: Acute shoulder pain, Prinzmetal's angina, Nausea Forms Stand Alone Forms: My Monitor Prescriptions Prescriptions: No Action estradiol 0.01 % (0.1 mg/gram) cream 1 g vaginal DAILY PRN (Reason: Vaginal Dryness) Qty: 42.5 2RF Rx Instructions: use with pessary cleaning cyanocobalamin (vitamin B-12) 1,000 mcg capsule 1,000 mcg PO QDL lorazepam [Ativan] 0.5 mg tablet 0.5 mg PO HS PRN (Reason: anxiety) valacyclovir 500 mg tablet 500 mg PO HS cimetidine 400 mg tablet 400 mg PO TID Rx Instructions: administer with meals sumatriptan succinate [Imitrex] 100 mg Tablet 100 mg PO DIRECTED PRN (Reason: Migraine Headache) glucosamine sulfate 500 mg Capsule 500 mg PO TID vitamin E 400 unit Capsule 400 unit PO QAM topiramate 100 mg tablet 100 mg PO AMHS levothyroxine 88 mcg Tablet 88 mcg PO DAILYBB duloxetine 60 mg capsule,delayed release(DR/EC) 90 mg PO QDD Probiotic 10 billion cell Capsule 1.75 cell PO QAM Patient Comments: allign gummies pre and probiotic / dual. cholecalciferol (vitamin D3) 50 mcg (2,000 unit) Tablet 50 mcg PO QDD biotin 1,000 mcg Tablet,Chewable 1,000 mcg PO QDL Rx Instructions: TAKE WITH LUNCH calcium citrate-vitamin D3 250 mg-5 mcg (200 unit) Tablet 1 tab PO TID PreserVision AREDS-2 250-90-40-1 mg Capsule 1 tab PO BID amlodipine 2.5 mg tablet 2.5 mg PO QPM nitroglycerin 0.4 mg tablet, sublingual 0.4 mg sublingual UD PRN (Reason: Chest Pain) Rx Instructions: TAKE UNDER TONGUE NEEDED DIRECTED BY THE PHYSCIAN Prolia 60 mg/mL Syringe 60 mg SUBCUT UD Patient Comments: every 6 mon. next dose due september 2022. ascorbic acid (vitamin C) [Vitamin C] 1,000 mg Tablet 1 g PO QDD Lipoflavonoid Tablet 1 tab PO BID pantoprazole 40 mg Tablet,Delayed Release (Dr/Ec) 40 mg PO QAM Referrals Referrals: Seth Harrison MD [Primary Care Provider] -
[2022-09-15 21:52] LABS: Albumin Globulin Ratio 1.4 (0.9-2); Albumin Level 4.1 gm/dl (3.4-5.0); BUN Creatinine Ratio 18.3 (10-20); Bilirubin,Total 0.3 mg/dl (0.2-1.0); Calcium 10.2 mg/dl (8.6-10.3); Creatinine Clr Calc Pharmacy 36.6 ml/min; Est GFR (Non-African American) 47.5 ml/min; Potassium 3.9 mmol/L (3.5-5.1); Total Protein 7.1 gm/dl (6.0-8.3)
[2022-09-15 22:04] LABS: INR 0.9 (0.9-1.1); Partial Thromboplastin Ratio 0.9; Partial Thromboplastin Time 26.6 Seconds (21.0-31.0); Prothrombin Time 10.3 Seconds (9.0-12.0)
[2022-09-15 22:08] LABS: Troponin I High Sensitivity 631.4 pg/ml (0-14)
[2022-09-15] MEDS ORDERED: NITROGLYCERIN 2% OINTMENT 30GM TUBE EXT STA (22:21)
[2022-09-16] MEDS ORDERED: ASPIRIN 81 MG ECTAB PO STA (00:33)
[2022-09-16] MEDS ORDERED: ONDANSETRON INJ 2 MG/ML 2 ML VIAL IV PRN (00:42)
[2022-09-16] MEDS ORDERED: NITROGLYCERIN SL 0.4 MG/TAB TAB SL PRN (00:42)
[2022-09-16] MEDS ORDERED: SODIUM CHLORIDE 0.9% 1000ML 1,000 ML IV SCH (01:00)
[2022-09-16] MEDS ORDERED: Heparin IV Adult Wt-Based Low-Dose *NO* Bolus Protocol IV SCH (01:05)
[2022-09-16] MEDS ORDERED: HEPARIN SODIUM/DEXTROSE 25,000 UNITS/500 ML BAG IV SCH (01:15)
--- NOTE | 2022-09-16 01:21 | History & Physical Report ---
Date of Service September 16, 2022 Assessment & Plan (1) Atypical chest pain: Plan: 72 yo female with PMHx of prinzmetal angina, CKD, GERD, HTN, anxiety, depression, hypothyroidism, and migraines presents with atypical chest pain. #Atypical Chest Pain #Elevated troponin #H/o Prinzmetal angina -2 days of atypical symptoms including pain in L arm/jaw and nausea. Resolved after ED evaluation. -High sensitivity troponin 631, trend. It appears when she had previous Pr inzmetal anginal symptoms in 2020 her troponin (old scale) at that time was 1.8. -Aspirin 81mg given. Did not give full 324mg dose due to pt concerns of kidney history. -heparin gtt -echo ordered -lipid panel, a1c pending. -cardiology consulted #GERD -IV protonix -cont. cimetidine when able #HTN -cont. amlodipine when able #Migraines -cont. topamax when able #Anxiety #Depression -cont. cymbalta when able #Hypothyroidism -cont. Synthroid when able DVT ppx: heparin gtt FEN/GI: NPO Code Status: DNI only Dispo: PCU (2) Prinzmetal's angina: (3) Nausea: (4) Vaginal erosion: (5) PVCs (premature ventricular contractions): (6) CKD (chronic kidney disease): (7) GERD (gastroesophageal reflux disease): (8) Anxiety and depression: (9) Hypertension: History of Present Illness Chief Complaint: nausea, L arm/jaw pain Primary Care Provider: Seth Harrison MD 72 yo female with PMHx of prinzmetal angina, CKD, GERD, HTN, anxiety, depression, hypothyroidism, and migraines presents with atypical chest pain. Last week patient had a few hours of pain in her left arm radiating to her left jaw which self resolved on its own. 2 days ago she began experiencing the same symptoms except this time with nausea which was persistent for more than a day and prompted her to come to the ED for evaluation. When seen at bedside she stated her symptoms had resolved. Denies headache, chest pain, shortness of breath, abdominal pain, constipation, diarrhea, vomiting, dysuria. She does have a history of Prinzmetal angina and follows with [facility] cardiology. She was last seen in June and was reassured things looked well. She states she had not had any atypical chest pain symptoms for years until last week. It appears her last echo was back in 2020 and last catheterization was back in 2019. Allergies Allergy/AdvReac Type Severity Reaction Status Date / Time Iodinated Contrast Media Allergy Severe anaphylaxis Verified 08/27/22 12:03 meloxicam Allergy Severe Unresponsiv Verified 08/27/22 12:03 e diltiazem Allergy Unknown PT CAN'T Verified 08/27/22 12:03 REMEMBER RXN. ? NOT EFFECTIVE. penicillamine Allergy Unknown RASH, Verified 08/27/22 12:03 lupus-like rx Sulfa (Sulfonamide Allergy Unknown Rash Verified 08/27/22 12:03 Antibiotics) alendronate sodium AdvReac Unknown WASN'T Verified 08/27/22 12:03 EFFECTIVE gabapentin AdvReac Unknown hallucinati Verified 08/27/22 12:03 ons hydroxyzine AdvReac Unknown Nausea/DIZZ Verified 08/27/22 12:03 Y. mirtazapine [From Remeron] AdvReac Unknown Migraines/very Verified 08/27/22 12:03 lucid horrible dreams. NSAIDS (Non-Steroidal AdvReac Unknown WAS ON Verified 08/27/22 12:03 Anti-Inflamma HIGH DOSES CAUSED KIDNEY DAMAGE. venlafaxine [From Effexor] AdvReac Unknown Dizziness Verified 08/27/22 12:03 Cuprimine CAPS Allergy Unknown PT DOESN'T Uncoded 08/27/22 12:03 REMEMBER RX. Opioid Analgesics AdvReac Unknown N/V. Uncoded 08/27/22 12:03 Home Medications Medication Instructions Recorded Confirmed Type glucosamine sulfate 500 mg capsule 500 mg PO TID 03/08/18 09/15/22 History sumatriptan succinate 100 mg 100 mg PO DIRECTED PRN Migraine 03/08/18 09/15/22 History tablet (Imitrex) Headache vitamin E 268 mg (400 unit) capsule 400 unit PO QAM 03/08/18 09/15/22 History levothyroxine 88 mcg tablet 88 mcg PO DAILYBB 10/18/18 09/15/22 History valacyclovir 500 mg tablet 500 mg PO HS 11/18/18 09/15/22 History Lactobacillus acidophilus 10 1.75 cell PO QAM 11/28/18 09/15/22 History billion cell capsule (Probiotic) cyanocobalamin (vitamin B-12) 1,000 mcg PO QDL 03/08/20 09/15/22 History 1,000 mcg capsule cimetidine 400 mg tablet 400 mg PO TID 09/06/20 09/15/22 History topiramate 100 mg tablet 100 mg PO AMHS 09/06/20 09/15/22 History biotin 1,000 mcg chewable tablet 1,000 mcg PO QDL 10/13/20 09/15/22 History cholecalciferol (vitamin D3) 50 50 mcg PO QDD 10/13/20 09/15/22 History mcg (2,000 unit) tablet lorazepam 0.5 mg tablet (Ativan) 0.5 mg PO HS PRN anxiety 04/19/21 09/15/22 History calcium citrate 250 mg 1 tab PO TID 07/29/21 09/15/22 History calcium-vitamin D3 5 mcg (200 unit) tablet duloxetine 60 mg capsule,delayed 90 mg PO QDD 02/14/22 09/15/22 History release amlodipine 2.5 mg tablet 2.5 mg PO QPM 08/03/22 09/15/22 History denosumab 60 mg/mL subcutaneous 60 mg subcut UD 08/03/22 09/15/22 History syringe (Prolia) nitroglycerin 0.4 mg sublingual 0.4 mg sublingual UD PRN Chest Pain 08/03/22 09/15/22 History tablet vit C 250 mg-vit E 90 mg-zinc 40 1 tab PO BID 08/03/22 09/15/22 History mg-copper 1 [id number] capsule (PreserVision AREDS-2) estradiol 0.01% (0.1 mg/gram) 1 g vaginal DAILY PRN Vaginal 09/12/22 09/15/22 Rx vaginal cream Dryness #42.5 grams ascorbic acid (vitamin C) 1,000 mg 1 g PO QDD 09/15/22 09/15/22 History tablet (Vitamin C) pantoprazole 40 mg tablet,delayed 40 mg PO QAM 09/15/22 09/15/22 History release vitamins-lipotropics tablet 1 tab PO BID 09/15/22 09/15/22 History Past Med/Surg History Medical History Anxiety CKD (chronic kidney disease), stage III due to NSAID use- FOLLOWS WITH PCP, DR. 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 History of appendectomy History of cardiac catheterization SEPTEMBER 2018- [facility]- NO STENTS- "EVERYTHING CLEAN PER PATIENT" FOLLOWS WITH DR. JIMENEZ History of colonoscopy History of eye surgery AGE 2 History of left cataract surgery History of surgery repair of left femur fx/hardware. Family History Mother Dementia, Onset Age: 100 Family/Other Myocardial infarction Other Family history of diabetes mellitus in father No pertinent family history Denies family history of Ovarian cancer Prostate cancer Breast cancer Colorectal cancer Social History Smoking Status: Never smoker Second Hand Exposure: No; Do You Dip or Chew Tobacco: No; Tobacco Cessation Education Requested by Patient: No Hx Alcohol Use: No Hx Substance Use: No Preferred Language: [place] Communication Ability: Effective Manager Gyn Required: No Beliefs That Will Affect Care: None Current Living Situation: Alone Current Living Situation Comment: Daughter (sveta) moved to [place] How many Children do You have: 2 Other Information That Helps Us Care for You: No Feels Safe at Home: Yes Safety Concerns: Feels Safe At This Time Assistive Devices: None Review of Systems Review of Systems: All systems reviewed & are unremarkable except as noted in HPI & below Physical Exam Physical Exam: Constitutional: in no acute distress, pleasant, intact memory. AOX3. Vitals as above. HEENT: No scleral injection or discharge. Moist mucous membranes. Clear oropharynx. Neck: Supple without lymphadenopathy or thyromegaly. Trachea midline. Lungs: Clear to auscultation bilaterally with good effort. Cardiac: Regular rate and rhythm. No murmurs. No extremity edema. 2+ distal peripheral pulses. Abdomen: Bowel sounds present. Soft, nontender, and nondistended.No guarding. No hepatosplenomegaly. MSK: No cyanosis or clubbing. Extremities motor strength 5/5. Skin: No rashes, warm, dry. Neurologic: no focal deficits Results & Data Results & Data Vital Signs (Past 12 Hours) Vital Signs Temp Pulse Pulse Resp BP BP Pulse Ox 09/16/22 00:30 67 17 96 09/16/22 00:11 132/96 09/16/22 00:11 66 18 09/15/22 23:00 68 09/15/22 23:12 76 20 09/15/22 23:12 141/70 H 09/15/22 22:33 71 19 135/83 98 09/15/22 21:20 71 18 98 09/15/22 21:20 74 18 135/83 98 09/15/22 20:58 36.9 C 83 16 150/95 H 95 O2 Del Method 09/16/22 00:30 Room Air 09/16/22 00:11 09/16/22 00:11 09/15/22 23:00 09/15/22 23:12 09/15/22 23:12 09/15/22 22:33 09/15/22 21:20 Room Air 09/15/22 21:20 Room Air 09/15/22 20:58 Room Air Laboratory Results Laboratory Results WBC 7.15 K/ul (4.8-10.8) 09/15/22 21:18 RBC 3.96 M/uL (4.20-5.40) L 09/15/22 21:18 Hgb 13.3 g/dl (12.0-16.0) 09/15/22 21:18 Hct 40.0 % (37.0-47.0) 09/15/22 21:18 MCV 101.0 fL (80.0-100.0) H 09/15/22 21:18 MCH 33.6 pg (25.0-34.0) 09/15/22 21:18 MCHC 33.3 g/dL (32.0-36.0) 09/15/22 21:18 RDW Std Deviation 46.5 fL (36.4-46.3) H 09/15/22 21:18 RDW Coeff of [place] 12.4 % (11.5-14.5) 09/15/22 21:18 Plt Count 267 K/uL (130-400) 09/15/22 21:18 MPV 10.9 fL (9.4-12.4) 09/15/22 21:18 Immature Gran % (Auto) 0.3 % 09/15/22 21:18 Neut % (Auto) 50.1 % 09/15/22 21:18 Lymph % (Auto) 30.3 % 09/15/22 21:18 [place] % (Auto) 11.5 % 09/15/22 21:18 Eos % (Auto) 6.0 % 09/15/22 21:18 Baso % (Auto) 1.8 % 09/15/22 21:18 Neut # (Auto) 3.58 K/uL (1.40-6.50) 09/15/22 21:18 Lymph # (Auto) 2.17 K/uL (1.2-3.4) 09/15/22 21:18 [place] # (Auto) 0.82 K/uL (0.11-0.59) H 09/15/22 21:18 Eos # (Auto) 0.43 K/uL (0-0.50) 09/15/22 21:18 Baso # (Auto) 0.13 K/uL (0-0.2) 09/15/22 21:18 Immature Gran # (Auto) 0.02 K/uL (0.01-0.20) 09/15/22 21:18 PT 10.3 Seconds (9.0-12.0) 09/15/22 21:18 INR 0.9 (0.9-1.1) 09/15/22 21:18 APTT 26.6 Seconds (21.0-31.0) 09/15/22 21:18 PTT Ratio 0.9 09/15/22 21:18 Sodium 138 mmol/L (136-145) 09/15/22 21:18 Potassium 3.9 mmol/L (3.5-5.1) 09/15/22 21:18 Chloride 109 mmol/L (98-107) H 09/15/22 21:18 Carbon Dioxide 23 mmol/L (21-32) 09/15/22 21:18 Anion Gap 6 (3-11) 09/15/22 21:18 BUN 21 mg/dl (6-23) 09/15/22 21:18 Creatinine 1.15 mg/dl (0.6-1.2) 09/15/22 21:18 Est Cr Clr Drug Dosing 36.6 ml/min 09/15/22 21:18 Est GFR ( Amer) 55.0 ml/min 09/15/22 21:18 Est GFR (Non-Af Amer) 47.5 ml/min 09/15/22 21:18 BUN/Creatinine Ratio 18.3 (10-20) 09/15/22 21:18 Glucose 105 mg/dl (70-99(Fasting)) H 09/15/22 21:18 Calcium 10.2 mg/dl (8.6-10.3) 09/15/22 21:18 Total Bilirubin 0.3 mg/dl (0.2-1.0) 09/15/22 21:18 AST 18 U/L (13-39) 09/15/22 21:18 ALT 8 U/L (7-52) 09/15/22 21:18 Alkaline Phosphatase 73 U/L (34-104) 09/15/22 21:18 Troponin I High Sens 642.2 pg/ml (0-14) H* 09/16/22 00:08 Total Protein 7.1 gm/dl (6.0-8.3) 09/15/22 21:18 Albumin 4.1 gm/dl (3.4-5.0) 09/15/22 21:18 Globulin 3.0 gm/dl (2.5-4.0) 09/15/22 21:18 Albumin/Globulin Ratio 1.4 (0.9-2) 09/15/22 21:18 Lipase 38 U/L (11-82) 09/15/22 21:18 SARS-CoV-2, RNA, NAAT NEGATIVE (NEGATIVE) 09/15/22 21:28 Code Status & VTE Plan VTE Prophylaxis Plan VTE Prophylaxis will be ordered: Yes Supervising Physician Co-Signing Physician Notes Attending addendum: I have physically seen this patient, have supervised the medical residents activities, and agree with the H&P unless as otherwise noted. Assessment and Plan: NSTEMI/Prinzmetal's angina/CAD/hypertension- The patient will be admitted to telemetry for serial cardiac enzymes, serial EKG's, cardiac rhythm monitoring and a 2-D echocardiogram with Dopplers Troponin 631.4 Progressively worsening symptoms over the past 2 days Aspirin 81 mg daily, as patient prefers not to get 324 due to kidney issues in the past Heparin bolus and drip per protocol Check a fast lipid panel and hemoglobin A1c Consult cardiology GERD- Change to Protonix IV Migraines/anxiety depression Resume Topamax and Cymbalta Remaining orders and notations as noted Resident Activity Tracking Resident Involvement: Resident Care Provided Care Provided: Adult Hospital Medicine
[2022-09-16] MEDS ORDERED: SUMAtriptan succinate 50 MG TAB PO STA (04:28)
[2022-09-16] MEDS: LEVOTHYROXINE SODIUM 88 MCG TABLET PO SCH (06:37)
--- NOTE | 2022-09-16 07:36 | XRay Report ---
XR chest 1V portable CLINICAL HISTORY: Chest pain, nonspecific COMPARISON STUDY: Chest CT October 18, 2018. Chest radiograph July 29, 2021. FINDINGS: Old right fifth rib fracture is incidentally noted. A displaced posterior left fourth rib f racture is new since prior chest radiograph. Lung volumes are normal. Lungs are clear. There is no pn eumothorax or pleural effusion. Cardiac size is normal. Mediastinal contours are normal. There is no evidence for pulmonary edema. IMPRESSION: 1. No acute cardiopulmonary findings. 2. Displaced posterior left fourth rib fracture. This is age indeterminate but new since radiographs of July 29, 2021. ACT 112: Negative or not required by law. Electronically signed by: Alexander Christine M.D. 09/16/2022 7:35 AM
[2022-09-16 08:26] LABS: Chol HDL Ratio 3.8 (0-5)
[2022-09-16 08:47] LABS: Partial Thromboplastin Ratio 1.4
[2022-09-16] MEDS: FAMOTIDINE 40 MG TABLET PO SCH ×2 (09:12→09:20)
[2022-09-16] MEDS: TOPIRAMATE 100 MG TAB PO SCH ×2 (09:13→20:43)
--- NOTE | 2022-09-16 09:34 | Cardiology Consultation ---
Date of Consultation September 16, 2022 Assessment & Plan (1) Atypical chest pain: (2) Elevated troponin: Plan 1. Chest discomfort: Her chest discomfort is consistent with what she has experienced before, I suspect we are dealing with the same issue that she had in the past. I do not believe this is a coronary occlusive event and I would discontinue the heparin and would not consider catheterization at this time. I would try to increase her antispasm medications, she has not tolerated higher doses of amlodipine or diltiazem in the past. I am going to try low-dose oral nitroglycerin to see if she can tolerate that, we can also consider switching to a different calcium channel annemarie that she has not tried. At the moment she is pain-free. 2. Elevated troponin: Her troponin is elevated to a level which is consistent with her known diagnosis. She does not have a trend suspicious for a coronary occlusive event. History of Present Illness Reason for Consultation: Elevated cardiac enzymes Attending Physician: Abhishek Young DO History of Present Illness This is a 72-year-old woman with a history of hypercholesterolemia and atypical chest discomfort which has been characterized as Prinzmetal's angina. She had a catheterization October 18, 2018 when she had an elevated troponin and electroc ardiographic changes and appeared to respond to nitroglycerin. Catheterization however demonstrated normal coronary arteries and echocardiography showed normal left ventricular systolic function. Her electrocardiogram at the time demonstrated widespread anterior T wave inversions and right bundle branch block. A stress test was done October 14, 2020, this was a stress echo and was negative for ischemia and there was no exercise-induced chest discomfort. She was last seen in the office July 09, 2022 and she was not having chest discomfort at the time. She presents September 15, 2022 with left shoulder and neck discomfort with nausea. She describes to me onset of left arm, left shoulder and left neck discomfort (no chest discomfort) which lasted about 1/2-hour and first occurred about 1 week prior to admission and she took 1 nitroglycerin on that occasion with resolution of the discomfort. This happened again prior to presentation, on this occasion she was having nausea the day before but it may not be coincident with it. This discomfort lasted about half an hour and then resolved. In the emergency room she was treated with heparin, Nitropaste and her troponin was noted to be elevated. Her presenting troponin on September 15, 2022 at 2118 was 631, 3 hours later it was 642 and this morning (10 hours after the initial) was 647. Her T wave inversions are somewhat different now compared to 2019 but remain similar. She is currently having a headache from the nitroglycerin, she tells me that she could not tolerate higher doses of amlodipine and has already had difficulty tolerating diltiazem. I do not believe she has been on an oral nitrate. Allergies Allergy/AdvReac Type Severity Reaction Status Date / Time Iodinated Contrast Media Allergy Severe anaphylaxis Verified 08/27/22 12:03 meloxicam Allergy Severe Unresponsiv Verified 08/27/22 12:03 e diltiazem Allergy Unknown PT CAN'T Verified 08/27/22 12:03 REMEMBER RXN. ? NOT EFFECTIVE. penicillamine Allergy Unknown RASH, Verified 08/27/22 12:03 lupus-like rx Sulfa (Sulfonamide Allergy Unknown Rash Verified 08/27/22 12:03 Antibiotics) alendronate sodium AdvReac Unknown WASN'T Verified 08/27/22 12:03 EFFECTIVE gabapentin AdvReac Unknown hallucinati Verified 08/27/22 12:03 ons hydroxyzine AdvReac Unknown Nausea/DIZZ Verified 08/27/22 12:03 Y. mirtazapine [From Remeron] AdvReac Unknown Migraines/very Verified 08/27/22 12:03 lucid horrible dreams. NSAIDS (Non-Steroidal AdvReac Unknown WAS ON Verified 08/27/22 12:03 Anti-Inflamma HIGH DOSES CAUSED KIDNEY DAMAGE. venlafaxine [From Effexor] AdvReac Unknown Dizziness Verified 08/27/22 12:03 Cuprimine CAPS Allergy Unknown PT DOESN'T Uncoded 08/27/22 12:03 REMEMBER RX. Opioid Analgesics AdvReac Unknown N/V. Uncoded 08/27/22 12:03 Home Medications Medication Instructions Recorded Confirmed Type glucosamine sulfate 500 mg capsule 500 mg PO TID 03/08/18 09/15/22 History sumatriptan succinate 100 mg 100 mg PO DIRECTED PRN Migraine 03/08/18 09/15/22 History tablet (Imitrex) Headache vitamin E 268 mg (400 unit) capsule 400 unit PO QAM 03/08/18 09/15/22 History levothyroxine 88 mcg tablet 88 mcg PO DAILYBB 10/18/18 09/15/22 History valacyclovir 500 mg tablet 500 mg PO HS 11/18/18 09/15/22 History Lactobacillus acidophilus 10 1.75 cell PO QAM 11/28/18 09/15/22 History billion cell capsule (Probiotic) cyanocobalamin (vitamin B-12) 1,000 mcg PO QDL 03/08/20 09/15/22 History 1,000 mcg capsule cimetidine 400 mg tablet 400 mg PO TID 09/06/20 09/15/22 History topiramate 100 mg tablet 100 mg PO AMHS 09/06/20 09/15/22 History biotin 1,000 mcg chewable tablet 1,000 mcg PO QDL 10/13/20 09/15/22 History cholecalciferol (vitamin D3) 50 50 mcg PO QDD 10/13/20 09/15/22 History mcg (2,000 unit) tablet lorazepam 0.5 mg tablet (Ativan) 0.5 mg PO HS PRN anxiety 04/19/21 09/15/22 History calcium citrate 250 mg 1 tab PO TID 07/29/21 09/15/22 History calcium-vitamin D3 5 mcg (200 unit) tablet duloxetine 60 mg capsule,delayed 90 mg PO QDD 02/14/22 09/15/22 History release amlodipine 2.5 mg tablet 2.5 mg PO QPM 08/03/22 09/15/22 History denosumab 60 mg/mL subcutaneous 60 mg subcut UD 08/03/22 09/15/22 History syringe (Prolia) nitroglycerin 0.4 mg sublingual 0.4 mg sublingual UD PRN Chest Pain 08/03/22 09/15/22 History tablet vit C 250 mg-vit E 90 mg-zinc 40 1 tab PO BID 08/03/22 09/15/22 History mg-copper 1 [id number] capsule (PreserVision AREDS-2) estradiol 0.01% (0.1 mg/gram) 1 g vaginal DAILY PRN Vaginal 09/12/22 09/15/22 Rx vaginal cream Dryness #42.5 grams ascorbic acid (vitamin C) 1,000 mg 1 g PO QDD 09/15/22 09/15/22 History tablet (Vitamin C) pantoprazole 40 mg tablet,delayed 40 mg PO QAM 09/15/22 09/15/22 History release vitamins-lipotropics tablet 1 tab PO BID 09/15/22 09/15/22 History Patient History Medical History Anxiety CKD (chronic kidney disease), stage III due to NSAID use- FOLLOWS WITH PCP, DR. 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 History of appendectomy History of cardiac catheterization SEPTEMBER 2018- [facility]- NO STENTS- "EVERYTHING CLEAN PER PATIENT" FOLLOWS WITH DR. JIMENEZ History of colonoscopy History of eye surgery AGE 2 History of left cataract surgery History of surgery repair of left femur fx/hardware. Family History Mother Dementia, Onset Age: 100 Family/Other Myocardial infarction Other Family history of diabetes mellitus in father No pertinent family history Denies family history of Ovarian cancer Prostate cancer Breast cancer Colorectal cancer Social History Smoking Status: Never smoker Second Hand Exposure: No; Do You Dip or Chew Tobacco: No; Tobacco Cessation Education Requested by Patient: No Hx Alcohol Use: No Hx Substance Use: No Preferred Language: Slovenian Communication Ability: Effective Air Gun Operator Required: No Beliefs That Will Affect Care: None Current Living Situation: Alone Current Living Situation Comment: Daughter (sveta) moved to [place] How many Children do You have: 2 Other Information That Helps Us Care for You: No Feels Safe at Home: Yes Safety Concerns: Feels Safe At This Time Assistive Devices: None Review of Systems Review of Systems: All systems reviewed & are unremarkable except as noted in HPI & below Results & Data Vital Signs (Past 12 Hours) Vital Signs Temp Pulse Pulse Pulse Resp BP BP 09/16/22 08:16 36.6 C 70 18 111/67 09/16/22 08:09 74 09/16/22 04:23 09/16/22 03:00 36.4 C L 72 21 148/88 H 09/16/22 02:56 70 09/16/22 02:25 36.4 C L 72 20 148/88 H 09/16/22 01:30 83 22 09/16/22 01:00 76 15 09/16/22 00:30 67 17 09/16/22 00:11 132/96 09/16/22 00:11 66 18 09/15/22 23:00 68 09/15/22 23:12 76 20 09/15/22 23:12 141/70 H 09/15/22 22:33 71 19 135/83 Pulse Ox O2 Del Method 09/16/22 08:16 96 Room Air 09/16/22 08:09 09/16/22 04:23 Room Air 09/16/22 03:00 97 Room Air 09/16/22 02:56 09/16/22 02:25 97 Room Air 09/16/22 01:30 09/16/22 01:00 09/16/22 00:30 96 Room Air 09/16/22 00:11 09/16/22 00:11 09/15/22 23:00 09/15/22 23:12 09/15/22 23:12 09/15/22 22:33 98 Laboratory Results Cardiac Enzymes 09/15/22 09/16/22 09/16/22 Range/Units 21:18 00:08 07:33 AST 18 (13-39) U/L Troponin I High Sens 631.4 H* 642.2 H* 647.6 H* (0-14) pg/ml Coagulation 09/15/22 09/16/22 Range/Units 21:18 07:33 PT 10.3 (9.0-12.0) Seconds APTT 26.6 39.0 H (21.0-31.0) Seconds Lipids 09/16/22 Range/Units 07:33 Triglycerides 100 (0-150) mg/dl Cholesterol 200 (0-200) mg/dl HDL Cholesterol 53 mg/dl Cholesterol/HDL Ratio 3.8 (0-5) CBC 09/15/22 Range/Units 21:18 WBC 7.15 (4.8-10.8) K/ul RBC 3.96 L (4.20-5.40) M/uL Hgb 13.3 (12.0-16.0) g/dl Hct 40.0 (37.0-47.0) % Plt Count 267 (130-400) K/uL Neut # (Auto) 3.58 (1.40-6.50) K/uL Lymph # (Auto) 2.17 (1.2-3.4) K/uL [place] # (Auto) 0.82 H (0.11-0.59) K/uL Eos # (Auto) 0.43 (0-0.50) K/uL Baso # (Auto) 0.13 (0-0.2) K/uL Comprehensive Metabolic Panel 09/15/22 Range/Units 21:18 Sodium 138 (136-145) mmol/L Potassium 3.9 (3.5-5.1) mmol/L Chloride 109 H (98-107) mmol/L Carbon Dioxide 23 (21-32) mmol/L BUN 21 (6-23) mg/dl Creatinine 1.15 (0.6-1.2) mg/dl Glucose 105 H (70-99(Fasting)) mg/dl Calcium 10.2 (8.6-10.3) mg/dl AST 18 (13-39) U/L ALT 8 (7-52) U/L Alkaline Phosphatase 73 (34-104) U/L Total Protein 7.1 (6.0-8.3) gm/dl Albumin 4.1 (3.4-5.0) gm/dl Intake and Output 09/15/22 09/16/22 09/16/22 22:59 06:59 14:59 Other: # Unmeasured Voids 1 Weight 56.2 kg 55.7 kg Weight Measurement Method Standing Scale Diagnostic Findings Telemetry: Sinus rhythm, no significant arrhythmia. Echocardiogram: I did review her echocardiogram and her left ventricular function is fairly good but not quite normal by my estimation. The echocar diogram will be formally read soon. PG Care Time/CCT Total # of Minutes Spent Total Time Spent with Patient: Total time spent is greater than 50% in coordination of care (as documented) at patient's floor/unit and/or counseling patient: Coding Level of Care Code 50256 INT INP/OBS CARE 75MIN Diagnoses Atypical chest pain R07.89 Elevated troponin R77.8
[2022-09-16] MEDS ORDERED: PANTOprazole 40 MG in SYRINGE 0 ML IV SCH (11:00)
[2022-09-16] MEDS: ISOSORBIDE MONO EXTENDED REL 30 MG TABCR PO SCH (12:32)
[2022-09-16] MEDS ORDERED: CIMETIDINE 400 MG PO SCH (14:00)
[2022-09-16] MEDS ORDERED: LACTATED RINGER'S 500 ML IV ONE (14:33)
[2022-09-16] MEDS: DULoxetine HCL 30 MG CAP PO SCH (15:16)
--- NOTE | 2022-09-16 15:46 | Hospitalist Progress Note ---
Date of Service September 16, 2022 Assessment & Plan (1) Atypical chest pain: Plan: 72 yo female with PMHx of Prinzmetal angina, CKD, GERD, HTN, anxiety, depression, hypothyroidism, and migraines presents with atypical chest pain. #Atypical Chest Pain #Elevated troponin #H/o Prinzmetal angina -2 days of atypical symptoms including pain in L arm/jaw and nausea. Resolved after ED evaluation. -High sensitivity troponin 631, trend. It appears when she had previous Prinzmetal anginal symptoms in 2020 her troponin (old scale) at that time was 1.8. -Aspirin 81mg given. -Heparin stopped as concern for ACS/acute MO now low. -echo shows new reduced EF (per rounding wire fence builder; official report not available at this time) -lipid panel within normal limits, a1c pending. -cardiology consulted: * Switched nitrate to lower SL dose as needed. * Started on Imdur 30 mg every morning * Continue home amlodipine 2.5 mg daily #GERD -Home cimetidine #HTN -cont. amlodipine as above #Migraine headache -cont. Topamax #Anxiety #Depression -cont. Cymbalta #Hypothyroidism -cont. Synthroid DVT ppx: None FEN/GI: Heart healthy Code Status: DNI only Dispo: PCU (2) Prinzmetal's angina: (3) Nausea: (4) Vaginal erosion: (5) PVCs (premature ventricular contractions): (6) CKD (chronic kidney disease): (7) GERD (gastroesophageal reflux disease): (8) Anxiety and depression: (9) Hypertension: Admission and Anticipated Discharge Date Admission Date: September 16, 2022 Supervising Physician Co-Signing Physician Notes I personally examined the patient and verified all coon points of history and exam, discussed case, and agree with decision making with Dr Garsia Having a bit of a headache from the nitrates. Discussed strategy for trying to manage Prinzmetal's angina Vitals noted, in general she is awake and alert pleasant no distress. HEENT normocephalic atraumatic mucous membranes moist. Osteopathic/musculoskeletal shows bilateral suboccipitals to be high tone, tender, decreased range of motioninhibitory pressure with some improvement. Patient tolerated well. Breathing unlabored no accessory muscle use. Prinzmetal's angina with NSTEMI due to vasospasmfortunately overall stable. Does appear to warrant escalation beyond her calcium channel annemarie. Discussed that given nitrates would affect vasodilation from a different mechanism of action, it would definitely be a logical add on to the calcium channel blockerwe will just have to see if we cannot help mitigate the headache in hopes that her body gets used to the nitrates. Tried some suboccipital OMT and an ice pack, as well as fluid bolus to manage the migraine today, if migraines start to improve, calcium channel annemarie plus nitrate, as long as she is not orthostatic, seems like a pretty good escalation. If she cannot tolerate the nitrate, could consider something like an TERI receptor annemarie at a low dosegiven the minimal impact on blood pressure, and while angiotensin II is most thought to be a renal vasoconstrictor, it is plausible to extrapolate that it may have a bit more systemic effectand would at least be worthwhile for consideration. Her PCP as well as her primary wire fence builder will be assuming care tomorrowand their insights will obviously be greatly appreciated as well Was on heparin dripnow DVT prophylaxis with ambulation Subjective Patient is awake in bed on arrival. She denies chest pain or jaw pain. She reports mild headache immediately after taking nitrate tab. Review of Systems Review of Systems: All systems reviewed & are unremarkable except as noted in HPI & below Physical Exam Physical Exam: General: No acute distress HEENT: PERRLA. Normal conjunctiva, anicteric sclera. Oropharynx normal. Respiratory: Normal respiratory effort, CTABL. Cardiovascular: RRR without murmurs, gallops, or rubs. No pedal edema. GI: Soft abdomen with normal bowel sounds heard on auscultation. Nontender x4 quadrants Neuro: Alert and oriented x3. Results & Data Results & Data Vital Signs (Past 12 Hours) Vital Signs Temp Pulse Pulse Resp BP Pulse Ox O2 Del Method 09/16/22 15:32 63 09/16/22 12:24 36.9 C 69 16 128/78 96 Room Air 09/16/22 08:16 36.6 C 70 18 111/67 96 Room Air 09/16/22 08:09 74 09/16/22 04:23 Room Air Resident Activity Tracking Resident Involvement: Resident Care Provided Care Provided: Adult Hospital Medicine
[2022-09-16] MEDS: CIMETIDINE 400 MG PO SCH ×2 (16:15→20:41)
--- NOTE | 2022-09-16 17:23 | XCELERA ---
[id number] [id number]
[2022-09-16] MEDS: valACYclovir HCL 500 MG TABLET PO SCH (20:42)
[2022-09-16] MEDS ORDERED: amLODIPine BESYLATE 5 MG TAB PO SCH (21:00)
[2022-09-16] MEDS: LORazepam 0.5 MG TAB PO PRN (21:23)
--- NOTE | 2022-09-17 03:29 | Billing Data ---
Date of Service September 17, 2022 Coding Level of Care Code 53690 INT INP/OBS CARE
[2022-09-17] MEDS: LEVOTHYROXINE SODIUM 88 MCG TABLET PO SCH (05:42)
[2022-09-17] MEDS: ACETAMINOPHEN 1,000 MG/100 ML VIAL IV PRN ×2 (05:42→15:46)
[2022-09-17 06:14] LABS: Basophils # (auto) 0.11 K/uL (0-0.2); Basophils % (auto) 1.6 %; Eosinophils # (auto) 0.47 K/uL (0-0.50); Eosinophils % (auto) 6.7 %; Hematocrit (blood only) 38.2 % (37.0-47.0); Hemoglobin 12.8 g/dl (12.0-16.0); Immature Granulocytes # (auto) 0.02 K/uL (0.01-0.20); Immature Granulocytes % (auto) 0.3 %; Mean Corpuscular Hemoglobin 33.6 pg (25.0-34.0); Mean Corpuscular Hgb Conc 33.5 g/dL (32.0-36.0); Mean Corpuscular Volume 100.3 fL (80.0-100.0); Monocytes # (auto) 0.62 K/uL (0.11-0.59); Monocytes % (auto) 8.8 %; Neutrophils # (auto) 3.91 K/uL (1.40-6.50); Neutrophils % (auto) 55.6 %; Platelet Count 256 K/uL (130-400); RDW Coefficient of Variation 12.5 % (11.5-14.5); Red Blood Count 3.81 M/uL (4.20-5.40); White Blood Count 7.03 K/ul (4.8-10.8)
[2022-09-17 06:39] LABS: Albumin Globulin Ratio 1.3 (0.9-2); Albumin Level 3.7 gm/dl (3.4-5.0); BUN Creatinine Ratio 16.5 (10-20); Bilirubin,Total 0.4 mg/dl (0.2-1.0); Calcium 8.6 mg/dl (8.6-10.3); Creatinine Clr Calc Pharmacy 43.4 ml/min; Est GFR (African American) 67.6 ml/min; Est GFR (Non-African American) 58.3 ml/min; Globulin 2.9 gm/dl (2.5-4.0); Potassium 3.8 mmol/L (3.5-5.1); Total Protein 6.6 gm/dl (6.0-8.3)
[2022-09-17 08:04] LABS: Estimated Average Glucose 114 mg/dl; Hemoglobin A1C 5.6 % (4.5-5.6)
[2022-09-17] MEDS: TOPIRAMATE 100 MG TAB PO SCH ×2 (09:02→20:27)
[2022-09-17] MEDS: ISOSORBIDE MONO EXTENDED REL 30 MG TABCR PO SCH (09:03)
[2022-09-17] MEDS: CIMETIDINE 400 MG PO SCH ×3 (09:05→20:29)
[2022-09-17] MEDS: PANTOprazole 40 MG TAB PO SCH (09:09)
--- NOTE | 2022-09-17 09:55 | Hospitalist Progress Note ---
Date of Service September 17, 2022 Assessment & Plan (1) Atypical chest pain: Plan: 72 yo female with PMHx of Prinzmetal angina, CKD, GERD, HTN, anxiety, depression, hypothyroidism, and migraines presents with atypical chest pain. #Atypical chest pain -Known history of Prinzmetal angina -Troponin elevated on admission, peak of 688. EKG without overt ischemic change -S/p heparin infusion, discontinued 09/16 due to low suspicion of ACS -TTE unremarkable, EF 50-55 -A1C, lipid panel unremarkable -Cardiology consulted, appreciate recommendations -Likely coronary vasospasm rather than acute ACS -Pt started on Imdur 30 mg daily, not tolerating well due to headache -Will d/c Imdur and amlodipine, initiate lisinopril 5 mg daily #HTN -Continue amlodipine, lisinopril as above #GERD -Continue home cimetidine #Migraine disorder -Continue Topamax -Sumatriptan PRN #Anxiety/depression -Continue Cymbalta #Hypothyroidism -Continue Synthroid #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 (2) Prinzmetal's angina: (3) Nausea: (4) Vaginal erosion: (5) PVCs (premature ventricular contractions): (6) CKD (chronic kidney disease): (7) GERD (gastroesophageal reflux disease): (8) Anxiety and depression: (9) Hypertension: Admission and Anticipated Discharge Date Admission Date: September 16, 2022 Supervising Physician Co-Signing Physician Notes Resident Physician Supervision Note: I independently interviewed and examined the patient and verified the coon history and physical, reviewed labs and image studies and agree with resident findings and care plan. Subjective Acute events overnight- none. Pt examined at bedside. She continues to have mild headache, believes this may be due to Imdur. Notes the headache does improve with Tylenol IV. Denies chest pain. Does occasionally have left arm + shoulder discomfort though this is transient, attributes this to her usual vasospasms. No new complaints. Review of Systems Review of Systems: Per HPI/Subjective Physical Exam Physical Exam: General: No acute distress HEENT: Normal conjunctiva, anicteric sclera Respiratory: Normal respiratory effort, CTAB, unlabored respirations. Cardiovascular: RRR without murmurs, gallops, or rubs. No pedal edema. Neuro: Alert and oriented x3. Results & Data Results & Data Vital Signs (Past 12 Hours) Vital Signs Temp Pulse Pulse Resp BP Pulse Ox O2 Del Method 09/17/22 07:56 36.7 C 84 18 114/68 92 Room Air 09/17/22 07:07 74 09/17/22 02:56 36.4 C L 72 18 99/59 L 96 Room Air 09/16/22 23:08 36.5 C 68 16 99/59 L 93 Room Air 09/16/22 22:33 70 Resident Activity Tracking Resident Involvement: Resident Care Provided Care Provided: Adult Hospital Medicine
[2022-09-17] MEDS ORDERED: SUMAtriptan succinate 25 MG TAB PO STA (11:53)
[2022-09-17] MEDS: DULoxetine HCL 30 MG CAP PO SCH (16:45)
[2022-09-17] MEDS ORDERED: SUMAtriptan succinate 50 MG TAB PO STA (20:14)
[2022-09-17] MEDS: valACYclovir HCL 500 MG TABLET PO SCH (20:28)
[2022-09-17] MEDS ORDERED: KETOROLAC TROMETHAMINE 15 MG/ML VIAL IV ONE (20:30)
[2022-09-17] MEDS: LORazepam 0.5 MG TAB PO PRN (20:37)
[2022-09-18] MEDS: ACETAMINOPHEN 1,000 MG/100 ML VIAL IV PRN ×2 (00:21→08:43)
[2022-09-18] MEDS: LEVOTHYROXINE SODIUM 88 MCG TABLET PO SCH (05:55)
--- NOTE | 2022-09-18 07:51 | Electrocardiogram Report ---
Test Reason : Blood Pressure : / mmHG Vent. Rate : 074 BPM Atrial Rate : 074 BPM P-R Int : 144 ms QRS Dur : 122 ms QT Int : 398 ms P-R-T Axes : 076 -67 067 degrees QTc Int : 441 ms Normal sinus rhythm Possible Left atrial enlargement Right bundle branch block Left anterior fascicular block Bifascicular block T wave abnormality, consider lateral ischemia Abnormal ECG When compared with ECG of 13-OCT-2020 02:01, No significant change was found Confirmed by Alfonso Fenton ([id number]) on 09/18/2022 7:51:31 AM Referred By: REFERRED SELF Confirmed By:Alfonso Fenton
[2022-09-18] MEDS: PANTOprazole 40 MG TAB PO SCH (08:43)
[2022-09-18] MEDS: TOPIRAMATE 100 MG TAB PO SCH (08:43)
[2022-09-18] MEDS: CIMETIDINE 400 MG PO SCH (08:45)
[2022-09-18] MEDS ORDERED: lisinopril 5 MG TAB PO SCH (09:00)
[2022-09-18] MEDS ORDERED: lisinopril 10 MG TAB PO SCH (09:00)
[2022-09-18] MEDS ORDERED: SUMAtriptan succinate 25 MG TAB PO STA (09:05)
--- NOTE | 2022-09-18 10:57 | Discharge Summary ---
Date of Service September 18, 2022 Admission HPI Per Admitting Provider 72 yo female with PMHx of prinzmetal angina, CKD, GERD, HTN, anxiety, depression, hypothyroidism, and migraines presents with atypical chest pain. Last week patient had a few hours of pain in her left arm radiating to her left jaw which self resolved on its own. 2 days ago she began experiencing the same symptoms except this time with nausea which was persistent for more than a day and prompted her to come to the ED for evaluation. When seen at bedside she stated her symptoms had resolved. Denies headache, chest pain, shortness of breath, abdominal pain, constipation, diarrhea, vomiting, dysuria. She does hav e a history of Prinzmetal angina and follows with [facility] cardiology. She was last seen in June and was reassured things looked well. She states she had not had any atypical chest pain symptoms for years until last week. It appears her last echo was back in 2020 and last catheterization was back in 2018. Admission Exam Per Admitting Provider Constitutional: in no acute distress, pleasant, intact memory. AOX3. Vitals as above. HEENT: No scleral injection or discharge. Moist mucous membranes. Clear oropharynx. Neck: Supple without lymphadenopathy or thyromegaly. Trachea midline. Lungs: Clear to auscultation bilaterally with good effort. Cardiac: Regular rate and rhythm. No murmurs. No extremity edema. 2+ distal peripheral pulses. Abdomen: Bowel sounds present. Soft, nontender, and nondistended.No guarding. No hepatosplenomegaly. MSK: No cyanosis or clubbing. Extremities motor strength 5/5. Skin: No rashes, warm, dry. Neurologic: no focal deficits Principal Diagnosis Atypical chest pain/Prinzmetal angina Discharge Exam General: No acute distress HEENT: Normal conjunctiva, anicteric sclera Respiratory: Normal respiratory effort, CTAB, unlabored respirations. Cardiovascular: RRR without murmurs, gallops, or rubs. No pedal edema. Neuro: Alert and oriented x3. Discharge Data Allergies Allergy/AdvReac Type Severity Reaction Status Date / Time Iodinated Contrast Media Allergy Severe anaphylaxis Verified 08/27/22 12:03 meloxicam Allergy Severe Unresponsiv Verified 08/27/22 12:03 e diltiazem Allergy Unknown PT CAN'T Verified 08/27/22 12:03 REMEMBER RXN. ? NOT EFFECTIVE. penicillamine Allergy Unknown RASH, Verified 08/27/22 12:03 lupus-like rx Sulfa (Sulfonamide Allergy Unknown Rash Verified 08/27/22 12:03 Antibiotics) alendronate sodium AdvReac Unknown WASN'T Verified 08/27/22 12:03 EFFECTIVE gabapentin AdvReac Unknown hallucinati Verified 08/27/22 12:03 ons hydroxyzine AdvReac Unknown Nausea/DIZZ Verified 08/27/22 12:03 Y. mirtazapine [From Remeron] AdvReac Unknown Migraines/very Verified 08/27/22 12:03 lucid horrible dreams. NSAIDS (Non-Steroidal AdvReac Unknown WAS ON Verified 08/27/22 12:03 Anti-Inflamma HIGH DOSES CAUSED KIDNEY DAMAGE. venlafaxine [From Effexor] AdvReac Unknown Dizziness Verified 08/27/22 12:03 Cuprimine CAPS Allergy Unknown PT DOESN'T Uncoded 08/27/22 12:03 REMEMBER RX. Opioid Analgesics AdvReac Unknown N/V. Uncoded 08/27/22 12:03 Consultations 09/15/22 22:55 ED Decision to Admit Stat 09/16/22 01:15 Consult Cardiology Routine Hospital Course (1) Atypical chest pain: 72 yo female with PMHx of Prinzmetal angina, CKD, GERD, HTN, anxiety, depression, hypothyroidism, and migraines presents with atypical chest pain. #Atypical chest pain -Known history of Prinzmetal angina -Troponin elevated on admission, peak of 688. EKG without overt ischemic change -S/p heparin infusion, discontinued 09/16 due to low suspicion of ACS -TTE unremarkable, EF 50-55 -A1C, lipid panel unremarkable -Likely coronary vasospasm rather than acute ACS -Pt started on Imdur 30 mg during stay but did not tolerate well due to headache. Lisinopril was started but pt refused due to concerns about kidney injury. After discussion with cardiology, pt was ultimately discharged with just home amlodipine 2.5 mg daily #HTN -Continued amlodipine -Deferred addition of lisinopril #Migraine disorder -Continued Topamax -Sumatriptan PRN given x2 during hospitalization #Anxiety/depression -Continued Cymbalta #Hypothyroidism -Continued Synthroid #Eosinophilic fascitis -Continued home cimetidine, chronic (2) Prinzmetal's angina: (3) Nausea: (4) Vaginal erosion: (5) PVCs (premature ventricular contractions): (6) CKD (chronic kidney disease): (7) GERD (gastroesophageal reflux disease): (8) Anxiety and depression: (9) Hypertension: Total Time Total Time Spent Total Time Spent (In Minutes): 30 Discharge Plan Discharge Items Patient Disposition: Home - Self-Care Reason For Visit: CHEST PAIN Discharge Diagnosis: Prinzmetal angina Activity: Resume your previous activity Non-emergency contact: Primary Care Provider and Nutrition And Dietetics Instructor Call non-emergency contact if: your symptoms worsen Follow-up/Referrals: Obdulia Mcrae MD [Primary Care Provider] - 09/24/22 1:45 pm (DR MELO) Diet: Regular Addtl Attending Provider Instructions: You were admitted to the hospital for chest pain. An extensive evaluation did not suggest heart attack as the cause of your chest pain. It was suspected to be more likely vasospasm of your coronary arteries. We did try Imdur to help reduce the vasospasm but the headache you felt was likely Imdur side effect. We felt lisinopril may help but after discussion with cardiology, it was ultimately decided to proceed with only amlodipine as treatment for your blood pressure and vasospasm. A discharge summary will be sent to your primary care physician to ensure continuity of care. Please bring this discharge summary with you to your next office appointment so that your provider can review it at that time. Follow-up appointments: - Make a follow-up appointment with your PCP within the next week. It is very important that you follow up with them shortly after discharge from the hospital. Medications: Your medication list has been reviewed and reconciled upon discharge to ensure accuracy and continuity of care. An updated list of all your medications is included with your hospital discharge paperwork. Please review this list closely, and make note of any changes. Take your medications as instructed; do not skip a dose of your medicines. Make sure all of your doctors know every medicine you are taking (including [id number]-[id number] medicines, vitamins, and supplements). Call your primary care provider before taking any new medicines (including tbra-yyv-slbxibr medicines, vitamins, and supplements), because some of these may interact with your current medications, or may make your symptoms worse. Tell your primary care provider if you cannot afford your medications. CONTACT YOUR PRIMARY CARE PROVIDER if you experience any of the following: -Chest pain -Difficulty breathing -Persistent headache -Fatigue -Lightheadedness -Sweating - Difficulty following your treatment plan, or difficulty taking medications CALL 911 OR GO TO THE EMERGENCY DEPARTMENT if you experience any of the following: - Sudden, severe abdominal pain or nausea/vomiting - Severe chest pain, or chest pain that radiates (moves) to your jaw or arm - Sudden, severe shortness of breath or difficulty breathing Thank you for allowing us to participate in your care Pending Studies at Discharge: No Stand-Alone Forms: My [facility] Medications and DC Order Prescriptions: Continued estradiol 0.01 % (0.1 mg/gram) cream 1 g vaginal DAILY PRN (Reason: Vaginal Dryness) Qty: 42.5 2RF Rx Instructions: use with pessary cleaning cyanocobalamin (vitamin B-12) 1,000 mcg capsule 1,000 mcg PO QDL lorazepam [Ativan] 0.5 mg tablet 0.5 mg PO HS PRN (Reason: anxiety) valacyclovir 500 mg tablet 500 mg PO HS cimetidine 400 mg tablet 400 mg PO TID Rx Instructions: administer with meals sumatriptan succinate [Imitrex] 100 mg Tablet 100 mg PO DIRECTED PRN (Reason: Migraine Headache) glucosamine sulfate 500 mg Capsule 500 mg PO TID vitamin E 400 unit Capsule 400 unit PO QAM topiramate 100 mg tablet 100 mg PO AMHS levothyroxine 88 mcg Tablet 88 mcg PO DAILYBB duloxetine 60 mg capsule,delayed release(DR/EC) 90 mg PO QDD Probiotic 10 billion cell Capsule 1.75 cell PO QAM Patient Comments: allign gummies pre and probiotic / dual. cholecalciferol (vitamin D3) 50 mcg (2,000 unit) Tablet 50 mcg PO QDD biotin 1,000 mcg Tablet,Chewable 1,000 mcg PO QDL Rx Instructions: TAKE WITH LUNCH calcium citrate-vitamin D3 250 mg-5 mcg (200 unit) Tablet 1 tab PO TID PreserVision AREDS-2 250-90-40-1 mg Capsule 1 tab PO BID amlodipine 2.5 mg tablet 2.5 mg PO QPM nitroglycerin 0.4 mg tablet, sublingual 0.4 mg sublingual UD PRN (Reason: Chest Pain) Rx Instructions: TAKE UNDER TONGUE NEEDED DIRECTED BY THE PHYSCIAN Prolia 60 mg/mL Syringe 60 mg SUBCUT UD Patient Comments: every 6 mon. next dose due september 2022. ascorbic acid (vitamin C) [Vitamin C] 1,000 mg Tablet 1 g PO QDD vitamins-lipotropics Tablet 1 tab PO BID pantoprazole 40 mg Tablet,Delayed Release (Dr/Ec) 40 mg PO QAM Discharge Orders: Discharge Order (Routine); Ordered 09/18/22 Ordered By: Peyton Vasquez Admission Data Admit Date/Time: 09/16/22 00:44 Attending Provider: Obdulia Mcrae Admit Provider: Raleigh Naidu Primary Care Provider: Obdulia Mcrae Other Providers: Alfonso Fenton ; Sudarshan Ramos ; Abhishek Young Other Interventions: Discharge Summary Assessment (RN) Last Done: 09/18/22 11:11 Supervising Physician Co-Signing Physician Notes Resident Physician Supervision Note: I independently interviewed and examined the patient and verified the coon history and physical, reviewed labs and image studies and agree with resident findings and care plan.
== END 2022-09-18 14:27 | disposition home or self-care (01) | DRG 311 ==
LOC: ED 20:53 → SUATTDRO 09-16 00:44 → 4W 09-16 00:44

== ENCOUNTER 2024-12-02 13:23 | Inpatient (IN) ==
--- NOTE | 2024-12-02 14:05 | Emergency Department Note ---
Impression & Plan MONROE (dyspnea on exertion), Elevated troponin, Urinary tract infection ED Provider Note NAME: FRITZ DELA CRUZ AGE: 74 SEX: F : 1950 ARRIVES VIA: Ambulance INFORMANT: Patient, ED PROVIDER(S): Abrahan Joel MD CHIEF COMPLAINT: Dyspnea on exertion MEDICAL DECISION MAKING: Patient presents due to concern for shortness of breath. IV was established and blood work was obtained. Patient white count 12 with normal hemoglobin MCV slightly elevated. Platelet count is unremarkable. Kidney function unremarkable. Patient's initial troponin of 233. The patient has had troponin elevations in the past. BNP of 2600. Urinalysis does show concerns for infection. BioFire negative. The patient's chest x-ray shows mild bilateral pleural effusions and vascular congestion. Patient was ordered Lasix 20 mg. I did speak the on-call hospitalist service and the patient was admitted by Dr. Chicas. Discussion w/ other healthcare providers: Dr. Chicas inpatient medicine service Prior /Outside records reviewed: I reviewed report of a cardiology visit note from January 09, [address] Maldonado. Known history of Prinzmetal's angina atypical chest pain hypercholesterolemia and PVCs. Differential diagnosis: Reactive airway disease, pneumonia, pneumothorax, COPD, CHF, ACS, pulmonary embolism, musculoskeletal, GERD as well as other pathologies were considered. Diagnostics, as interpreted by me: ECG: Sinus, rate of 98 wide QRS right bundle branch block pattern, left axis deviation PVCs noted. No obvious STEMI. Cardiac monitoring: An order was placed for continuous cardiac monitoring. The monitor shows a rate of 89 with sinus rhythm. Patient was placed on pulse oximetry Medical decision rules: None Imaging studies: I informally interpreted the patient's chest x-ray shows likely pleural effusions and vascular congestion with formal report to follow. HPI: Patient presents due to concern for shortness of breath. The patient reports that she has had shortness of breath over the last 2 weeks exertional in nature. Patient states that she may feel worse if she lays flat. Patient denies any leg swelling or calf pain no history of DVT or PE. She does follow with Dr. Maldonado for history of Prinzmetal's angina. She states that she is compliant with her medications but did not take them this morning. The patient states that she was going to family medicine clinic at [facility] when she was having difficulty just getting from her car to the office. Patient states that she has had a dry nonproductive cough as well as postnasal drip. She does not feel though that her symptoms are related to infectious cause. Patient denies any chest pains. No nausea vomiting or diarrhea. PAST MEDICAL HISTORY: See Below PAST SURGICAL HISTORY: See Below SOCIAL HISTORY: See Below HOME MEDICATIONS: See Below ALLERGIES: See Below VITALS: See Below PHYSICAL EXAMINATION: GENERAL: NAD, non-toxic. Wearing glasses. EYE EXAM: Normal conjunctiva. PERRL, no anisocoria and EOM's grossly intact w/o pain. OROPHARYNX: Moist mucus membranes, grossly normal dentition. NECK: Trachea midline, no stridor. LUNGS: Diminished breath sounds at the bases. Normal chest wall mechanics. HEART: NSR, no MRG. ABDOMEN: Abdomen soft, non-tender, no masses, no rebound or guarding. BACK: No CVA TTP. SKIN: No rashes and no bruising. UPPER EXTREMITIES: Upper extremities are grossly normal. LOWER EXTREMITIES: Grossly normal, no edema. NEURO EXAM: Awake and alert, follows commands, no obvious facial asymmetry, normal speech, moves all 4 extremities. Past Med/Surg History Problem List (Updated 12/02/24 @ 22:49 by Abrahan Joel MD) Orthopnea MONROE (dyspnea on exertion) (Acute) Urinary tract infection (Acute) Elevated troponin (Acute) Anxiety and depression GERD (gastroesophageal reflux disease) CKD (chronic kidney disease) Acute shoulder pain (Acute) Vaginal erosion PVCs (premature ventricular contractions) Mild mitral regurgitation Cervicalgia Acute renal insufficiency Non-ST elevation [place] (NSTEMI) (Acute) Cystocele Prinzmetal's angina (Acute) Hypercholesterolemia Atypical chest pain Rib fracture left 9th rib- surgeon aware Cystocele Chest pain Acute non-ST elevation myocardial infarction (NSTEMI) NSTEMI (non-ST elevated myocardial infarction) Eosinophilic fasciitis On chronic H2 annemarie Hip fracture, pathological (09/10/13) Flank pain Femur fracture, left (09/11/13) Osteoporosis Medical History Hypertension Nausea Peritonitis HX 1960 Nausea and vomiting after administration of anesthetic agent Kidney stones hx Nephrolithiasis History of shingles on chronic Valtrex CKD (chronic kidney disease), stage III due to NSAID use- FOLLOWS WITH PCP, DR. SETH HARRISON/ G[facility] Migraine HX - GETS OCCASIONALLY History of angina SEPTEMBER 2018.....Catheterization was negative....to see PCP before OR....supervisor title felt more musculoskeletal in origin...more details under notes..DOROTEO, Depression Anxiety Hypothyroidism Osteoarthritis Surgical History History of left cataract surgery History of eye surgery AGE 2 History of surgery repair of left femur fx/hardware. History of colonoscopy H/O total hysterectomy with bilateral salpingo-oophorectomy (BSO) Age 25 for endometriosis. History of cardiac catheterization SEPTEMBER 2018- [facility]- NO STENTS- "EVERYTHING CLEAN PER PATIENT" FOLLOWS WITH DR. MALDONADO History of appendectomy Family History Mother Dementia, Onset Age: 100 Family/Other Myocardial infarction Other Family history of diabetes mellitus in father No pertinent family history Denies family history of Ovarian cancer Prostate cancer Breast cancer Colorectal cancer Social History Smoking Status: Never smoker Second Hand Exposure: No; Do You Dip or Chew Tobacco: No; Hx Alcohol Use: No Hx Substance Use: No Preferred Language: Upper Sorbian Communication Ability: Effective Jackscrew Worker Required: No Beliefs That Will Affect Care: None Current Living Situation: Alone Current Living Situation Comment: Daughter (sveta) moved to [place] How many Children do You have: 2 Other Information That Helps Us Care for You: No Feels Safe at Home: Yes Safety Concerns: Feels Safe At This Time Assistive Devices: None Allergies Allergies Allergy/AdvReac Type Severity Reaction Status Date / Time Iodinated Contrast Media Allergy Severe anaphylaxis Verified 06/24/24 09:52 meloxicam Allergy Severe Unresponsiv Verified 06/24/24 09:52 e oxybutynin Allergy Severe Verified 06/24/24 09:52 diltiazem Allergy Unknown PT CAN'T Verified 06/24/24 09:52 REMEMBER RXN. ? NOT EFFECTIVE. penicillamine Allergy Unknown RASH, Verified 06/24/24 09:52 lupus-like rx Sulfa (Sulfonamide Allergy Unknown Rash Verified 06/24/24 09:52 Antibiotics) alendronate sodium AdvReac Unknown WASN'T Verified 06/24/24 09:52 EFFECTIVE gabapentin AdvReac Unknown hallucinati Verified 06/24/24 09:52 ons hydroxyzine AdvReac Unknown Nausea/DIZZ Verified 06/24/24 09:52 Y. mirtazapine [From Remeron] AdvReac Unknown Migraines/very Verified 06/24/24 09:52 lucid horrible dreams. NSAIDS (Non-Steroidal AdvReac Unknown WAS ON Verified 06/24/24 09:52 Anti-Inflamma HIGH DOSES CAUSED KIDNEY DAMAGE. venlafaxine [From Effexor] AdvReac Unknown Dizziness Verified 06/24/24 09:52 Cuprimine CAPS Allergy Unknown PT DOESN'T Uncoded 06/24/24 09:52 REMEMBER RX. Opioid Analgesics AdvReac Unknown N/V. Uncoded 06/24/24 09:52 Home Meds Home Medications Medication Instructions Recorded Confirmed glucosamine sulfate 500 mg capsule 500 mg PO TID 03/08/18 12/02/24 sumatriptan succinate 100 mg 100 mg PO DIRECTED PRN Migraine 03/08/18 12/02/24 tablet (Imitrex) Headache vitamin E 268 mg (400 unit) capsule 400 unit PO QAM 03/08/18 12/02/24 valacyclovir 500 mg tablet 500 mg PO HS 11/18/18 12/02/24 Lactobacillus acidophilus 10 1.75 cell PO QAM 11/28/18 12/02/24 billion cell capsule (Probiotic) cyanocobalamin (vitamin B-12) 1,000 mcg PO QDL 03/08/20 12/02/24 1,000 mcg capsule cimetidine 400 mg tablet 400 mg PO TID 09/06/20 12/02/24 topiramate 100 mg tablet 100 mg PO AMHS 09/06/20 12/02/24 cholecalciferol (vitamin D3) 50 50 mcg PO QDD 10/13/20 12/02/24 mcg (2,000 unit) tablet calcium 250 mg (as 1 tab PO TID 07/29/21 12/02/24 citrate)-vitamin D3 5 mcg (200 unit) tablet ascorbic acid (vitamin C) 1,000 mg 1 g PO QDD 09/15/22 12/02/24 tablet (Vitamin C) duloxetine 30 mg capsule,delayed 30 mg PO QDD 12/02/24 12/02/24 release duloxetine 60 mg capsule,delayed 60 mg PO QDD 12/02/24 12/02/24 release levothyroxine 100 mcg tablet 100 mcg PO DAILYBB 12/02/24 12/02/24 rvlgiwhp-qos-paejor 5 mg-zeaxanth 1 cap PO QAM 12/02/24 12/02/24 1 mg-bilberry 7.5 mg-herbal capsule (Clarim[employer] Formula) omeprazole 1 tab PO UD 12/02/24 12/02/24 trazodone 50 mg tablet 25 mg PO HS 12/02/24 12/02/24 Previous Rx's Medication Instructions Recorded estradiol 0.01% (0.1 mg/gram) 1 g vaginal DAILY PRN Vaginal 12/07/22 vaginal cream Dryness #42.5 grams Prolia 60 mg/mL subcutaneous 60 mg subcut ONCE #1 mL 01/04/23 syringe (denosumab) nitroglycerin 0.4 mg sublingual 0.4 mg sublingual UD PRN Chest 02/11/24 tablet Pain #100 tabs amlodipine 2.5 mg tablet 2.5 mg PO QPM #100 tabs 09/29/24 Results & Data (ED) Vital Signs Vital Signs - 24 hr 12/02/24 13:34 12/02/24 14:00 12/02/24 14:00 Temperature 36.6 C Temperature Source Oral Pulse Rate 95 H 90 Pulse Rate from SpO2 Sensor 76 Pulse Rhythm Regular Pulse Strength Normal Respiratory Rate 20 13 Respiratory Effort / Characteristics Non-Labored Spontaneous Respiratory Depth Normal Respiratory Pattern Regular Blood Pressure 132/96 130/93 Blood Pressure Mean 108 113 Blood Pressure Position Sitting Pulse Oximetry 96 92 Oxygen Delivery Method Room Air Sepsis Recent Fever Within 48 Hours No Sepsis New/Unexplained Change in Mental Status N/A Sepsis Action Taken by Nursing No Action Required 12/02/24 14:30 12/02/24 15:06 12/02/24 15:15 Temperature Temperature Source Pulse Rate 97 H 93 H 88 Pulse Rate from SpO2 Sensor 88 88 Pulse Rhythm Pulse Strength Respiratory Rate 18 15 12 Respiratory Effort / Characteristics Respiratory Depth Respiratory Pattern Blood Pressure Blood Pressure Mean Blood Pressure Position Pulse Oximetry 85 L 96 Oxygen Delivery Method Sepsis Recent Fever Within 48 Hours Sepsis New/Unexplained Change in Mental Status Sepsis Action Taken by Nursing 12/02/24 15:18 12/02/24 15:19 12/02/24 15:20 Temperature Temperature Source Pulse Rate Pulse Rate from SpO2 Sensor Pulse Rhythm Pulse Strength Respiratory Rate Respiratory Effort / Characteristics Respiratory Depth Respiratory Pattern Blood Pressure 124/92 Blood Pressure Mean 98 Blood Pressure Position Pulse Oximetry 93 94 Oxygen Delivery Method Room Air Room Air Sepsis Recent Fever Within 48 Hours Sepsis New/Unexplained Change in Mental Status Sepsis Action Taken by Nursing 12/02/24 16:00 Temperature Temperature Source Pulse Rate 92 H Pulse Rate from SpO2 Sensor 89 Pulse Rhythm Pulse Strength Respiratory Rate 17 Respiratory Effort / Characteristics Respiratory Depth Respiratory Pattern Blood Pressure 122/89 Blood Pressure Mean 100 Blood Pressure Position Pulse Oximetry 96 Oxygen Delivery Method Room Air Sepsis Recent Fever Within 48 Hours Sepsis New/Unexplained Change in Mental Status Sepsis Action Taken by Intermediate Medications Current Medication List: was personally reviewed by me Laboratory Data Attestation: I reviewed the patient's lab results. 12/02/24 13:44 12/02/24 13:44 Lab Results 12/02/24 12/02/24 12/02/24 Range/Units 13:44 15:00 15:05 WBC 12.92 H (4.8-10.8) K/ul RBC 4.27 (4.20-5.40) M/uL Hgb 13.7 (12.0-16.0) g/dl Hct 43.2 (37.0-47.0) % MCV 101.2 H (80.0-100.0) fL MCH 32.1 (25.0-34.0) pg MCHC 31.7 L (32.0-36.0) g/dL RDW Std Deviation 54.3 H (36.4-46.3) fL RDW Coeff of Edmar 14.6 H (11.5-14.5) % Plt Count 291 (130-400) K/uL MPV 11.6 (9.4-12.4) fL Immature Gran % (Auto) 0.3 % Neut % (Auto) 74.3 % Lymph % (Auto) 16.1 % [place] % (Auto) 7.8 % Eos % (Auto) 0.6 % Baso % (Auto) 0.9 % Neut # (Auto) 9.59 H (1.40-6.50) K/uL Lymph # (Auto) 2.08 (1.20-3.40) K/uL [place] # (Auto) 1.01 H (0.11-0.59) K/uL Eos # (Auto) 0.08 (0.00-0.50) K/uL Baso # (Auto) 0.12 (0.00-0.20) K/uL Immature Gran # (Auto) 0.04 (0.01-0.20) K/uL PT 10.6 (9.0-12.0) Seconds INR 1.0 (0.9-1.1) APTT 27 (21-31) Seconds PTT Ratio 1.0 D-Dimer 490 (0-500) ug/L FEU Sodium 138 (136-145) mmol/L Potassium 4.1 (3.5-5.1) mmol/L Chloride 109 H (98-107) mmol/L Carbon Dioxide 23 (21-32) mmol/L Anion Gap 6 (3-11) BUN 13 (6-23) mg/dl Creatinine 1.00 (0.6-1.2) mg/dl Est Cr Clr Drug Dosing 39.0 ml/min eGFR 59.12 BUN/Creatinine Ratio 13.0 (10-20) Glucose 106 H (70-99(Fasting)) mg/dl Calcium 9.0 (8.6-10.3) mg/dl Magnesium 2.1 (1.7-2.4) mg/dl Total Bilirubin 0.8 (0.2-1.0) mg/dl AST 28 (13-39) U/L ALT 22 (7-52) U/L Alkaline Phosphatase 78 (34-104) U/L Troponin I High Sens 233.0 H* (0-14) pg/ml B-Natriuretic Peptide 2605 H (0-100) pg/ml Total Protein 6.9 (6.0-8.3) gm/dl Albumin 4.0 (3.4-5.0) gm/dl Globulin 2.9 (2.5-4.0) gm/dl Albumin/Globulin Ratio 1.4 (0.9-2) Urine Color Dark Yellow Urine Appearance Cloudy A (Clear) Urine pH 6.5 (4.5-7.5) Ur Specific [place] 1.017 (1.000-1.030) Urine Protein 2+ H (Negative) Urine Glucose (UA) Negative (Negative) Urine Ketones Trace H (Negative) Urine Blood Negative (Negative) Urine Nitrite Positive A (Negative) Urine Bilirubin Negative (Negative) Urine Urobilinogen Negative (Negative) Ur Leukocyte Esterase 3+ H (Negative) Urine WBC (Auto) >50 H (0-5) /hpf Urine RBC (Auto) 0-2 (0-2) /hpf U Hyaline Cast (Auto) 3-5 H (0-2) /lpf U Epithel Cells (Auto) 0-2 (0-2) /hpf Urine Bacteria (Auto) 4+ H (None Seen) Urine Comment Adenovirus (PCR) Not Detected (NotDetected) B. pertussis DNA (PCR) Not Detected (NotDetected) B.parapertussis DNA PCR Not Detected (NotDetected) C. pneumoniae DNA (PCR) Not Detected (NotDetected) Coronavirus OC43 (PCR) Not Detected (NotDetected) Coronavirus HKU1 (PCR) Not Detected (NotDetected) Coronavirus 229E (PCR) Not Detected (NotDetected) SARS-CoV-2 (PCR) Not Detected (NotDetected) Coronavirus NL63 (PCR) Not Detected (NotDetected) Human Metapneumovir PCR Not Detected (NotDetected) Influenza Type A (PCR) Not Detected (NotDetected) Influenza Type B (PCR) Not Detected (NotDetected) M. pneumoniae (PCR) Not Detected (NotDetected) Parainfluenza 1 (PCR) Not Detected (NotDetected) Parainfluenza 2 (PCR) Not Detected (NotDetected) Parainfluenza 3 (PCR) Not Detected (NotDetected) Parainfluenza 4 (PCR) Not Detected (NotDetected) RSV (PCR) Not Detected (NotDetected) Entero/Rhino (PCR) Not Detected (NotDetected) 12/02/24 Range/Units 16:24 WBC (4.8-10.8) K/ul RBC (4.20-5.40) M/uL Hgb (12.0-16.0) g/dl Hct (37.0-47.0) % MCV (80.0-100.0) fL MCH (25.0-34.0) pg MCHC (32.0-36.0) g/dL RDW Std Deviation (36.4-46.3) fL RDW Coeff of Edmar (11.5-14.5) % Plt Count (130-400) K/uL MPV (9.4-12.4) fL Immature Gran % (Auto) % Neut % (Auto) % Lymph % (Auto) % [place] % (Auto) % Eos % (Auto) % Baso % (Auto) % Neut # (Auto) (1.40-6.50) K/uL Lymph # (Auto) (1.20-3.40) K/uL [place] # (Auto) (0.11-0.59) K/uL Eos # (Auto) (0.00-0.50) K/uL Baso # (Auto) (0.00-0.20) K/uL Immature Gran # (Auto) (0.01-0.20) K/uL PT (9.0-12.0) Seconds INR (0.9-1.1) APTT (21-31) Seconds PTT Ratio D-Dimer (0-500) ug/L FEU Sodium (136-145) mmol/L Potassium (3.5-5.1) mmol/L Chloride (98-107) mmol/L Carbon Dioxide (21-32) mmol/L Anion Gap (3-11) BUN (6-23) mg/dl Creatinine (0.6-1.2) mg/dl Est Cr Clr Drug Dosing ml/min eGFR BUN/Creatinine Ratio (10-20) Glucose (70-99(Fasting)) mg/dl Calcium (8.6-10.3) mg/dl Magnesium (1.7-2.4) mg/dl Total Bilirubin (0.2-1.0) mg/dl AST (13-39) U/L ALT (7-52) U/L Alkaline Phosphatase (34-104) U/L Troponin I High Sens 245.1 H* (0-14) pg/ml B-Natriuretic Peptide (0-100) pg/ml Total Protein (6.0-8.3) gm/dl Albumin (3.4-5.0) gm/dl Globulin (2.5-4.0) gm/dl Albumin/Globulin Ratio (0.9-2) Urine Color Urine Appearance (Clear) Urine pH (4.5-7.5) Ur Specific [place] (1.000-1.030) Urine Protein (Negative) Urine Glucose (UA) (Negative) Urine Ketones (Negative) Urine Blood (Negative) Urine Nitrite (Negative) Urine Bilirubin (Negative) Urine Urobilinogen (Negative) Ur Leukocyte Esterase (Negative) Urine WBC (Auto) (0-5) /hpf Urine RBC (Auto) (0-2) /hpf U Hyaline Cast (Auto) (0-2) /lpf U Epithel Cells (Auto) (0-2) /hpf Urine Bacteria (Auto) (None Seen) Urine Comment Adenovirus (PCR) (NotDetected) B. pertussis DNA (PCR) (NotDetected) B.parapertussis DNA PCR (NotDetected) C. pneumoniae DNA (PCR) (NotDetected) Coronavirus OC43 (PCR) (NotDetected) Coronavirus HKU1 (PCR) (NotDetected) Coronavirus 229E (PCR) (NotDetected) SARS-CoV-2 (PCR) (NotDetected) Coronavirus NL63 (PCR) (NotDetected) Human Metapneumovir PCR (NotDetected) Influenza Type A (PCR) (NotDetected) Influenza Type B (PCR) (NotDetected) M. pneumoniae (PCR) (NotDetected) Parainfluenza 1 (PCR) (NotDetected) Parainfluenza 2 (PCR) (NotDetected) Parainfluenza 3 (PCR) (NotDetected) Parainfluenza 4 (PCR) (NotDetected) RSV (PCR) (NotDetected) Entero/Rhino (PCR) (NotDetected) Administered Medications Amlodipine Besylate (Amlodipine Besylate 5 Mg Tab) 2.5 mg PO QPM BERTRAND Stop: 01/01/25 20:59 Last Admin: 12/02/24 22:30 Dose: 2.5 mg Documented By: TOYIN Multivitamins/Minerals (Cerovite Adv Formula Tab) 1 tab PO BID BERTRAND Stop: 01/01/25 20:59 Last Admin: 12/02/24 22:30 Dose: 1 tab Documented By: TOYIN Topiramate (Topiramate 100 Mg Tab) 100 mg PO AMHS BERTRAND Stop: 01/01/25 20:59 Last Admin: 12/02/24 22:31 Dose: 100 mg Documented By: TOYIN Valacyclovir HCl (Valacyclovir Hcl 500 Mg Tablet) 500 mg PO HS BERTRAND Stop: 01/01/25 20:59 Last Admin: 12/02/24 22:31 Dose: 500 mg Documented By: TOYIN Discontinued Medications Furosemide (Furosemide Inj 20 Mg/2 Ml Vial) 20 mg IV ONE ONE Stop: 12/02/24 15:45 Last Admin: 12/02/24 17:40 Dose: 20 mg Documented By: ELSA Ceftriaxone Sodium (Rocephin) 2,000 mg in 50 mls @ 100 mls/hr IV NOW STA Stop: 12/02/24 16:05 Last Infusion: 12/02/24 17:49 Dose: Infused Documented By: Admin: 12/02/24 17:18 Dose: 100 mls/hr Documented By: ELSA Imaging Data Radiologist's Impression: Chest X-Ray 12/02/24 14:16 XR chest 1V portable CLINICAL HISTORY: Dyspnea COMPARISON STUDY: 09/15/2022 FINDINGS: There is mild cardiomegaly with mild pulmonary vascular congestion. There are small bilateral pleural effusions. No pneumothorax. IMPRESSION: CHF with small bilateral pleural effusions. ACT 112: Negative or not required by law. Electronically signed by: Jose Angel Menjivar M.D. 12/02/2024 3:54 PM Discharge Plan Visit Data Chief Complaint: Shortness of Breath/Dyspnea Stated Complaint: SOB, UTI ED Provider: Abrahan Joel Discharge Problem: MONROE (dyspnea on exertion), Elevated troponin, Urinary tract infection Patient Disposition: Admitted As Inpatient Condition: Good Discharge Instructions Interventions: ED Discharge Assessment Last Done: 12/02/24 17:21 Discharge Problem: Urinary tract infection Qualifiers: Urinary tract infection type: acute cystitis
[2024-12-02 14:42] LABS: Hematocrit (blood only) 43.2 % (37.0-47.0); Hemoglobin 13.7 g/dl (12.0-16.0); Immature Granulocytes # (auto) 0.04 K/uL (0.01-0.20); Immature Granulocytes % (auto) 0.3 %; Mean Corpuscular Hemoglobin 32.1 pg (25.0-34.0); Mean Corpuscular Volume 101.2 fL (80.0-100.0); Platelet Count 291 K/uL (130-400); RDW Standard Deviation 54.3 fL (36.4-46.3); Red Blood Count 4.27 M/uL (4.20-5.40); White Blood Count 12.92 K/ul (4.8-10.8)
[2024-12-02 15:03] LABS: Alanine Aminotransferase 22.0 U/L (7-52); Albumin Globulin Ratio 1.4 (0.9-2); Alkaline Phosphatase 78.0 U/L (34-104); Anion Gap 6.0 (3-11); Bilirubin,Total 0.8 mg/dl (0.2-1.0); Blood Urea Nitrogen 13.0 mg/dl (6-23); Calcium 9.0 mg/dl (8.6-10.3); Carbon Dioxide 23.0 mmol/L (21-32); Chloride 109.0 mmol/L (98-107); Creatinine Clr Calc Pharmacy 39.0 ml/min; Globulin 2.9 gm/dl (2.5-4.0); Glucose 106.0 mg/dl (70-99(Fasting)); Magnesium 2.1 mg/dl (1.7-2.4); Potassium 4.1 mmol/L (3.5-5.1); Sodium 138.0 mmol/L (136-145); Total Protein 6.9 gm/dl (6.0-8.3)
[2024-12-02 15:24] LABS: Appearance Urine Cloudy (Clear); Bacteria Urine Automated 4+ (None Seen); Epithelial Cell Urine Auto 0-2 /hpf (0-2); Glucose Urine UA Negative (Negative); RBC Urine Automated 0-2 /hpf (0-2); WBC Urine Automated >50 /hpf (0-5)
[2024-12-02 15:34] LABS: INR 1.0 (0.9-1.1); Partial Thromboplastin Time 27 Seconds (21-31); Prothrombin Time 10.6 Seconds (9.0-12.0)
--- NOTE | 2024-12-02 15:55 | XRay Report ---
XR chest 1V portable CLINICAL HISTORY: Dyspnea COMPARISON STUDY: 09/15/2022 FINDINGS: There is mild cardiomegaly with mild pulmonary vascular congestion. There are small bilater al pleural effusions. No pneumothorax. IMPRESSION: CHF with small bilateral pleural effusions. ACT 112: Negative or not required by law. Electronically signed by: Jose Angel Menjivar M.D. 12/02/2024 3:54 PM
--- NOTE | 2024-12-02 16:01 | History & Physical Report ---
Date of Service December 02, 2024 Assessment & Plan (1) MONROE (dyspnea on exertion): (2) Orthopnea: (3) Elevated troponin: (4) Urinary tract infection: (5) Hypertension: Plan Miryam is a 74-year-old female with a past medical history of hypertension, kidney stones, CKD 3, depression, and anxiety, hypothyroidism and osteoarthritis who presents to the ER with worsening shortness of breath and dyspnea on exertion. initial workup concerning for elevated BNP and fluid overload on chest x-ray with mild pleural effusions - admitted for CHF workup. #MONROE | Orthopnea - suspicious for new onset CHF with elevated BNP 2605 and CXR with concerns for pleural effusions. Biofire negative. Check Echo Lasix 20mg IV given in ER monitor response Strict I&O Symptoms and BNP seem disproportionate to physical exam - check dimer Monitor on tele for arrhythmia #Elevated troponin 233 on admission, trend #UTI - with multiple is the last three months. Symptomatic on admission with frequency and leukocytosis. Past cultures ecoli with some resistances Continue ceftriaxone Follow UC Consider Methenamine or D- mannose after completion of abx. Continue estrogen vaginal cream #HTN - continue amlodipine #Mental Health - continue Cymbalta Dispo: admit to med/tele DVT: lovenox updated at bedside 12/02 History of Present Illness Chief Complaint: MONROE Primary Care Provider: Amirah John Witt is a 74-year-old female with a past medical history of hypertension, kidney stones, CKD 3, depression, and anxiety, hypothyroidism and osteoarthritis who presents to the ER with worsening shortness of breath and dyspnea on exertion. States that this has been gradually increasing over the last 2 weeks however the reason she came in today she was seeing her PCP outpatient and got significantly short of breath walking to the appointment that she had to stop and catch her breath. She has not noticed any weight change. She has noticed over the last 2 weeks that she has had shortness of breath when lying flat. She normally is pretty active and does not use assistive devices. reports that she had 2 EKGs at her PCPs office that were "noisy" and sent over here. Only recent medication changes that she has been on and off antibiotics for the last 3 months for urinary tract infections. She does not wear briefs/depends, has been placed on estrogen vaginal cream for UTI prevention. Does have some urinary and stress incontinence No recent dietary changes She would like to be a DNR ED course: Lasix 20 mg IV x 1 Ceftriaxone 2 g IV Allergies Allergy/AdvReac Type Severity Reaction Status Date / Time Iodinated Contrast Media Allergy Severe anaphylaxis Verified 06/24/24 09:52 meloxicam Allergy Severe Unresponsiv Verified 06/24/24 09:52 e oxybutynin Allergy Severe Verified 06/24/24 09:52 diltiazem Allergy Unknown PT CAN'T Verified 06/24/24 09:52 REMEMBER RXN. ? NOT EFFECTIVE. penicillamine Allergy Unknown RASH, Verified 06/24/24 09:52 lupus-like rx Sulfa (Sulfonamide Allergy Unknown Rash Verified 06/24/24 09:52 Antibiotics) alendronate sodium AdvReac Unknown WASN'T Verified 06/24/24 09:52 EFFECTIVE gabapentin AdvReac Unknown hallucinati Verified 06/24/24 09:52 ons hydroxyzine AdvReac Unknown Nausea/DIZZ Verified 06/24/24 09:52 Y. mirtazapine [From Remeron] AdvReac Unknown Migraines/very Verified 06/24/24 09:52 lucid horrible dreams. NSAIDS (Non-Steroidal AdvReac Unknown WAS ON Verified 06/24/24 09:52 Anti-Inflamma HIGH DOSES CAUSED KIDNEY DAMAGE. venlafaxine [From Effexor] AdvReac Unknown Dizziness Verified 06/24/24 09:52 Cuprimine CAPS Allergy Unknown PT DOESN'T Uncoded 06/24/24 09:52 REMEMBER RX. Opioid Analgesics AdvReac Unknown N/V. Uncoded 06/24/24 09:52 Home Medications Medication Instructions Recorded Confirmed Type glucosamine sulfate 500 mg capsule 500 mg PO TID 03/08/18 12/02/24 History sumatriptan succinate 100 mg 100 mg PO DIRECTED PRN Migraine 03/08/18 12/02/24 History tablet (Imitrex) Headache vitamin E 268 mg (400 unit) capsule 400 unit PO QAM 03/08/18 12/02/24 History valacyclovir 500 mg tablet 500 mg PO HS 11/18/18 12/02/24 History Lactobacillus acidophilus 10 1.75 cell PO QAM 11/28/18 12/02/24 History billion cell capsule (Probiotic) cyanocobalamin (vitamin B-12) 1,000 mcg PO QDL 03/08/20 12/02/24 History 1,000 mcg capsule cimetidine 400 mg tablet 400 mg PO TID 09/06/20 12/02/24 History topiramate 100 mg tablet 100 mg PO AMHS 09/06/20 12/02/24 History cholecalciferol (vitamin D3) 50 50 mcg PO QDD 10/13/20 12/02/24 History mcg (2,000 unit) tablet calcium 250 mg (as 1 tab PO TID 07/29/21 12/02/24 History citrate)-vitamin D3 5 mcg (200 unit) tablet ascorbic acid (vitamin C) 1,000 mg 1 g PO QDD 09/15/22 12/02/24 History tablet (Vitamin C) estradiol 0.01% (0.1 mg/gram) 1 g vaginal DAILY PRN Vaginal 12/07/22 12/02/24 Rx vaginal cream Dryness #42.5 grams Prolia 60 mg/mL subcutaneous 60 mg subcut ONCE #1 mL 01/04/23 12/02/24 Rx syringe (denosumab) nitroglycerin 0.4 mg sublingual 0.4 mg sublingual UD PRN Chest 02/11/24 12/02/24 Rx tablet Pain #100 tabs amlodipine 2.5 mg tablet 2.5 mg PO QPM #100 tabs 09/29/24 12/02/24 Rx duloxetine 30 mg capsule,delayed 30 mg PO QDD 12/02/24 12/02/24 History release duloxetine 60 mg capsule,delayed 60 mg PO QDD 12/02/24 12/02/24 History release levothyroxine 100 mcg tablet 100 mcg PO DAILYBB 12/02/24 12/02/24 History pxojapew-yoy-lmozhw 5 mg-zeaxanth 1 cap PO QAM 12/02/24 12/02/24 History 1 mg-bilberry 7.5 mg-herbal capsule (Macular Health Formula) omeprazole 1 tab PO UD 12/02/24 12/02/24 History trazodone 50 mg tablet 25 mg PO HS 12/02/24 12/02/24 History Past Med/Surg History Problem List (Updated 12/02/24 @ 22:49 by Abrahan Joel MD) Orthopnea MONROE (dyspnea on exertion) (Acute) Urinary tract infection (Acute) Elevated troponin (Acute) Anxiety and depression GERD (gastroesophageal reflux disease) CKD (chronic kidney disease) Acute shoulder pain (Acute) Vaginal erosion PVCs (premature ventricular contractions) Mild mitral regurgitation Cervicalgia Acute renal insufficiency Non-ST elevation NC (NSTEMI) (Acute) Cystocele Prinzmetal's angina (Acute) Hypercholesterolemia Atypical chest pain Rib fracture left 9th rib- surgeon aware Cystocele Chest pain Acute non-ST elevation myocardial infarction (NSTEMI) NSTEMI (non-ST elevated myocardial infarction) Eosinophilic fasciitis On chronic H2 annemarie Hip fracture, pathological (09/10/13) Flank pain Femur fracture, left (09/11/13) Osteoporosis Medical History Hypertension Nausea Peritonitis HX 1960 Nausea and vomiting after administration of anesthetic agent Kidney stones hx Nephrolithiasis History of shingles on chronic Valtrex CKD (chronic kidney disease), stage III due to NSAID use- FOLLOWS WITH PCP, DR. SETH HARRISON/ [facility] Migraine HX - GETS OCCASIONALLY History of angina SEPTEMBER 2018.....Catheterization was negative....to see PCP before OR....finishing machine tender felt more musculoskeletal in origin...more details under notes..DO DOROTEO Depression Anxiety Hypothyroidism Osteoarthritis Surgical History History of left cataract surgery History of eye surgery AGE 2 History of surgery repair of left femur fx/hardware. History of colonoscopy H/O total hysterectomy with bilateral salpingo-oophorectomy (BSO) Age 25 for endometriosis. History of cardiac catheterization SEPTEMBER 2018- [facility]- NO STENTS- "EVERYTHING CLEAN PER PATIENT" FOLLOWS WITH DR. JIMENEZ History of appendectomy Family History Mother Dementia, Onset Age: 100 Family/Other Myocardial infarction Other Family history of diabetes mellitus in father No pertinent family history Denies family history of Ovarian cancer Prostate cancer Breast cancer Colorectal cancer Social History Smoking Status: Never smoker Second Hand Exposure: No; Do You Dip or Chew Tobacco: No; Hx Alcohol Use: No Hx Substance Use: No Preferred Language: Finnish Communication Ability: Effective Sex Worker Or Escort Required: No Beliefs That Will Affect Care: None Current Living Situation: Alone Current Living Situation Comment: Daughter (sveta) moved to [place] How many Children do You have: 2 Other Information That Helps Us Care for You: No Feels Safe at Home: Yes Safety Concerns: Feels Safe At This Time Assistive Devices: None Review of Systems Review of Systems: All systems reviewed & are unremarkable except as noted in Subjective Physical Exam Physical Exam: General: NAD, VS as above Resp: normal respiratory effort - mildly dyspneic with prolonged conversation, lungs diminished in bases CV: RRR, no murmur, Abd: normal bowel sounds, non tender, soft, nondistended Extremities: Moves all extremities, no pitting edema in the lower extremities Neuro: A&O x3, Skin: intact, no lesions noted Results & Data Results & Data Vital Signs (Past 12 Hours) Vital Signs Temp Pulse Resp BP Pulse Ox O2 Del Method 12/02/24 15:20 94 Room Air 12/02/24 15:19 93 Room Air 12/02/24 15:18 124/92 12/02/24 15:15 88 12 96 12/02/24 15:06 93 H 15 12/02/24 14:30 97 H 18 85 L 12/02/24 14:00 130/93 12/02/24 14:00 90 13 92 12/02/24 13:34 97.9 F 95 H 20 132/96 96 Room Air Laboratory Results CBC, chemistry, troponin and BNP reviewed UA reviewed BioFire reviewed Diagnostic Findings chest x-ray reviewed Supervising Physician Co-Signing Physician Notes Attending Attestation & Admit Note: Pt seen/examined, chart reviewed, admit care plan d/w LISSET Gutierrez. I agree w/ the coon components of her admission documentation. 74yo female with history of hypertension, kidney stones, CKD stage 3, depression, anxiety, hypothyroidism, and Prinzmetal's angina (negative cardiac cath 2019). Presents with 7+ days of orthopnea, PND, and worsening dyspnea on exertion. No weight gain. Denies LE edema. c/o recurrent UTIs over the last few months as well as fluctuating bowel habits (constipation, then diarrhea, then back to constipation). PMH/PSH/allergies/meds/sochx - reviewed VSS, o2 sats wnl in RA gen - lying in bed comfortably, NAD neck - JVD 2/3 way up neck at 30 degrees heart - irregular (PVCs), rate <100, s1 s2, 2/6 holosystolic murmur LLSB with radiation to left axillary area lungs - minimal b/l basilar rales, decreased BS bases, otherwise CTA b/l with no wheeze abd - soft NT ND BS+; +hepatojugular reflex ext - no edema, pulses 2+ b/l labs reviewed including elevated BNP and troponin CXR reviewed EKG - pending A/P: 1. clinical history, exam findings, elevated BNP, etc all highly suggestive of decompensated CHF - -IV lasix now -echo in am -has mitral regurg murmur (prior echo with mild MR) - check for MR progression -trend troponins, but doubt ischemia as her cath in 2019 showed no CAD -if not CHF - infectious process?? consider CT chest if other etiology for her symptoms (again, infectious process etc) is suspected 2. UTI - recurrent - consider repeat CT a/p - r/o obstructing stones, etc. -rocephin 3. fluctuating bowel habits - -check KUB to assess fecal load 4. hypothyroidism - -check TSH am Hayden Chicas MD PG Care Time/CCT Total # of Minutes Spent Total Time Spent with Patient: Total time spent is greater than 50% in coordination of care (as documented) at patient's floor/unit and/or counseling patient: Coding Level of Care Code 06008 INT INP/OBS CARE 3/75MIN Diagnoses MONROE (dyspnea on exertion) R06.09 Orthopnea R06.01 Elevated troponin R77.8 Urinary tract infection N39.0 Hypertension I10
[2024-12-02 16:17] LABS: Chlamydia pneumoniae PCR Not Detected (NotDetected); Coronavirus 229E PCR Not Detected (NotDetected); Coronavirus CoV-2 (COVID19)PCR Not Detected (NotDetected); Coronavirus HKU1 PCR Not Detected (NotDetected); Coronavirus NL63 PCR Not Detected (NotDetected); Coronavirus OC43PCR Not Detected (NotDetected); Human Metapneumovirus PCR Not Detected (NotDetected); Parainfluenza Virus 1 PCR Not Detected (NotDetected); Parainfluenza Virus 2 PCR Not Detected (NotDetected); Parainfluenza Virus 3 PCR Not Detected (NotDetected); Parainfluenza Virus 4 PCR Not Detected (NotDetected); Respiratory Syncytial VirusPCR Not Detected (NotDetected); Rhinovirus/Enterovirus PCR Not Detected (NotDetected)
[2024-12-02] MEDS: cefTRIAXone SODIUM 2,000 MG/50 ML BAG IV STA (17:18)
[2024-12-02] MEDS ORDERED: MELATONIN 3 MG TAB PO PRN (17:20)
[2024-12-02] MEDS ORDERED: POLYETHYLENE (MIRALAX) 17 GM PACK PO PRN (17:20)
[2024-12-02] MEDS: FUROSEMIDE INJ 20 MG/2 ML VIAL IV ONE (17:40)
[2024-12-02] MEDS ORDERED: PNEUMOCOCCAL VACCINE (PCV20) 20-VAL CONJ-DIP CRM/PF 0.5 ML SYR IM ONE (18:19)
[2024-12-02] MEDS: CEROVITE ADV FORMULA TAB PO SCH (22:30)
[2024-12-02] MEDS: TOPIRAMATE 100 MG TAB PO SCH (22:31)
[2024-12-02] MEDS: ONDANSETRON INJ 2 MG/ML 2 ML VIAL IV PRN (23:20)
[2024-12-03] MEDS ORDERED: ARTIFICIAL TEARS OPB PRN (05:13)
[2024-12-03] MEDS: LEVOTHYROXINE SODIUM 100 MCG TABLET PO SCH (06:19)
[2024-12-03 06:24] LABS: Hematocrit (blood only) 40.3 % (37.0-47.0); Hemoglobin 13.0 g/dl (12.0-16.0); Mean Corpuscular Hemoglobin 32.0 pg (25.0-34.0); Mean Corpuscular Volume 99.3 fL (80.0-100.0); Platelet Count 254 K/uL (130-400); RDW Standard Deviation 52.2 fL (36.4-46.3); Red Blood Count 4.06 M/uL (4.20-5.40); White Blood Count 10.70 K/ul (4.8-10.8)
[2024-12-03 06:58] LABS: Anion Gap 9.0 (3-11); Blood Urea Nitrogen 20.0 mg/dl (6-23); Calcium 8.7 mg/dl (8.6-10.3); Carbon Dioxide 20.0 mmol/L (21-32); Chloride 111.0 mmol/L (98-107); Creatinine Clr Calc Pharmacy 36.5 ml/min; Glucose 90.0 mg/dl (70-99(Fasting)); Potassium 3.8 mmol/L (3.5-5.1); Sodium 140.0 mmol/L (136-145)
[2024-12-03] MEDS: FAMOTIDINE 40 MG TABLET PO SCH (09:05)
[2024-12-03] MEDS: ADVANCED PROBIOTIC 625 MG CAPSULE PO SCH (09:05)
[2024-12-03] MEDS: ENOXAPARIN INJ 40 MG/0.4 ML SYR SQ SCH (09:06)
--- NOTE | 2024-12-03 10:46 | XRay Report ---
KUB HISTORY: fluctuating stools (constipation then diarrhea) COMPARISON STUDY: 10/23/2024 FINDINGS: There is moderate retained stool. No bowel obstruction seen. There are a few stable small r ight renal calculi. IMPRESSION: No acute findings. ACT 112: Negative or not required by law. The above report was generated using voice recognition software. It may contain grammatical, syntax o r spelling errors. Electronically signed by: Jose Angel Menjivar M.D. 12/03/2024 10:45 AM
[2024-12-03] MEDS: FUROSEMIDE 40 MG/4 ML VIAL IV SCH (10:55)
[2024-12-03] MEDS: ACETAMINOPHEN 325 MG TAB PO PRN (14:11)
--- NOTE | 2024-12-03 15:12 | Hospitalist Progress Note ---
"Date of Service December 03, 2024 Assessment & Plan (1) MONROE (dyspnea on exertion): (2) Orthopnea: (3) Elevated troponin: (4) Urinary tract infection: (5) Hypertension: Plan Miryam is a 74-year-old female with a past medical history of hypertension, kidney stones, CKD 3, depression, and anxiety, hypothyroidism and osteoarthritis who presents to the ER with worsening shortness of breath and dyspnea on exertion. initial workup concerning for elevated BNP and fluid overload on chest x-ray with mild pleural effusions - admitted for CHF workup. #MONROE | Orthopnea - suspicious for new onset CHF with elevated BNP 2605 and CXR with concerns for pleural effusions. Biofire negative. Check Echo Continue IV lasix Strict I&O Symptoms and BNP seem disproportionate to physical exam - dimer negative Monitor on tele for arrhythmia - none thus far #Elevated troponin 233 on admission, peaked at 245 no chest pain #UTI - with multiple is the last three months. Symptomatic on admission with frequency and leukocytosis. Past cultures ecoli with some resistances Continue ceftriaxone UC: ecoli - awaiting sensitivities Consider Methenamine or D- mannose after completion of abx. Continue estrogen va ginal cream #HTN - continue amlodipine #Mental Health - continue Cymbalta Dispo: continued inpatient stay, diuresing and awaitng echo DVT: lovenox updated at bedside 12/02 Admission and Anticipated Discharge Date Admission Date: December 02, 2024 Supervising Physician Co-Signing Physician Notes The patient was not seen by me. The chart was reviewed. Case discussed with LISSET Durbin. Agree with assessment and plan Subjective patient seen sitting up in bed, feeling a little better than yesterday, still some shortness of breath inconsistent bowels for a lng time Review of Systems Review of Systems: All systems reviewed & are unremarkable except as noted in Subjective Physical Exam Physical Exam: General: NAD, VS as above Resp: normal respiratory effort - no conversational dypnea today CV: RRR, no murmur, Abd: normal bowel sounds, non tender, soft, nondistended Extremities: Moves all extremities, no pitting edema in the lower extremities Neuro: A&O x3, Skin: intact, no lesions noted Results & Data Results & Data Vital Signs (Past 12 Hours) Vital Signs Temp Pulse Pulse Resp BP BP Pulse Ox 12/03/24 11:05 97.5 F L 85 20 108/69 95 12/03/24 07:47 97.5 F L 78 20 106/73 90 12/03/24 07:19 79 O2 Del Method 12/03/24 11:05 Room Air 12/03/24 07:47 Room Air 12/03/24 07:19 Laboratory Results cbc and chemsitry reviewed PG Care Time/CCT Total # of Minutes Spent Total Time Spent with Patient: Total time spent is greater than 50% in coordination of care (as documented) at patient's floor/unit and/or counseling patient: Coding Level of Care Code 86690 SUB INP/OBS CARE 3/50MIN Diagnoses MONROE (dyspnea on exertion) R06.09 Orthopnea R06.01 Elevated troponin R77.8 Urinary tract infection N39.0 Urinary tract infection type: acute cystitis Hypertension I10 (4) Urinary tract infection Urinary tract infection type: acute cystitis"
[2024-12-03] MEDS: cefTRIAXone SODIUM 2,000 MG/50 ML BAG IV SCH (17:23)
--- NOTE | 2024-12-03 18:43 | XCELERA ---
[id number] \\[email or web address]\[email or web address]_[email or web address]\[id number]
[2024-12-04 08:38] LABS: Anion Gap 7.0 (3-11); Blood Urea Nitrogen 28.0 mg/dl (6-23); Calcium 8.4 mg/dl (8.6-10.3); Carbon Dioxide 23.0 mmol/L (21-32); Chloride 108.0 mmol/L (98-107); Creatinine Clr Calc Pharmacy 33.4 ml/min; Glucose 99.0 mg/dl (70-99(Fasting)); Potassium 3.9 mmol/L (3.5-5.1); Sodium 138.0 mmol/L (136-145)
--- NOTE | 2024-12-04 10:39 | Cardiology Consultation ---
Date of Consultation December 04, 2024 Assessment & Plan (1) Acute HFrEF (heart failure with reduced ejection fraction): (2) Cardiomyopathy: (3) Mitral regurgitation: (4) Elevated troponin: (5) Nonsustained paroxysmal ventricular tachycardia: Plan ASSESSMENT/PLAN: 1. Acute heart failure with reduced EF: We discussed the diagnosis. She still appears hypervolemic. Continue intravenous diuresis with a goal of 1 to 2 L net negative fluid balance today. Discontinue amlodipine (to allow for more GDMT) and replace with carvedilol 3.125 mg twice daily. Recommend low-dose Entresto tomorrow if renal function remains stable. Would also recommend addition of spironolactone 25 mg daily if renal function remained stable following coronary angiography. No SGLT2 inhibitor due to recurrent UTI issues. We discussed the importance of a low-sodium diet, less than 2000 mg daily at home as well as performing daily weights at home. Heart failure program. 2. Cardiomyopathy: No significant CAD 6+ years ago but given recurrent chest discomfort, elevated troponins, and newly diagnosed reduced LV systolic function, recommend cardiac cath. Risk and benefits were discussed with her in detail and she is agreeable to proceed. Recommend IV steroids given concern for IV dye allergy. GDMT as above. If LV systolic function does not improve with standard therapy, consideration for ICD in the future after 3 months of therapy, if found to be nonischemic in nature. Other secondary workup can be done if nonischemic. 3. Mitral regurgitation: Appeared moderate on echo. Continue to monitor in the outpatient setting. 4. Elevated troponin: Plan as above. May be due to demand ischemia in the setting of acute heart failure. 5. Ventricular tachycardia: Nonsustained VT on monitor. Initiate carvedilol. 6. Disposition: Cardiology will continue to follow. I will be away after 5 PM this evening. Please call on-call remote pilot operator for any further questions or concerns. Patient care will be signed out to on-call remote pilot operator for the weekend. Follow-up in heart failure program and with primary remote pilot operator, Dr. Maldonado. Plan of care communicated with primary hospitalist service, Darcy Gutierrez PA-C. Highly complex medical issues. Thank you for allowing me to participate in the care of your patient. Please call for any other questions or concerns. Sincerely, Elvis Bah M.D. History of Present Illness Reason for Consultation: "new HFrEF" Requesting Physician: Darcy Gutierrez Attending Physician: Marlon Hobbs MD History of Present Illness Ms. Bean ('paul aj') is a very pleasant 74-year-old female with a history sign ificant for Prinzmetal angina, dyslipidemia, eosinophilic fasciitis, and PVCs. Her primary remote pilot operator is Dr. Maldonado. For the past few weeks, she has had gradually worsening dyspnea on exertion. Sy mptoms intensified on 12/02/2024 where she had to stop several times to catch her breath with simple walking. She typically is able to ambulate without issues. She also has been noting orthopnea but no significant edema. She maintains a low-sodium diet. She does not weigh herself. While here, she was diuresed by the primary hospitalist service and has had significant improvement and now denies orthopnea. She is not yet back to baseline however. Since being here, she has had left upper chest pressure at rest that typically resolve spontaneously within 1 minute. She denies any chest discomfort prior to presentation. She denies syncope, near syncope, palpitations, fevers, nausea, vomiting, or diarrhea. She had an episode of hematuria last night but denies any hematuria, melena, or hematochezia prehospital. She has been having issues with recurrent UTI since March and has been on and off antibiotics since then. She reports anaphylaxis with IV contrast in the past but states that she tolerated her cardiac catheterization on 10/18/2018 without issues. Review of systems: As above. Family history: No known premature CAD. Social history: She denies tobacco, alcohol, or drug abuse. She lives alone. x 1. Her second has since . She has 2 daughters ([place] and [place]). She was unaccompanied. Allergies Allergy/AdvReac Type Severity Reaction Status Date / Time Iodinated Contrast Media Allergy Severe anaphylaxis Verified 06/24/24 09:52 meloxicam Allergy Severe Unresponsiv Verified 06/24/24 09:52 e oxybutynin Allergy Severe Verified 06/24/24 09:52 diltiazem Allergy Unknown PT CAN'T Verified 06/24/24 09:52 REMEMBER RXN. ? NOT EFFECTIVE. penicillamine Allergy Unknown RASH, Verified 06/24/24 09:52 lupus-like rx Sulfa (Sulfonamide Allergy Unknown Rash Verified 06/24/24 09:52 Antibiotics) alendronate sodium AdvReac Unknown WASN'T Verified 06/24/24 09:52 EFFECTIVE gabapentin AdvReac Unknown hallucinati Verified 06/24/24 09:52 ons hydroxyzine AdvReac Unknown Nausea/DIZZ Verified 06/24/24 09:52 Y. mirtazapine [From Remeron] AdvReac Unknown Migraines/very Verified 06/24/24 09:52 lucid horrible dreams. NSAIDS (Non-Steroidal AdvReac Unknown WAS ON Verified 06/24/24 09:52 Anti-Inflamma HIGH DOSES CAUSED KIDNEY DAMAGE. venlafaxine [From Effexor] AdvReac Unknown Dizziness Verified 06/24/24 09:52 Cuprimine CAPS Allergy Unknown PT DOESN'T Uncoded 06/24/24 09:52 REMEMBER RX. Opioid Analgesics AdvReac Unknown N/V. Uncoded 06/24/24 09:52 Home Medications Medication Instructions Recorded Confirmed Type glucosamine sulfate 500 mg capsule 500 mg PO TID 03/08/18 12/02/24 History sumatriptan succinate 100 mg 100 mg PO DIRECTED PRN Migraine 03/08/18 12/02/24 History tablet (Imitrex) Headache vitamin E 268 mg (400 unit) capsule 400 unit PO QAM 03/08/18 12/02/24 History valacyclovir 500 mg tablet 500 mg PO HS 11/18/18 12/02/24 History Lactobacillus acidophilus 10 1.75 cell PO QAM 11/28/18 12/02/24 History billion cell capsule (Probiotic) cyanocobalamin (vitamin B-12) 1,000 mcg PO QDL 03/08/20 12/02/24 History 1,000 mcg capsule cimetidine 400 mg tablet 400 mg PO TID 09/06/20 12/02/24 History topiramate 100 mg tablet 100 mg PO AMHS 09/06/20 12/02/24 History cholecalciferol (vitamin D3) 50 50 mcg PO QDD 10/13/20 12/02/24 History mcg (2,000 unit) tablet calcium 250 mg (as 1 tab PO TID 07/29/21 12/02/24 History citrate)-vitamin D3 5 mcg (200 unit) tablet ascorbic acid (vitamin C) 1,000 mg 1 g PO QDD 09/15/22 12/02/24 History tablet (Vitamin C) estradiol 0.01% (0.1 mg/gram) 1 g vaginal DAILY PRN Vaginal 12/07/22 12/02/24 Rx vaginal cream Dryness #42.5 grams Prolia 60 mg/mL subcutaneous 60 mg subcut ONCE #1 mL 01/04/23 12/02/24 Rx syringe (denosumab) nitroglycerin 0.4 mg sublingual 0.4 mg sublingual UD PRN Chest 02/11/24 12/02/24 Rx tablet Pain #100 tabs amlodipine 2.5 mg tablet 2.5 mg PO QPM #100 tabs 09/29/24 12/02/24 Rx duloxetine 30 mg capsule,delayed 30 mg PO QDD 12/02/24 12/02/24 History release duloxetine 60 mg capsule,delayed 60 mg PO QDD 12/02/24 12/02/24 History release levothyroxine 100 mcg tablet 100 mcg PO DAILYBB 12/02/24 12/02/24 History vyksttzj-vvl-pwslww 5 mg-zeaxanth 1 cap PO QAM 12/02/24 12/02/24 History 1 mg-bilberry 7.5 mg-herbal capsule (Macular Health Formula) omeprazole 1 tab PO UD 12/02/24 12/02/24 History trazodone 50 mg tablet 25 mg PO HS 12/02/24 12/02/24 History Patient History Medical History Hypertension Nausea Peritonitis HX 1960 Nausea and vomiting after administration of anesthetic agent Kidney stones hx Nephrolithiasis History of shingles on chronic Valtrex CKD (chronic kidney disease), stage III due to NSAID use- FOLLOWS WITH PCP, DR. ESTH HARRISON/ [facility] Migraine HX - GETS OCCASIONALLY History of angina SEPTEMBER 2018.....Catheterization was negative....to see PCP before OR....remote pilot operator felt more musculoskeletal in origin...more details under notes..DO DOROTEO Depression Anxiety Hypothyroidism Osteoarthritis Surgical History History of left cataract surgery History of eye surgery AGE 2 History of surgery repair of left femur fx/hardware. History of colonoscopy H/O total hysterectomy with bilateral salpingo-oophorectomy (BSO) Age 25 for endometriosis. History of cardiac catheterization SEPTEMBER 2018- [facility]- NO STENTS- "EVERYTHING CLEAN PER PATIENT" FOLLOWS WITH DR. MALDONADO History of appendectomy Family History Mother Dementia, Onset Age: 100 Family/Other Myocardial infarction Other Family history of diabetes mellitus in father No pertinent family history Denies family history of Ovarian cancer Prostate cancer Breast cancer Colorectal cancer Social History Smoking Status: Never smoker Second Hand Exposure: No; Do You Dip or Chew Tobacco: No; Hx Alcohol Use: No Hx Substance Use: No Preferred Language: Georgian Communication Ability: Effective Instructional Supervisor Required: No Beliefs That Will Affect Care: None Current Living Situation: Alone Current Living Situation Comment: Daughter (sveta) moved to [place] How many Children do You have: 2 Other Information That Helps Us Care for You: No Feels Safe at Home: Yes Safety Concerns: Feels Safe At This Time Assistive Devices: None Physical Exam Physical Exam: Gen.: No acute distress. Alert and oriented. HEENT: Anicteric sclera. Neck: JVD nearly to the mandible with head elevated approximately 45 degrees. Hepatojugular reflux noted. No bruits. Normal carotid upstrokes bilaterally. Cardiac: Regular. Normal S1-S2. 2/6 holosystolic murmur heard at the apex. Pulmonary: Clear to auscultation bilaterally without wheezes, rales, or rhonchi. Abdomen: Soft, nontender, nondistended, with normoactive bowel sounds. No bruits noted. Extremities: 2+ radial pulses bilaterally. 2+ posterior tibialis pulses bilaterally. No edema or cyanosis. Results & Data Vital Signs (Past 12 Hours) Vital Signs Temp Pulse Pulse Resp BP Pulse Ox O2 Del Method 12/04/24 08:25 Room Air 12/04/24 07:41 36.8 C 73 18 106/71 92 Room Air 12/04/24 07:00 85 12/04/24 04:46 36.7 C 76 18 105/70 95 Room Air 12/04/24 02:37 36.8 C 80 16 94/63 L 91 Room Air 12/04/24 00:41 85 12/03/24 22:40 36.4 C L 82 16 100/67 92 Room Air Intake & Output 12/02/24 12/03/24 12/04/24 12/05/24 06:59 06:59 06:59 06:59 Intake Total 490 / 490 1040 / 1040 Output Total 500 / 500 1800 / 1800 450 / 450 Balance -10 / -10 -760 / -760 -450 / -450 Weight 123 lb 7.342 oz 123 lb 14.397 oz Laboratory Results Laboratory Results - last 24 hr 12/04/24 07:14 Sodium 138 Potassium 3.9 Chloride 108 H Carbon Dioxide 23 Anion Gap 7 BUN 28 H Creatinine 1.17 Est Cr Clr Drug Dosing 33.4 eGFR 48.97 BUN/Creatinine Ratio 23.9 H Glucose 99 Calcium 8.4 L Diagnostic Findings Telemetry personally reviewed sinus rhythm. Nonsustained ventricular tachycardia of less than 6 beats in duration noted. Echo 12/03/2024: Mildly dilated LV. EF 25-30%. Akinesis of the mid inferolateral wall. Otherwise global hypokinesis with relative sparing of the basal anterolateral wall. No LVH. Moderately dilated RV with normal systolic function. Moderate biatrial dilation. Restricted posterior mitral leaflet with moderate MR. Normal RVSP. ECG personally reviewed 12/02/2024 at 2101: Sinus rhythm 97 bpm. PVCs. RBBB. LAFB. History and physical report reviewed. Outpatient cardiology note reviewed from 01/09/2024. Labs reviewed and notable for elevated BNP, peak high-sensitivity troponin 245, normal potassium, stable renal function, normal magnesium, normal transaminase levels, normal TSH, normal blood counts. Medications Administered Current Inpatient Medications Acetaminophen (Acetaminophen 325 Mg Tab) 650 mg PO Q4H PRN PRN Reason: Pain or Fever Stop: 01/01/25 17:19 Last Admin: 12/03/24 23:18 Dose: 650 mg Amlodipine Besylate (Amlodipine Besylate 5 Mg Tab) 2.5 mg PO QPM [facility] Stop: 01/01/25 20:59 Last Admin: 12/03/24 21:02 Dose: 2.5 mg Artificial Tears (Artificial Tears) 1 drops OPB QID PRN PRN Reason: Dryness Stop: 01/02/25 05:12 Bisacodyl (Bisacodyl 5 Mg Tabec) 5 mg PO DAILY PRN PRN Reason: Constipation Stop: 01/03/25 09:38 Cimetidine (Order Awaiting Action: Cimetidine) 400 mg PO TID [facility] Stop: 01/02/25 21:29 Last Admin: 12/04/24 09:24 Dose: 400 mg Duloxetine HCl (Duloxetine Hcl 30 Mg Cap) 30 mg PO QDD [facility] Stop: 01/02/25 16:29 Last Admin: 12/03/24 17:26 Dose: 30 mg Duloxetine HCl (Duloxetine Hcl 60 Mg Cap) 60 mg PO QDD [facility] Stop: 01/02/25 16:29 Last Admin: 12/03/24 17:26 Dose: 60 mg Enoxaparin Sodium (Enoxaparin Inj 40 Mg/0.4 Ml Syr) 40 mg SQ Q24H [facility] Stop: 01/02/25 08:59 Last Admin: 12/04/24 09:24 Dose: 40 mg Furosemide (Furosemide 40 Mg/4 Ml Vial) 40 mg IV QAM [facility] Stop: 01/02/25 09:14 Last Admin: 12/04/24 09:24 Dose: 40 mg Ceftriaxone Sodium (Rocephin) 2,000 mg in 50 mls @ 100 mls/hr IV Q24H [facility] Stop: 12/08/24 16:29 Last Infusion: 12/03/24 17:54 Dose: Infused Lactobacillus Acidophilus (Advanced Probiotic 625 Mg Capsule) 625 mg PO QAM [facility] Stop: 01/02/25 08:59 Last Admin: 12/04/24 09:24 Dose: 625 mg Levothyroxine Sodium (Levothyroxine Sodium 100 Mcg Tablet) 100 mcg PO DAILYBB [facility] Stop: 01/02/25 06:29 Last Admin: 12/04/24 06:18 Dose: 100 mcg Melatonin (Melatonin 3 Mg Tab) 3 mg PO HS PRN PRN Reason: Sleep Stop: 01/01/25 17:19 Multivitamins/Minerals (Cerovite Adv Formula Tab) 1 tab PO BID [facility] Stop: 01/01/25 20:59 Last Admin: 12/04/24 09:24 Dose: 1 tab Ondansetron HCl (Ondansetron Inj 2 Mg/Ml 2 Ml Vial) 4 mg IV Q6H PRN PRN Reason: Nausea Stop: 01/01/25 17:19 Last Admin: 12/02/24 23:20 Dose: 4 mg Pantoprazole Sodium (Pantoprazole 40 Mg Tab) 40 mg PO QAM [facility] Stop: 01/02/25 08:59 Last Admin: 12/04/24 09:24 Dose: 40 mg Polyethylene Glycol (Polyethylene (Miralax) 17 Gm Pack) 17 gm PO DAILY PRN PRN Reason: Constipation Stop: 01/01/25 17:19 Topiramate (Topiramate 100 Mg Tab) 100 mg PO AMHS [facility] Stop: 01/01/25 20:59 Last Admin: 12/04/24 09:24 Dose: 100 mg Trazodone HCl (Trazodone Hcl 50 Mg Tab) 25 mg PO HS [facility] Stop: 01/02/25 20:59 Last Admin: 12/03/24 21:02 Dose: 25 mg Valacyclovir HCl (Valacyclovir Hcl 500 Mg Tablet) 500 mg PO HS [facility] Stop: 01/01/25 20:59 Last Admin: 12/03/24 21:02 Dose: 500 mg PG Care Time/CCT Total # of Minutes Spent Total Time Spent with Patient: Total time spent is greater than 50% in coordination of care (as documented) at patient's floor/unit and/or counseling patient: Coding Level of Care Code 54681 INT INP/OBS CARE 3/75MIN Diagnoses Acute HFrEF (heart failure with reduced ejection fraction) I50.21 Cardiomyopathy I42.9 Mitral regurgitation I34.0 Elevated troponin R77.8 Nonsustained paroxysmal ventricular tachycardia I47.29
--- NOTE | 2024-12-04 11:38 | Hospitalist Progress Note ---
"Date of Service December 04, 2024 Assessment & Plan (1) MONROE (dyspnea on exertion): (2) Orthopnea: (3) Elevated troponin: (4) Urinary tract infection: (5) Hypertension: Plan Miryam is a 74-year-old female with a past medical history of hypertension, kidney stones, CKD 3, depression, and anxiety, hypothyroidism and osteoarthritis who presents to the ER with worsening shortness of breath and dyspnea on exertion. initial workup concerning for elevated BNP and fluid overload on chest x-ray with mild pleural effusions - admitted for CHF workup. #MONROE | Orthopnea | New HFrEF - suspicious for new onset CHF with elevated BNP 2605 and CXR with concerns for pleural effusions. Biofire negative. Echo with EF 25-30%, akinesis of mild inferior lateral wall and global hypokinesis. No left ventricular hypertrophy bilateral atrial dilation. Cardiology consultedinitiating GDMT, plan for heart cath today. Will need outpatient CHF clinic f/u Continue IV lasix Strict I&O #Elevated troponin 233 on admission, peaked at 245 plan for heart cath as above #UTI - with multiple is the last three months. Symptomatic on admission with frequency and leukocytosis. Continue ceftriaxone - E.coli is sensitive Consider Methenamine or D- mannose after completion of abx. Continue estrogen vaginal cream #HTN - amlodipine discontinued to allow for GDMT, management per cardiology #Mental Health - continue Cymbalta Dispo: continued inpatient stay, transfer to PCU for s/p cath DVT: lovenox Follow-ups on discharge: Cardiology, CHF clinic updated at bedside 12/[address] Bah Admission and Anticipated Discharge Date Admission Date: December 02, 2024 Subjective patient seen this morning. Feeling much better was able to ambulate in the halls yesterday without getting short of breath. Does relate that this is less than what she normally does walk, but she is happy with the improvement does never want to feel like that again. We discussed her echo results and that cardiology was consulted. She was surprised that this has happened to her. In regards to her bowels she had a small bowel movement in the ER but no bowel movement since would like Dulcolax today. Telemetry sinus rhythm 80s and 90s Review of Systems Review of Systems: All systems reviewed & are unremarkable except as noted in Subjective Physical Exam Physical Exam: General: NAD, VS as above Resp: normal respiratory effort - no conversational dypnea today CV: RRR, no murmur, Abd: normal bowel sounds, non tender, soft, nondistended Extremities: Moves all extremities, no pitting edema in the lower extremities Neuro: A&O x3, Skin: intact, no lesions noted Results & Data Results & Data Vital Signs (Past 12 Hours) Vital Signs Temp Pulse Pulse Resp BP BP Pulse Ox 12/04/24 11:24 97.7 F 82 20 105/70 93 12/04/24 08:25 12/04/24 07:41 98.2 F 73 18 106/71 92 12/04/24 07:00 85 12/04/24 04:46 98.1 F 76 18 105/70 95 12/04/24 02:37 98.2 F 80 16 94/63 L 91 12/04/24 00:41 85 O2 Del Method 12/04/24 11:24 Room Air 12/04/24 08:25 Room Air 12/04/24 07:41 Room Air 12/04/24 07:00 12/04/24 04:46 Room Air 12/04/24 02:37 Room Air 12/04/24 00:41 Laboratory Results chemistry reviewed PG Care Time/CCT Total # of Minutes Spent Total Time Spent with Patient: Total time spent is greater than 50% in coordination of care (as documented) at patient's floor/unit and/or counseling patient: Coding Level of Care Code 74310 SUB INP/OBS CARE 3/50MIN Diagnoses MONROE (dyspnea on exertion) R06.09 Orthopnea R06.01 Elevated troponin R77.8 Urinary tract infection N39.0 Urinary tract infection type: acute cystitis Hypertension I10 (4) Urinary tract infection Urinary tract infection type: acute cystitis"
[2024-12-04] MEDS: ASPIRIN 81 MG CHEW ONE (13:32)
[2024-12-04] MEDS: FAMOTIDINE 20MG/5ML IV PUSH IV ONE (13:38)
--- NOTE | 2024-12-04 14:11 | Pre Anesthesia Assessment ---
Date of Service December 04, 2024 Pre Sedation Assessment Vital Signs Temp Pulse Pulse Resp BP BP Pulse Ox 12/04/24 13:05 36.6 C 84 18 131/85 98 12/04/24 11:24 36.5 C 82 20 105/70 93 12/04/24 08:25 12/04/24 07:41 36.8 C 73 18 106/71 92 12/04/24 07:00 85 12/04/24 04:46 36.7 C 76 18 105/70 95 12/04/24 02:37 36.8 C 80 16 94/63 L 91 12/04/24 00:41 85 12/03/24 22:40 36.4 C L 82 16 100/67 92 12/03/24 19:50 12/03/24 19:30 36.6 C 82 18 101/70 95 12/03/24 15:30 36.6 C 81 20 115/82 94 O2 Del Method 12/04/24 13:05 Room Air 12/04/24 11:24 Room Air 12/04/24 08:25 Room Air 12/04/24 07:41 Room Air 12/04/24 07:00 12/04/24 04:46 Room Air 12/04/24 02:37 Room Air 12/04/24 00:41 12/03/24 22:40 Room Air 12/03/24 19:50 Room Air 12/03/24 19:30 Room Air 12/03/24 15:30 Room Air Cardiovascular + regular rate Respiratory normal respiratory effort, lungs clear to auscultation Pre-Sedation Airway Assessment Smoking Status: Never smoker Hx Sleep Apnea: No Hx Difficult Intubation: No Short, Thick Neck: No Thyromental Distance: > or= 3.5 Finger Breadths Oral Cavity: + WNL Mallampati Class: III ASA: ASA3 NPO Status Date of Last Intake of Fluids: 12/04/24 Time of Last Intake of Fluids: 09:00 Date of Last Intake of Solid Food: 12/04/24 Time of Last Intake of Solid Foods: 09:00 Procedure Planning Contraindications for Sedation: none Current Medications Reviewed: Yes Notes The planned sedation has been discussed with the patient. Informed Consent was obtained. I have identified the patient, determined the appropriateness of sedation and have assessed the patient immediately prior to the procedure. All medicine(s) and interventions are by my order.
[2024-12-04] MEDS: diphenhydrAMINE 50 MG/ML VIAL ONE (14:29)
[2024-12-04] MEDS: NITROGLYCERIN/D5W 100MCG/ML 20ML SYR ONE (14:30)
[2024-12-04] MEDS: niCARdipine 2,000 MCG/20 ML SYR ONE (14:30)
[2024-12-04 15:09] LABS: iSTAT Art Bld Gas Base Excess -1.0 meg/L (-9-1.8)
[2024-12-04] MEDS: MIDAZOLAM HCL 1 MG/ML 2ML VIAL ONE (15:10)
[2024-12-04] MEDS: HEPARIN (PORCINE) 1000 UNIT/ML 10 ML (CATH LAB USE ONLY) ONE (15:10)
[2024-12-04] MEDS: IODIXANOL (VISIPAQUE) 320 MG/ML 100ML IV ONE (15:11)
--- NOTE | 2024-12-04 15:14 | Post Anesthesia Assessment ---
Date of Service December 04, 2024 Post Sedation Assessment Vital Signs Temp Pulse Pulse Resp BP BP Pulse Ox 12/04/24 13:05 36.6 C 84 18 131/85 98 12/04/24 11:24 36.5 C 82 20 105/70 93 12/04/24 08:25 12/04/24 07:41 36.8 C 73 18 106/71 92 12/04/24 07:00 85 12/04/24 04:46 36.7 C 76 18 105/70 95 12/04/24 02:37 36.8 C 80 16 94/63 L 91 12/04/24 00:41 85 12/03/24 22:40 36.4 C L 82 16 100/67 92 12/03/24 19:50 12/03/24 19:30 36.6 C 82 18 101/70 95 12/03/24 15:30 36.6 C 81 20 115/82 94 O2 Del Method 12/04/24 13:05 Room Air 12/04/24 11:24 Room Air 12/04/24 08:25 Room Air 12/04/24 07:41 Room Air 12/04/24 07:00 12/04/24 04:46 Room Air 12/04/24 02:37 Room Air 12/04/24 00:41 12/03/24 22:40 Room Air 12/03/24 19:50 Room Air 12/03/24 19:30 Room Air 12/03/24 15:30 Room Air Recovery Score Activity: Moves 4 extremities Respiration: Deep Breath/Cough Circulation: +/-20% PreAnes Value Consciousness: Fully Awake Oxygen Saturation: > 92% On Room Air Discharge Sedation Level of Care: Fast Track Phase II Post Sedation Plan On clinical assessment, the patient appears to have tolerated the sedation without complications. Patient is recovering as anticipated. Patient will continue to be monitored by nursing and may be discharged when sedation discharge criteria are met per below protocol. Upon Completions of procedure up to 15 minutes continue every 5 minute vital signs and the P.A.R. score; then discharge to a Phase I or Fast Track to Phase II per the following guidelines: * Discharge Patient to appropriate Phase II area if PAR is 8 or greater or return to pre- procedure baseline. The post - procedure orders will be as directed. * If PAR score is less than 8 or not return to pre-procedure baseline then patient will follow Phase I monitoring till PAR is reached for Phase II. The Phase I may be done in procedure room or may call to secure a Phase I area. * If naloxone or flumazenil are used for reversal, hold in Phase I for continued monitoring from when last reversal dose was given for a minimum of 60 minutes or longer pending the nurse and/or physician discretion of patient condition before discharge to Phase II. Please call the Sedation Physician to re-evaluate and complete post-note for discharge to Phase II area. Do NOT discharge from procedure sedation or Phase 1 until post- sedation evaluation note is complete by procedure /sedation MD Sedation Discharge Instructions to be given to the patient at discharge to home.
--- NOTE | 2024-12-04 15:19 | Cardiac Catheterization ---
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 Cardiac Status Clinical evaluation leading to the procedure CAD Presenation: Sx unlikely to be ischemic (atypical chest pain) Heart Failure: NYHA Class: CCS IV Cardiogenic Shock within 24 Hours: No Cardiac Arrest within 24 Hours: No Imaging Studies Past 6 Months: Yes Stress Studies Past 6 Months: No Coronary Anatomy Dominant: Right Diagnostic Physicians Name: Emmett Bah MD Status: Elective Closure Device Percutaneous Entry Location: Radial Closure Device: Radial Band Recommendations: Management Recommendatons Cardiac Cath Procedure Full Procedure Date December 04, 2024 Pre-Procedure Diagnosis Pre-Procedure Diagnosis: CHF and Cardiomyopathy AUC Score AUC Score: 7 Post-Procedure Diagnosis Post-Procedure Diagnosis: Normal Coronary Arteries Procedure(s) Performed Procedure(s) Performed: Coronary Angiography, Left Heart Cath, Right Heart Cath and Ultrasound Guided Vascular Access Permastone Applicator Emmett Bah MD Product Marketing Engineer(s) Sukhjinder Estimated Blood Loss Estimated Blood Loss: < 25 ml Medication(s) Medication(s): Diphenhydramine, Fentanyl, Heparin, Lidocaine 1%, Nicardipine and Versed Medication(s): solu medrol Summary of Findings Procedures: 1. Coronary angiography 2. Left heart catheterization 3. Right heart catheterization 4. Ultrasound guidance for vascular access 5. Moderate sedation Indication: Ms. Bean is a very pleasant 74-year-old female who presented with acute heart failure with reduced EF, elevated troponin, severely reduced LV systolic function, and chest discomfort. Coronary angiography: 1. Left main: No significant CAD. 2. Left anterior descending: Large-caliber vessel that wraps around the apex. No significant CAD within the LAD, small D1, or large D2. MITCHELL-3 flow. 3. Circumflex: No significant CAD within the circumflex, very small OM1, small to medium OM 2, or large OM 3. Distally, the circumflex was small caliber within the AV groove. MITCHELL-3 flow. 4. Right coronary artery: RCA is large and dominant. No significant CAD within the RCA, PDA, or PLB. MITCHELL-3 flow. Left heart catheterization: 1. Left ventriculography was not performed. 2. No aortic stenosis. Vfpk-di-ltmc gradient across the aortic valve was 0 mmHg. 3. LVEDP 24 mmHg. Right heart catheterization: 1. Pulmonary capillary wedge pressure: V wave 22 mmHg; mean 17 mmHg. 2. Pulmonary artery pressure: 38/17 with a mean of 24 mmHg. 3. Right ventricular pressure: 36/6 with RVEDP 14 mmHg. 4. Right atrial pressure: A wave 16; V wave 12; mean 6 mmHg. 5. Cardiac output via thermodilution was 2.43 L/min with a cardiac index of 1.56 L/min/m. 6. PVR 2.9 Wood units. Ultrasound guidance for vascular access: 1. Ultrasound was used to identify the right radial artery. Under ultrasound guidance, access needle was guided into the right radial artery without known complication. 6 [place] placed over the wire. Moderate sedation: 1. Sedation start time: 2:34 PM 2. Sedation end time: 3:10 PM Impression: 1. No significant CAD. 2. Elevated left-sided filling pressures. 3. Reduced cardiac output. 4. Mild pulmonary hypertension (combined pre and postcapillary). 5. No aortic stenosis. Plan: 1. Optimize goal-directed medical therapy for heart failure with reduced EF. 2. Evaluate for other secondary causes of cardiomyopathy. 3. Continue diuresis. 4. Heart failure program. Hemodynamics Rest Ao:: 112/67 Final Ao: 112/71 LV: 107/24 Recommendations Recommendations: Management Recommendatons Specimens Specimens: None Radiation Exposure (mGy) 193 mGy. Fluoro time 3.5 min. Contrast (mls) 35 ml Procedural Complication(s) None Disposition PCU I attest to the content of the Intraoperative Record and any orders documented therein. Any exceptions are noted below. [facility] Card Cath Procedure Codes Cardiac Catheterization Procedure 1: Cardiovascular Cath Procedures: 91687 Coronaries & LHC (+/-LV) & RHC Therapeutic Services & Ancillary Procedure 1: Cardiovascular Tx and Anc Procedures: 98350 Ultrasonic Guidance Vascular Access Moderate Sedation Procedure 1: Sedation/Anesthesia: 80561 Mod Sedation by the same physician;Init15 Min Child Age 5 & Up Procedure 2: Sedation/Anesthesia: 47625 Mod Sedation by the same physician; Ea [id number] Minutes Procedure 3: Sedation/Anesthesia: 77831 Mod Sedation by the same physician; Ea [id number] Minutes PG Care Time/CCT Total # of Minutes Spent Total Time Spent with Patient: Total time spent is greater than 50% in coordination of care (as documented) at patient's floor/unit and/or counseling patient:
[2024-12-04 15:24] LABS: iSTAT Art Bld Gas Base Excess -5.0 meg/L (-9-1.8)
--- NOTE | 2024-12-04 22:11 | Electrocardiogram Report ---
Test Reason : Blood Pressure : */* mmHG Vent. Rate : 98 BPM Atrial Rate : 98 BPM P-R Int : 144 ms QRS Dur : 124 ms QT Int : 346 ms P-R-T Axes : 73 -67 91 degrees QTcB Int : 441 ms Poor data quality, interpretation may be adversely affected Sinus rhythm with occasional Premature ventricular complexes Possible Left atrial enlargement Right bundle branch block Left anterior fascicular block Bifascicular block Possible Lateral infarct , age undetermined Abnormal ECG When compared with ECG of 15-Sep-2022 21:07, Premature ventricular complexes are now Present Borderline criteria for Lateral infarct are now Present Confirmed by Emmett Bah ([id number]) on 12/04/2024 10:10:43 PM Referred By: REFERRED SELF Confirmed By: Emmett Bah
--- NOTE | 2024-12-04 22:11 | Electrocardiogram Report ---
Test Reason : Blood Pressure : */* mmHG Vent. Rate : 97 BPM Atrial Rate : 97 BPM P-R Int : 146 ms QRS Dur : 122 ms QT Int : 382 ms P-R-T Axes : 74 -63 95 degrees QTcB Int : 485 ms Sinus rhythm with frequent Premature ventricular complexes Right bundle branch block Left anterior fascicular block Bifascicular block Possible Lateral infarct , age undetermined Abnormal ECG When compared with ECG of 02-Dec-2024 13:34, No significant change Confirmed by Emmett Bah ([id number]) on 12/04/2024 10:11:28 PM Referred By: REFERRED SELF Confirmed By: Emmett Bah
[2024-12-05 06:26] LABS: Hematocrit (blood only) 37.8 % (37.0-47.0); Hemoglobin 13.1 g/dl (12.0-16.0); Mean Corpuscular Hemoglobin 33.9 pg (25.0-34.0); Mean Corpuscular Volume 97.7 fL (80.0-100.0); Platelet Count 286 K/uL (130-400); RDW Standard Deviation 49.3 fL (36.4-46.3); Red Blood Count 3.87 M/uL (4.20-5.40); White Blood Count 10.87 K/ul (4.8-10.8)
[2024-12-05 06:59] LABS: Anion Gap 7.0 (3-11); Blood Urea Nitrogen 28.0 mg/dl (6-23); Calcium 8.4 mg/dl (8.6-10.3); Carbon Dioxide 25.0 mmol/L (21-32); Chloride 106.0 mmol/L (98-107); Creatinine Clr Calc Pharmacy 31.0 ml/min; Glucose 124.0 mg/dl (70-99(Fasting)); Potassium 3.9 mmol/L (3.5-5.1); Sodium 138.0 mmol/L (136-145)
--- NOTE | 2024-12-05 07:10 | Hospitalist Progress Note ---
"Date of Service December 05, 2024 Assessment & Plan (1) MONROE (dyspnea on exertion): (2) Orthopnea: (3) Elevated troponin: (4) Urinary tract infection: (5) Hypertension: Plan Miryam is a 74-year-old female with a past medical history of hypertension, kidney stones, CKD 3, depression, and anxiety, hypothyroidism and osteoarthritis who presents to the ER with worsening shortness of breath and dyspnea on exertion. initial workup concerning for elevated BNP and fluid overload on chest x-ray with mild pleural effusions - admitted for CHF workup. #MONROE | Orthopnea | New HFrEF - suspicious for new onset CHF with elevated BNP 2605 and CXR with concerns for pleural effusions. Biofire negative. Echo with EF 25-30%, akinesis of mild inferior lateral wall and global hypokinesis. No left ventricular hypertrophy bilateral atrial dilation. Cardiology consultedRight and Left cath completed 12/04- no CAD noted Initiating GDMT- Monitoring kidney function: Cr increased from 1.17 to 1.26 this AM Started carvedilol 12/04. Started Entresto 26/26mg BID on 12/05 Waiting to start spironolactone Will need outpatient CHF clinic f/u Pt appearing euvolemic-Holding IV lasix Continue strict I&O #Elevated troponin 233 on admission, peaked at 245 Heart cath completed- not noted CAD. Dx- CHF and cardiomyopathy Plan for goal-directed medical therapy as above #UTI - with multiple in the last three months. Symptomatic on admission with frequency and leukocytosis. Continue ceftriaxone - E.coli is sensitive DC after 12/08 Consider Methenamine or D- mannose after completion of abx. Continue estrogen vaginal cream #HTN - BP has been stable Amlodipine discontinued 12/03 to allow for GDMT, management per cardiology Continue Carvedilol 3.125mg BID #Mental Health - continue Cymbalta Dispo: continued inpatient stay, Med/tele DVT: lovenox Follow-ups on discharge: Cardiology, CHF clinic Admission and Anticipated Discharge Date Admission Date: December 02, 2024 Supervising Physician Co-Signing Physician Notes I personally examined the patient and verified all coon points of history and exam, discussed case, and agree with decision making with Dr Gibbs Far less dyspneic than whenever she came in. Extensive discussions on diagnosis, plans, lifestyle change, etc. Vitals noted, in general she is awake and alert pleasant no distress. HEENT normocephalic atraumatic mucous membranes moist. Breathing unlabored no accessory muscle use good effort. Skin without rashes pallor or icterus. Neuro without focal deficits. 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 On room air, clear lungs, dyspnea better, creatinine slightly bumpedi.e. hold Lasix. Started on carvedi lol last night, start Entresto today. Educated on sodium restriction. Hopefully home soon. DVT prophylaxisLovenox otherwise as above. Subjective Pt is a 74 yo female who underwent R and L heart catheterization yesterday. This morning, pt reports she had an episode of chest pressure/pain that lasted for 1- 2 minutes. It was accompanied by nausea. Symptoms resolved quickly. Pt states her SOB is significantly improved and she is able to walk around her hospital room without difficulty. Pt notes minimal BM since admission and has history of hemorrhoids. She has had some mild omayra blood on toilet paper after last BM and is noting constipation. Denies SOB, headaches, dizziness, abdominal pain, V/D, dysuria, new arthralgias/myalgias, changes in vision/hearing/sensation Review of Systems Review of Systems: As per HPI Physical Exam Physical Exam: General: NAD, VS as above Resp: CTAB, normal respiratory effort, no conversational dyspnea today CV: RRR, no murmur, No LE edema Abd: normal bowel sounds, mildly tender at LLQ, soft, nondistended Extremities: Moves all extremities, no changes in sensation Neuro: A&O x3, mood congruent Skin: intact, no lesions or rashes noted Results & Data Results & Data Vital Signs (Past 12 Hours) Vital Signs Temp Pulse Pulse Pulse Resp BP Pulse Ox 12/05/24 03:22 92/55 L 12/05/24 03:18 36.4 C L 72 16 92 12/04/24 22:35 36.4 C L 82 18 103/64 93 12/04/24 21:43 86 12/04/24 19:09 36.2 C L 83 16 103/69 93 O2 Del Method 12/05/24 03:22 12/05/24 03:18 CPAP 12/04/24 22:35 Room Air 12/04/24 21:43 12/04/24 19:09 Room Air Resident Activity Tracking Resident Involvement: Resident Care Provided Care Provided: Adult Hospital Medicine (4) Urinary tract infection Urinary tract infection type: acute cystitis"
--- NOTE | 2024-12-05 16:58 | Billing Data ---
Date of Service December 05, 2024 Coding Level of Care Code 64215 SUB INP/OBS CARE MIN
[2024-12-05] MEDS: VALSARTAN/SACUBITRIL 26/24MG TAB PO SCH (21:32)
--- NOTE | 2024-12-06 06:54 | Hospitalist Progress Note ---
Date of Service December 06, 2024 Assessment & Plan (1) MONROE (dyspnea on exertion): (2) Orthopnea: (3) Elevated troponin: (4) Urinary tract infection: (5) Hypertension: Plan Miryam is a 74-year-old female with a past medical history of hypertension, kidney stones, CKD 3, depression, and anxiety, hypothyroidism and osteoarthritis who presents to the ER with worsening shortness of breath and dyspnea on exertion. initial workup concerning for elevated BNP and fluid overload on chest x-ray with mild pleural effusions - admitted for CHF workup. #MONROE | Orthopnea | New HFrEF - suspicious for new onset CHF with elevated BNP 2605 and CXR with concerns for pleural effusions. Biofire negative. Echo with EF 25-30%, akinesis of mild inferior lateral wall and global hypokinesis. No left ventricular hypertrophy bilateral atrial dilation. Cardiology consultedRight and Left cath completed 12/04- no CAD noted Initiating GDMT- Monitoring kidney function: Cr has stabilized at 1.14 Started carvedilol 12/04. Started Entresto 26/26mg BID on 12/05 Initiating spironolactone 12.5mg this AM Will need outpatient CHF clinic f/u Pt appearing euvolemic-Continue holding IV lasix Continue strict I&O #Elevated troponin 233 on admission, peaked at 245 Heart cath completed- not noted CAD. Dx- CHF and cardiomyopathy Plan for goal-directed medical therapy as above #UTI - with multiple in the last three months. Symptomatic on admission with frequency and leukocytosis. Continue ceftriaxone - E.coli is sensitive DC after 12/08 Consider Methenamine or D- mannose after completion of abx. Continue estrogen vaginal cream #HTN - BP has been stable Amlodipine discontinued 12/03 to allow for GDMT, management per cardiology Continue Carvedilol 3.125mg BID #Mental Health - continue Cymbalta Dispo: continued inpatient stay, Med/tele DVT: lovenox Follow-ups on discharge: Cardiology, CHF clinic Admission and Anticipated Discharge Date Admission Date: December 02, 2024 Subjective Pt is a 74 yo female who was admitted for CHF in setting of cardiomyopathy. Pt's SOB has resolved. She notes she had several episodes chest pressure yesterday that were "like a light switch going on and off". The last event was approx 1145pm. She states she has not had an episodes since that time. Pt reports bowels have been moving better, however, she would like to try another dose of miralax today. Denies SOB, headaches, dizziness, abdominal pain, V/D, dysuria, new arthralgias/myalgias, changes in vision/hearing/sensation Review of Systems Review of Systems: As per HPI Physical Exam Physical Exam: General: NAD, VS as above Resp: CTAB, normal respiratory effort, no conversational dyspnea today CV: RRR, no murmur, No LE edema Abd: normal bowel sounds, non tender, soft, nondistended Extremities: Moves all extremities, no changes in sensation Neuro: A&O x3, mood congruent Skin: intact, no lesions or rashes noted Results & Data Results & Data Vital Signs (Past 12 Hours) Vital Signs Temp Pulse Pulse Pulse Resp BP Pulse Ox 12/06/24 03:18 36.8 C 82 18 106/70 94 12/05/24 22:43 36.5 C 90 20 102/71 93 12/05/24 21:42 8 L 12/05/24 19:36 37 C 79 20 92/62 L 94 O2 Del Method 12/06/24 03:18 Room Air 12/05/24 22:43 Room Air 12/05/24 21:42 12/05/24 19:36 Room Air (4) Urinary tract infection Urinary tract infection type: acute cystitis
[2024-12-06 06:56] LABS: Hematocrit (blood only) 41.7 % (37.0-47.0); Hemoglobin 13.2 g/dl (12.0-16.0); Mean Corpuscular Hemoglobin 31.7 pg (25.0-34.0); Mean Corpuscular Volume 100.2 fL (80.0-100.0); Platelet Count 286 K/uL (130-400); RDW Standard Deviation 52.4 fL (36.4-46.3); Red Blood Count 4.16 M/uL (4.20-5.40); White Blood Count 9.35 K/ul (4.8-10.8)
[2024-12-06 07:36] LABS: Anion Gap 5.0 (3-11); Blood Urea Nitrogen 26.0 mg/dl (6-23); Calcium 8.5 mg/dl (8.6-10.3); Carbon Dioxide 27.0 mmol/L (21-32); Chloride 109.0 mmol/L (98-107); Creatinine Clr Calc Pharmacy 34.2 ml/min; Glucose 99.0 mg/dl (70-99(Fasting)); Potassium 3.8 mmol/L (3.5-5.1); Sodium 141.0 mmol/L (136-145)
[2024-12-06] MEDS: POLYETHYLENE (MIRALAX) 17 GM PACK PO PRN (08:02)
[2024-12-06] MEDS: SPIRONOLACTONE 12.5 MG TAB PO SCH (09:52)
[2024-12-06 12:13] VITALS: BP 97/68; RESP 18; TEMP 98.1; O2SAT 97
[2024-12-06 13:14] VITALS: PULSE 90
--- NOTE | 2024-12-06 13:36 | Discharge Summary ---
Date of Service December 06, 2024 Admission HPI Per Admitting Provider Miryam is a 74-year-old female with a past medical history of hypertension, kidney stones, CKD 3, depression, and anxiety, hypothyroidism and osteoarthritis who presents to the ER with worsening shortness of breath and dyspnea on exertion. States that this has been gradually increasing over the last 2 weeks however the reason she came in today she was seeing her PCP outpatient and got significantly short of breath walking to the appointment that she had to stop and catch her breath. She has not noticed any weight change. She has noticed over the last 2 weeks that she has had shortness of breath when lying flat. She normally is pretty active and does not use assistive devices. reports that she had 2 EKGs at her PCPs office that were "noisy" and sent over here. Only recent medication changes that she has been on and off antibiotics for the last 3 months for urinary tract infections. She does not wear briefs/depends, has been placed on estrogen vaginal cream for UTI prevention. Does have some urinary and stress incontinence No recent dietary changes She would like to be a DNR ED course: Lasix 20 mg IV x 1 Ceftriaxone 2 g IV Principal Diagnosis Cardiomyopathy, CHF Discharge Exam General: NAD, VS as above Resp: CTAB, normal respiratory effort, no conversational dyspnea today CV: RRR, no murmur, No LE edema Abd: normal bowel sounds, non tender, soft, nondistended Extremities: Moves all extremities, no changes in sensation Neuro: A&O x3, mood congruent Skin: intact, no lesions or rashes noted Discharge Data Allergies Allergy/AdvReac Type Severity Reaction Status Date / Time Iodinated Contrast Media Allergy Severe anaphylaxis Verified 06/24/24 09:52 meloxicam Allergy Severe Unresponsiv Verified 06/24/24 09:52 e oxybutynin Allergy Severe Verified 06/24/24 09:52 diltiazem Allergy Unknown PT CAN'T Verified 06/24/24 09:52 REMEMBER RXN. ? NOT EFFECTIVE. penicillamine Allergy Unknown RASH, Verified 06/24/24 09:52 lupus-like rx Sulfa (Sulfonamide Allergy Unknown Rash Verified 06/24/24 09:52 Antibiotics) alendronate sodium AdvReac Unknown WASN'T Verified 06/24/24 09:52 EFFECTIVE gabapentin AdvReac Unknown hallucinati Verified 06/24/24 09:52 ons hydroxyzine AdvReac Unknown Nausea/DIZZ Verified 06/24/24 09:52 Y. mirtazapine [From Remeron] AdvReac Unknown Migraines/very Verified 06/24/24 09:52 lucid horrible dreams. NSAIDS (Non-Steroidal AdvReac Unknown WAS ON Verified 06/24/24 09:52 Anti-Inflamma HIGH DOSES CAUSED KIDNEY DAMAGE. venlafaxine [From Effexor] AdvReac Unknown Dizziness Verified 06/24/24 09:52 Cuprimine CAPS Allergy Unknown PT DOESN'T Uncoded 06/24/24 09:52 REMEMBER RX. Opioid Analgesics AdvReac Unknown N/V. Uncoded 06/24/24 09:52 Consultations 12/02/24 15:41 ED Decision to Admit Stat 12/04/24 08:00 Consult Cardiology Routine 12/04/24 11:00 [facility] CHF Program Referral Routine Procedures Performed Operation Date: 12/04/24 14:00 Actual Procedures p Cineradiography w/Routine Exam - Emmett Bah MD p Cath, Right and Left Heart - Emmett Bah MD Ordered Studies 12/04/24 10:45 CL Cath Imgs for PACS use only Routine Hospital Course (1) MONROE (dyspnea on exertion): (2) Orthopnea: (3) Elevated troponin: (4) Urinary tract infection: (5) Hypertension: Toi Witt is a 74-year-old female with a past medical history of hypertension, kidney stones, CKD 3, depression, and anxiety, hypothyroidism and osteoarthritis who presents to the ER with worsening shortness of breath and dyspnea on exertion. initial workup concerning for elevated BNP and fluid overload on chest x-ray with mild pleural effusions - admitted for CHF workup. #MONROE | Orthopnea | New HFrEF - suspicious for new onset CHF with elevated BNP 2605 and CXR with concerns for pleural effusions. Biofire negative. Echo with EF 25-30%, akinesis of mild inferior lateral wall and global hypokinesis. No left ventricular hypertrophy bilateral atrial dilation. Cardiology consultedRight and Left cath completed 12/04- no CAD noted Initiating GDMT- Monitoring kidney function: Cr has stabilized at 1.14 Started carvedilol 12/04. Started Entresto 26/26mg BID on 12/05 Initiating spironolactone 12.5mg this AM Will need outpatient CHF clinic f/u Pt appearing euvolemic-Continue holding IV lasix PO lasix upon DC for prn use Continue strict I&O #Elevated troponin 233 on admission, peaked at 245 Heart cath completed- not noted CAD. Dx- CHF and cardiomyopathy Plan for goal-directed medical therapy as above #UTI - with multiple in the last three months. Symptomatic on admission with frequency and leukocytosis. Continue ceftriaxone - E.coli is sensitive Transition to PO cefdinir 600mg daily for 2 days to complete course Consider Methenamine or D- mannose after completion of abx. Continue estrogen vaginal cream #HTN - BP has been stable Amlodipine discontinued 12/03 to allow for GDMT, management per cardiology Continue Carvedilol 3.125mg BID #Mental Health - continue Cymbalta Dispo: continued inpatient stay, Med/tele DVT: lovenox Follow-ups on discharge: Cardiology, CHF clinic Total Time Total Time Spent Total Time Spent (In Minutes): less than 30 Discharge Plan Discharge Items Patient Disposition: Home - Self-Care Reason For Visit: MONROE, ORTHOPNEA Discharge Diagnosis: Cardiomyopathy Condition on Discharge: Good Activity: Resume your previous activity Non-emergency contact: Primary Care Provider Call non-emergency contact if: your symptoms worsen Follow-up/Referrals: Coco Jain PA-C [Physician Damage Appraiser] - 12/14/24 2:00 pm Amirah Lopez PA-C [Primary Care Provider] - Diet: Heart Healthy Addtl Attending Provider Instructions: Congestive Heart Failure: Discharge Instructions Congestive Heart Failure ؠ Congestive Heart Failure essentially means your heart is able to have a "traffic jam" of fluid that backs up into your lungs. ؠ Fluid in lungs, blocks up breathing space making you feel short of breath. ؠ In the hospital, our job is to get the fluid off so that you are able to breathe better, and then get you back on track with medication and lifestyle adjustments to keep the traffic jam from happening again. Salt (Sodium) ؠ About 90% of people admitted to the hospital with fluid back up into the lungs get there because of too much salt in their diet. ؠ The way our kidneys work: when you take a small amount of sodium, your kidneys hold onto a small amount of water. When you take a large amount of sodium, your kidneys hold onto a large amount of water. When this happens, your blood vessels get flooded, your heart gets overfilled, and the fluid backs up into your lungs. ؠ Most people know to avoid the salt shaker, but sodium is in almost anything prepackaged/prepared, as a preservative or as a flavoring agent. Most of the people we take care of who are here from fluid getting backed up, because of too much sodium do not use a salt shaker at all. ؠ Get into the habit of looking at food labels, so you can see how much sodium is in the foods you eat. The most important number to look at is how much sodium is in each serving. But also notice the size of a serving. Food madhu petrona will frequently make a serving size so tiny that it does not look like there is much sodium per serving, but a normal person might eat 3 or 4 servings of the food and take in a lot more sodium. ؠ Keep a "budget" of how much sodium you take in in each day. Most people stay out of trouble and stay out of the hospital as long as they stay "under budget". ؠ Majority of congestive heart failure patients do well if they take less than 2000 mg of sodium a day. Because our kidneys retain water based on how much sodium they are seeing in any given moment, it is also important to stay at less than about 500 mg in any given meal. This is because even if you stayed at less than 2000 mg of sodium, but ate it all at once, your kidneys would retain fluid at a rate as though you are taking in much more sodium than you actually are. Following How You Are Doing (Wet Versus Dry) Because managing congestive heart failure is an ongoing process, it is very important to learn how to follow your signs and symptoms and track how you are doing at home. This will allow you to catch problems before they become a big deal. In general, as your health care team, we look at managing congestive heart failure chronically as a balance of being "wet" (flooded with fluid) versus being "dry" (dehydrated from treatment). Wet - signs of fluid retention that would warrant further evaluation: ؠ Check your weight daily. If your weight goes up by more than 2 pounds in 1 day, it is almost certainly fluid related. This should warrant further thought, and/or a call to your doctor ؠ Follow your breathingmost of the time, early on when fluid backs up into your lungs, you will first start to notice shortness of breath when walking, or when lying flat. If you notice either of these, this should warrant further thought, and/or a call to your doctor ؠ If you notice both an increase in weight and worsening breathing, that definitely warrants getting seen as soon as possible "Dry"while managing the disease our goal is to keep you from getting "wet"; however, the medications can sometimes cause a degree of dehydration. ؠ Most people with congestive heart failure need frequent lab work (basic metabolic panel). Generally when there has been a change in diuretic dosing (a change in the water pill) or any other major changes, lab work should be followed closely and more frequently afterwards. This is because lab work will frequently show early signs of dehydration before you start to feel bad. ؠ Frequent symptoms of being dehydrated include: feeling weak and lightheaded, having lower blood pressures, making less urine than usual, or having a very dry mouth. If you notice any of these signs/symptoms, and you are not due for lab work, it would be quite reasonable to call your doctor to see if lab work or a visit could be arranged. Heart Failure Management Checklist * Limit Salt (Sodium) Intake to 2000mg (2g) per day and 500mg (0.5g) per meal * Check weight daily (in same clothes, without shoes) every morning * Use the provided chart to enter your weight and salt intake for the day Are you too wet? * If you gained 2lb or more - make sure to take your water pill * If your breathing is not good (you are more short of breath than usual) call your doctor regardless of weight change * If you gained 2lb or more and you are short of breath, see your doctor or come to the emergency room Are you too dry? * If you fee weak or lightheaded, have lower blood pressures, make less urine than usual, or have a very dry mouth. Call your doctor Daily Weight and Salt Intake Chart Baseline Weight Total Daily Salt Intake Limit: 2000 mg (2 g) Daily Weight (lbs) Daily Salt Intake (mg) Day 1 Day 2 Day 3 Day 4 Day 5 Day 6 Day 7 Day 8 Day 9 Day 10 Day 11 Day 12 Day 13 Day 14 Day 15 Day 16 Day 17 Day 18 Day 19 Day 20 Day 21 Day 22 Day 23 Day 24 Day 25 Day 26 Day 27 Day 28 Day 29 Day 30 Check labels to see how much salt there is! Dont forget that if you have more than 1 serving size, you have to increase the salt! For example, 15 chips is 170mg of salt, but 30 chips would be 340mg. Addtl Lathe Machine Operator Provider Instructions: You were admitted for shortness of breath which was found to be due an accumulation of extra fluid in your lungs because of weakness in your heart. The echocardiogram showed that you do not have coronary artery disease. Your leather finisher recommended starting medical therapy to improve your heart function. We have initiated all of these medications and they have been called into your pharmacy. We will also be prescribing a "water pill"- Lasix. This is to used on an as needed basis. You would need to use this medication if your weight increases by 2 lbs overnight and/or you note increased shortness of breath. You can take the Lasix daily until weight/breathing difficulty resolves or up to 3 days. If symtpoms extend beyond 3 days, please contact your PCP. You were also found to have a urinary tract infection. You have been treated with IV antibiotics. This will be transitioned to an oral antibiotic to finish the last 2 days of the course of treatment. You may resume your previous medication. Please pick up man the following prescriptions Carvedilol 3.125mg taken 2 times daily Entresto 28/24mg taken 1 time daily Spironolactone 12.5mg 1 time daily Lasix (furosemide) 40mg 1 daily Cefdinir 600mg 1 time daily for 2 days Please follow up with your PCP in 7-10 days Please follow up with [facility] Cardiology- Dr. Bah Thank you for letting us be apart of your health care. Pending Studies at Discharge: No Stand-Alone Forms: [facility], Smoking Cessation Medications and DC Order Prescriptions: New polyethylene glycol 3350 [Miralax] 17 gram Powder In Packet 17 g PO DAILY PRN (Reason: constipation) Qty: 14 0RF spironolactone 25 mg Tablet 12.5 mg PO DAILY 30 Days Qty: 15 0RF carvedilol 3.125 mg Tablet 3.125 mg PO BIDM 30 Days Qty: 60 0RF sacubitril-valsartan [Entresto] 24-26 mg Tablet 1 tab PO BID 30 Days Qty: 60 0RF cefdinir 300 mg capsule 600 mg PO ONCE Qty: 4 0RF furosemide 40 mg tablet 40 mg PO DAILY PRN (Reason: weight gain) Qty: 20 0RF Rx Instructions: Take one tablet daily for 2 lbs weight gain and/or difficulty breathing. Stop daily dosing when symptoms resolve or at 3 days of treatment. Continued estradiol 0.01 % (0.1 mg/gram) cream 1 g vaginal DAILY PRN (Reason: Vaginal Dryness) Qty: 42.5 2RF Rx Instructions: use with pessary cleaning Prolia 60 mg/mL syringe 60 mg subcut ONCE Qty: 1 1RF Rx Instructions: BUY and BILL [employer] auth [id number] Call Ref # [id number] nitroglycerin 0.4 mg tablet, sublingual 0.4 mg sublingual UD PRN (Reason: Chest Pain) Qty: 100 3RF Rx Instructions: TAKE UNDER TONGUE NEEDED DIRECTED BY THE PHYSCIAN cyanocobalamin (vitamin B-12) 1,000 mcg capsule 1,000 mcg PO QDL valacyclovir 500 mg tablet 500 mg PO HS cimetidine 400 mg tablet 400 mg PO TID Rx Instructions: administer with meals sumatriptan succinate [Imitrex] 100 mg Tablet 100 mg PO DIRECTED PRN (Reason: Migraine Headache) glucosamine sulfate 500 mg Capsule 500 mg PO TID vitamin E 400 unit Capsule 400 unit PO QAM topiramate 100 mg tablet 100 mg PO AMHS Probiotic 10 billion cell Capsule 1.75 cell PO QAM Patient Comments: allign gummies pre and probiotic / dual. cholecalciferol (vitamin D3) 50 mcg (2,000 unit) Tablet 50 mcg PO QDD calcium citrate-vitamin D3 250 mg-5 mcg (200 unit) Tablet 1 tab PO TID ascorbic acid (vitamin C) [Vitamin C] 1,000 mg Tablet 1 g PO QDD duloxetine 30 mg capsule,delayed release(DR/EC) 30 mg PO QDD duloxetine 60 mg capsule,delayed release(DR/EC) 60 mg PO QDD levothyroxine 100 mcg tablet 100 mcg PO DAILYBB trazodone 50 mg tablet 25 mg PO HS Macular Health Formula 5-1-7.5 mg Capsule 1 cap PO QAM omeprazole 1 tab PO UD Rx Instructions: new order has not started yet...unknown strength No Action amlodipine 2.5 mg tablet 2.5 mg PO QPM Qty: 100 3RF Discharge Orders: Discharge Order (Routine); Ordered 12/06/24 Ordered By: Loree Gibbs Admission Data Admit Date/Time: 12/02/24 16:31 Attending Provider: Abhishek Young Admit Provider: Hayden Chicas Primary Care Provider: Amirah Lopez Other Providers: Hayden Chicas; Coco Jain; Emmett Bah Other Interventions: Discharge Summary Assessment (RN) Last Done: 12/06/24 13:12 Supervising Physician Co-Signing Physician Notes I personally examined the patient and verified all coon points of history and exam, discussed case, and agree with decision making with Dr Gibbs feels well enough to go home. Extensive discussions on medications, sodium, following fluid status, etc.. Vitals noted, in general she is awake and alert pleasant no distress. HEENT normocephalic atraumatic mucous membranes moist. Breathing unlabored no accessory muscle use good effort. Skin without rashes pallor or icterus. Neuro without focal deficits. 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 - On room air, vital stable, feeling well - home on current dosing of Coreg, Entresto, spironolactonetitrate up as an outpatient (and put Norvasc on hold for now to allow for more room and her blood pressure to titrate up on the Entresto and Coreg. Should she have any increase in angina, then Norvasc can be restartedbut I suspect it was not really helping much given that she has her cardiomyopathy in spite of having been on the Norvasc the whole time) - hold off on Jardiance due to frequent and recurrent UTIs - extensive education on sodium restriction - Daily weights, follow-up symptomssymptom and weight triggered Lasixfor now instructed that if she gains more than 2 pounds to take Lasix 40 mg daily until resuming her dry weight; similarly if her weight goes up at all and is accompanied by dyspnea/dyspnea on exertion/orthopnea, she should take 40 mg of Lasix until symptoms and weight have resolved. Further discussed if she is on Lasix for more than 3 days she should seek physician guidance DVT prophylaxisLovenox utilized during her stay outpt PCP and cardiology f/u otherwise as above. Resident Activity Tracking Resident Involvement: Resident Care Provided Care Provided: Adult Hospital Medicine
--- NOTE | 2024-12-06 14:45 | Billing Data ---
Date of Service December 06, 2024 Coding Level of Care Code 78692 IN/OBS DISCH 30 MIN/LESS
== END 2024-12-06 18:16 | disposition home or self-care (01) | DRG 286 ==
LOC: ED 13:23 → EDINP 16:31 → SUATTDRO 16:31 → 2N 17:21 → 2S 12-04 12:52